=== PATIENT | female | born 1965 | race American Indian/Alaskan Native ===

== ENCOUNTER 2016-11-04 10:28 | Inpatient (IN) | payer MEDICARE ==
[2016-11-04] MEDS ORDERED: TRIDIL DRIP 50MG/250ML 250 ML ONE (10:40)
[2016-11-04] MEDS ORDERED: ATIVAN ONE (10:40)
[2016-11-04] MEDS ORDERED: ATIVAN IV ONE (10:53)
[2016-11-04] MEDS ORDERED: TRIDIL DRIP 50MG/250ML 250 ML IV SCH (11:00)
--- NOTE | 2016-11-04 11:06 | XRay Report ---
PORTABLE CHEST INDICATION: Respiratory distress. COMPARISON: 09/29/2016 FINDINGS: Portable, frontal chest radiograph again demonstrates congestive appearance with stable right sided central catheter. Mild cardiomegaly and light left retrocardiac opacity with partially obscured left hemidiaphragm. Mild fluid or thickening along the right minor fissure is new. EKG leads. Stable bones. CONCLUSION: Pulmonary vascular congestion again noted, as described. Thank you for the opportunity to participate in this patient's care.
--- NOTE | 2016-11-04 11:26 | Emergency Department Report ---
ED Shortness of Breath HPI - General Chief Complaint: Dyspnea/Respdistress Stated Complaint: MARVIN Time Seen by Provider: 11/04/16 10:32 Source: patient, EMS Mode of arrival: Stretcher Limitations: No Limitations - History of Present Illness Initial Comments: 51-year-old female presents to the emergency department via EMS in respiratory distress. Patient reports onset of symptoms earlier this morning. She denies chest pain or fever. She does report cough that is nonproductive. Patient usually gets dialysis on Thursday, , and Thursday. She has missed her last 2 treatments. There are no other complaints. MD Complaint: shortness of breath, cough -: Sudden, This morning Consistency: constant Improves With: nothing Known History Of: other (ESRD) Associated Symptoms: denies other symptoms Treatments Prior to Arrival: oxygen - Related Data Home Medications Medication Instructions Recorded Confirmed Last Taken Megestrol Acetate 40 ml PO DAILY 07/27/16 09/30/16 1 Day Ago Aspirin [Aspirin BABY CHEW TAB] 81 mg PO QDAY 09/30/16 09/30/16 1 Day Ago Calcium Carbonate [Calcium] 600 mg PO DAILY 09/30/16 09/30/16 1 Day Ago Carvedilol [Coreg] 12.5 mg PO BID 09/30/16 09/30/16 1 Day Ago Allergies Allergy/AdvReac Type Severity Reaction Status Date / Time No Known Allergies Allergy Unverified 07/23/15 13:08 ED Review of Systems ROS: Stated complaint: MARVIN Other details as noted in HPI Comment: All other systems reviewed and negative Respiratory: cough, shortness of breath ED Past Medical Hx - Past Medical History Previous Medical History?: Yes Hx Hypertension: Yes Hx Congestive Heart Failure: Yes Hx Renal Disease: Yes (ESRD,HD) Hx Arthritis: Yes Additional medical history: LUPUS - Surgical History Past Surgical History?: Yes Additional Surgical History: TONSILECTOMY. ovarian cyst removed. perma cath right chest - Family History Family history: no significant - Social History Smoking Status: Never Smoker Substance Use Type: None - Medications Home Medications: Home Medications Medication Instructions Recorded Confirmed Last Taken Type Megestrol Acetate 40 ml PO DAILY 07/27/16 09/30/16 1 Day Ago History Aspirin [Aspirin BABY CHEW TAB] 81 mg PO QDAY 09/30/16 09/30/16 1 Day Ago History Calcium Carbonate [Calcium] 600 mg PO DAILY 09/30/16 09/30/16 1 Day Ago History Carvedilol [Coreg] 12.5 mg PO BID 09/30/16 09/30/16 1 Day Ago History ED Physical Exam - General Limitations: No Limitations General appearance: alert, in distress (severe respiratory distress) - Head Head exam: Present: atraumatic, normocephalic - Eye Eye exam: Present: normal appearance, PERRL, EOMI - ENT ENT exam: Present: normal exam, normal orophraynx, mucous membranes moist - Neck Neck exam: Present: normal inspection, full ROM. Absent: tenderness - Respiratory Respiratory exam: Present: respiratory distress (moderate tachypnea), accessory muscle use, decreased breath sounds (diffuse bilateral posterior) - Cardiovascular Cardiovascular Exam: Present: normal rhythm, tachycardia, normal heart sounds - GI/Abdominal GI/Abdominal exam: Present: soft, normal bowel sounds. Absent: distended, tenderness - Extremities Exam Extremities exam: Present: normal inspection, full ROM. Absent: tenderness - Back Exam Back exam: Present: normal inspection, full ROM. Absent: tenderness - Neurological Exam Neurological exam: Present: alert, oriented X3. Absent: motor sensory deficit - Skin Skin exam: Present: warm, dry, intact ED Course Vital Signs 11/04/16 11/04/16 11/04/16 10:30 10:42 11:04 Pulse Rate 100 H 130 H 125 H Respiratory 38 H 48 H 44 H Rate Blood Pressure 198/94 138/82 O2 Sat by Pulse 98 100 99 Oximetry 11/04/16 11/04/16 11/04/16 11:05 11:08 11:15 Pulse Rate 122 H 125 H Respiratory 50 H 57 H 38 H Rate Blood Pressure 132/79 O2 Sat by Pulse 100 100 100 Oximetry 11/04/16 11/04/16 11/04/16 11:30 11:32 11:47 Pulse Rate 122 H 121 H Respiratory 63 H 59 H 48 H Rate Blood Pressure 134/80 132/79 O2 Sat by Pulse 100 100 100 Oximetry ED Medical Decision Making - Lab Data Result diagrams: 11/04/16 11:06 11/04/16 11:06 - EKG Data -: EKG Interpreted by Oh EKG shows normal: sinus rhythm, axis, intervals, QRS complexes Rate: tachycardia - EKG Data When compared to previous EKG there are: previous EKG unavailable Interpretation: nonspecific ST-T wave bebo - Radiology Data Radiology results: image reviewed interpreted by me: Portable chest x-ray shows changes consistent with pulmonary edema. - Medical Decision Making Upon arrival, the patient was placed on BiPAP and started on a nitroglycerin drip due to the elevated blood pressure and pulmonary edema on chest x-ray. I have spoken with Dr. Hill, nephrology. Patient is being set up for emergent dialysis. Patient is to be admitted by the hospitalist. - Differential Diagnosis pulmonary edema, CHF, electrolyte abnormality Critical Care Time: Yes Critical care time in (mins) excluding proc time.: 30 Critical care attestation.: If time is entered above; I have spent that time in minutes in the direct care of this critically ill patient, excluding procedure time. Critical Care Time: The high probability of a clinically significant, sudden or life threatening deterioration of the respiratory system(s) required my full and direct attention , intervention and personal management. The aggregate critical care time was 30 minutes. This time is in addition to time spent performing reported procedures but includes the following: [x] Data Review and interpretation [x] Patient assessment and monitoring of vital signs [x] Documentation [x] Medication orders and management ED Disposition Clinical Impression: ESRD on hemodialysis Volume overload Qualifiers: Hypervolemia type: other Qualified Code(s): E87.79 - Other fluid overload Pulmonary edema Qualifiers: Chronicity: acute Qualified Code(s): J81.0 - Acute pulmonary edema Disposition: OP ADMITTED IP TO THIS HOSP Is pt being admited?: Yes Condition: Fair Instructions: Pulmonary Edema (ED) Referrals: PRIMARY CAREMD [Primary Care Provider] - 3-5 Days Time of Disposition: 11:25
--- NOTE | 2016-11-04 11:32 | Admit Criteria Form ---
Admission Criteria Documentation: RENAL FAILURE, CHRONIC Clinical Indications for Admission to Inpatient Care (Place 'X' for any and all applicable criteria): Admission is indicated for ANY ONE of the following (1)(2)(3)(4)(5): [X ]I. Inpatient admission required rather than observation care (Use Renal Failure, Chronic: Observation Care Criteria as appropriate) because of ANY ONE of the following: [ X]a) Volume overload or uremic symptoms (eg, clinically significant pulmonary edema, hypertension, pericarditis, acidosis) too severe for, or not responsive (eg, for over 24 hours) to emergency department or observation care dialysis or treatment regimen (11) [ ]b) Hemodynamic instability that is severe or persistent [ ]c) Respiratory distress that is severe or persistent (11) [ ]d) Clinically significant electrolyte abnormality that requires inpatient care (eg,hyperkalemia with severe ECG findings)[B] [ ]e) Supplement O2 or respiratory therapy for over 24hrs that is performable only in acute inpatient setting [ ]f) Continuous IV infusion of anticoagulation, platelet inhibitor, vasoactive, or Antiarrhythmic medication (15), [ ]g) Pulmonary artery catheter monitoring [ ]h) Temporary pacemaker placement [ ]i) Emergent pericardiocentesis [ ]j) Other condition, treatment or monitoring requiring inpatient admission [ ]II. Unexplained syncope [A] [ ]III. Recurrent seizures [ ]IV. Severe infections not treatable in outpatient setting (eg, peritonitis)(9 ) [ ]V. Cardiac arrhythmias of immediate concern [ ]. Encephalopathy [ ]VII.Bleeding abnormalities (eg, platelet dysfunction) with active (eg, gastrointestinal) bleeding Extended stay beyond goal length of stay may be needed for (3)(4)(35)(36): [ ]a) Continuing uremic complications [ ]b) Comorbidities or complications The original [employer] content created by [employer] has been revised. The portions of the content which have been revised are identified through the use of italic text or in bold, and [facility] has neither reviewed nor approved the modified material. All other unmodified content is copyright [employer] Please see references footnoted in the original [facility] edition 2016 Admission Criteria Met: Yes
--- NOTE | 2016-11-04 11:33 | Consultation ---
History of Present Illness - Reason for Consult Consult date: 11/04/16 end stage renal disease - History of Present Illness This is a 51 year old female who has ESRD and is on hemodialysis every Thursday, and Thursday at [facility]. Patient missed hemodialysis on Thursday and presents to the E.R today which is also her dialysis day with a chief complaint of Shortness of breath. We are being consulted for provision of hemodialysis. Potassium level 7.5 on printed lab sheet. Patient to receive Kayexalate and STAT hemodialysis orders have been placed. Also reenforced compliance with hemodialysis with patient. Past History Past Medical History: anemia, diabetes, dialysis, ESRD, hypertension, renal failure Past Surgical History: Other (Perm-catheter placement) Social history: no significant social history Family history: no significant family history Medications and Allergies Allergies Allergy/AdvReac Type Severity Reaction Status Date / Time No Known Allergies Allergy Unverified 07/23/15 13:08 Home Medications Medication Instructions Recorded Confirmed Last Taken Type RX: Megestrol Acetate 40 ml PO DAILY 07/27/16 11/04/16 1 Day Ago History RX: Aspirin [Aspirin BABY CHEW TAB] 81 mg PO QDAY 09/30/16 11/04/16 1 Day Ago History RX: Calcium Carbonate [Calcium] 600 mg PO DAILY 09/30/16 11/04/16 1 Day Ago History RX: Carvedilol [Coreg] 12.5 mg PO BID 09/30/16 11/04/16 1 Day Ago History Active Meds: Active Medications Nitroglycerin/Dextrose (Tridil Drip 50mg/250ml) 250 mls @ 3 mls/hr IV TITR PASCUAL ; 10 MCG/MIN PRN Reason: Protocol Last Titration: 11/04/16 10:56 Dose: 10 mcg/min Review of Systems Constitutional: fatigue, no weight loss, no weight gain, no fever, no chills, no sweats Ears, nose, mouth and throat: no ear pain, no ear discharge, no tinnitis, no decreased hearing, no nose pain, no nasal congestion Breasts: deferred Cardiovascular: rapid/irregular heart beat, shortness of breath, no chest pain, no orthopnea, no palpitations Respiratory: shortness of breath, no cough, no cough with sputum, no excessive sputum, no hemoptysis Gastrointestinal: no abdominal pain, no nausea, no vomiting, no diarrhea, no constipation, no change in bowel habits Musculoskeletal: no neck stiffness, no neck pain, no shooting arm pain, no arm numbness/tingling, no low back pain, no shooting leg pain Integumentary: no rash, no pruritis, no redness, no sores, no wounds, no jaundice Neurological: no transient paralysis, no paralysis, no weakness, no parathesias , no numbness, no tingling, no seizures, no syncope Psychiatric: anxiety, irritability, no memory loss, no change in sleep habits, no sleep disturbances, no insomnia, no hypersomnia, no change in appetite, no change in libido Endocrine: no cold intolerance, no heat intolerance, no polyphagia, no excessive thirst, no polydipsia, no polyuria Exam - Vital Signs Vital signs: Vital Signs Pulse Resp Pulse Ox 100 H 38 H 98 11/04/16 10:30 11/04/16 10:30 11/04/16 10:30 - General Appearance General appearance: well-developed, appears stated age EENT: ATNC, PERRL, hearing intact, vision intact Neck: Present: neck supple Respiratory: Clear to Ascultation Heart: regular, S1S2 Gastrointestinal: Present: normoactive bowel sounds Integumentary: warm and dry Neurologic: alert and oriented x3 Musculoskeletal: Absent: deformities, joint swelling Psychiatric: agitated Results - Lab Results 11/04/16 11:06 11/04/16 11:06 Assessment and Plan - Patient Problems (1) ESRD on hemodialysis Current Visit: Yes Status: Chronic Plan to address problem: STAT hemodialysis now for UF and clearance Fluid restriction of 32 ounces per day Avoid Nephrotoxins Renally dose medications Obtain daily weights Assess dialysis needs daily (2) Volume overload Current Visit: Yes Status: Acute Qualifiers: Hypervolemia type: other Qualified Code(s): E87.79 - Other fluid overload Plan to address problem: STAT hemodialysis today Reenforced compliance with hemodialysis (3) Hyperkalemia Current Visit: No Status: Acute Plan to address problem: Kayexalate and hemodialysis today (4) Hypertensive CKD, ESRD on dialysis Current Visit: No Status: Chronic Plan to address problem: Blood pressures are stable
[2016-11-04 11:36] LABS: Basophils % (Auto) 0.7 % (0.0-1.8); Hematocrit 27.2 % (30.3-42.9); Hemoglobin 8.7 gm/dl (10.1-14.3); Mean Corpuscular HGB Conc 32 % (30-34); Mean Corpuscular Hemoglobin 29 pg (28-32); Mean Corpuscular Volume 91 fl (79-97); Platelet Count 233 K/mm3 (140-440); Red Blood Count 2.99 M/mm3 (3.65-5.03); Red Cell Distribution Width 16.4 % (13.2-15.2); White Blood Count 8.7 K/mm3 (4.5-11.0)
[2016-11-04 11:49] LABS: Albumin 3.6 g/dL (3.9-5); Albumin/Globulin Ratio 0.8 %; BUN/Creatinine Ratio 6.01; Bilirubin,Total 0.4 mg/dL (0.1-1.2); Calcium 9.3 mg/dL (8.4-10.2); Chloride 88.8 mmol/L (98-107); Magnesium 2.4 mg/dL (1.7-2.3); Total Protein 8.2 g/dL (6.3-8.2)
[2016-11-04 11:52] LABS: Potassium 7.5 mmol/L (3.6-5.0)
[2016-11-04] MEDS ORDERED: KAYEXALATE ONE (12:01)
[2016-11-04] MEDS ORDERED: KAYEXALATE PO ONE (12:09)
[2016-11-04] MEDS ORDERED: MILK OF MAGNESIA PO PRN (12:40)
[2016-11-04] MEDS ORDERED: ALUM-MAG HYDROX-SIMETH 200-200-20MG/5ML PO PRN (12:40)
[2016-11-04] MEDS ORDERED: DULCOLAX PR PRN (12:40)
[2016-11-04] MEDS ORDERED: HEPARIN ONE (14:44)
[2016-11-04] MEDS ORDERED: NACL 0.9% 1000 ML 2,000 ML ONE (14:44)
[2016-11-04] MEDS ORDERED: HEPARIN IV PRN (18:24)
[2016-11-04 18:54] LABS: Creatine Kinase MB 2.7 ng/mL (0.0-4.0); Potassium 3.4 mmol/L (3.6-5.0)
[2016-11-04 18:55] LABS: BUN/Creatinine Ratio 5.47; Calcium 7.6 mg/dL (8.4-10.2); Chloride 95.1 mmol/L (98-107); Potassium 3.5 mmol/L (3.6-5.0)
--- NOTE | 2016-11-04 19:46 | History and Physical Report ---
History of Present Illness Date of examination: 11/04/16 Date of admission: 11/04/16 11:26 Chief complaint: shortness of breath History of present illness: Patient is a 51-year-old female with history of end-stage renal disease, lupus, hypertension, anemia, cardiomyopathy although recent cardiac catheterization showed normal coronary arteries who presents to the ER following to missed sessions of dialysis and was acutely shortness of breath, with intermittent complaint of reproducible chest pain which she rates at 3/10 in intensity with no exacerbating factors. In the ER she was noted to be in florid pulmonary edema with severe hyperkalemia requiring emergent dialysis. She is very weak and lethargic also with the heart rate in the 120s on blood pressure in the 180s systolic unable to provide much information due to BiPAP significant shortness of breath. ROS Constitutional: No fever, fatigue or weight loss. Skin: No rash. Eyes: No recent vision problems or eye pain. ENT: No congestion, ear pain, or sore throat. Endocrine: No thyroid problems. Cardiovascular: Chest pain Respiratory: Less of breath and congestion with no wheezing Gastrointestinal: No abdominal pain, nausea, vomiting, or diarrhea. Genitourinary: No dysuria. Musculoskeletal: No joint swelling. Neurologic: No seizures. Hematologic: No unusual bruising or bleeding. Psychiatric: No psychiatric problems, hallucinations or depression. All other systems reviewed and otherwise negative. Past History Past Medical History: anemia, diabetes, dialysis, ESRD, hypertension, renal failure Past Surgical History: Other (Perm-catheter placement) Social history: no significant social history Family history: no significant family history Medications and Allergies Allergies Allergy/AdvReac Type Severity Reaction Status Date / Time No Known Allergies Allergy Unverified 07/23/15 13:08 Home Medications Medication Instructions Recorded Confirmed Last Taken Type Megestrol Acetate 40 ml PO DAILY 07/27/16 11/04/16 1 Day Ago History Aspirin [Aspirin BABY CHEW TAB] 81 mg PO QDAY 09/30/16 11/04/16 1 Day Ago History Calcium Carbonate [Calcium] 600 mg PO DAILY 09/30/16 11/04/16 1 Day Ago History Carvedilol [Coreg] 12.5 mg PO BID 09/30/16 11/04/16 1 Day Ago History Active Meds: Active Medications Al Hydrox/Mg Hydrox/Simethicone (Alum-Mag Hydrox-Simeth [phone]/5ml) 30 ml PO Q4H PRN PRN Reason: Indigestion Aspirin (Baby Aspirin) 81 mg PO QDAY PASCUAL Bisacodyl (Dulcolax) 10 mg [place] QDAY PRN PRN Reason: constipation unrelieved by MOM Calcium Carbonate/Glycine (Calcium Carbonate) 648 mg PO QDAY PASCUAL Carvedilol (Coreg) 12.5 mg PO BID PASCUAL Epoetin Wes (Epogen) 20,000 unit IV MARIANNA PRN PRN Reason: hemodialysis Last Admin: 11/04/16 18:24 Dose: 20,000 unit Heparin Sodium (Porcine) (Heparin) 5,000 unit IV MARIANNA PRN; Protocol PRN Reason: hemodialysis Nitroglycerin/Dextrose (Tridil Drip 50mg/250ml) 250 mls @ 3 mls/hr IV TITR PASCUAL ; 10 MCG/MIN PRN Reason: Protocol Last Titration: 11/04/16 10:56 Dose: 10 mcg/min Magnesium Hydroxide (Milk Of Magnesia) 30 ml PO Q4H PRN PRN Reason: Constipation Exam - Physical Exam Narrative exam: VITAL SIGNS: Reviewed. GENERAL: The patient appeared well nourished significantly dyspneic only able to answer yes or no on a BiPAP. Vital signs as documented. HEAD: No signs of head trauma. EYES: Pupils are equal. Extraocular motions intact. EARS: Hearing grossly intact. MOUTH: Oropharynx is normal. NECK: No adenopathy, no JVD. CHEST: Chest with Crohn's breath sounds bilaterally. Increased accessory muscle use No wheezes, rales, or rhonchi. CARDIAC: Tachycardia. S1 and S2, without murmurs, gallops, or rubs. VASCULAR: No Edema. Peripheral pulses normal and equal in all extremities. ABDOMEN: Soft, without detectable tenderness. No sign of distention. No rebound or guarding, and no masses palpated. Bowel Sounds normal. MUSCULOSKELETAL: Good range of motion of all major joints. Extremities without clubbing, cyanosis or edema. NEUROLOGIC EXAM: Alert and oriented x 3. No focal sensory or strength deficits. Speech limited and in burst. Follows commands. PSYCHIATRIC: Mood normal. SKIN: Appropriate wrinkles blemishes. - Constitutional Vitals: Temp Pulse Resp BP Pulse Ox 99.0 F 106 H 33 H 127/69 100 11/04/16 19:00 11/04/16 19:00 11/04/16 19:00 11/04/16 19:00 11/04/16 19:00 Results - Labs CBC & Chem 7: 11/05/16 04:08 11/05/16 04:08 Labs: Laboratory Last Values WBC 8.7 K/mm3 (4.5-11.0) 11/04/16 11:06 RBC 2.99 M/mm3 (3.65-5.03) L 11/04/16 11:06 Hgb 8.7 gm/dl (10.1-14.3) L 11/04/16 11:06 Hct 27.2 % (30.3-42.9) L 11/04/16 11:06 MCV 91 fl (79-97) 11/04/16 11:06 MCH 29 pg (28-32) 11/04/16 11:06 MCHC 32 % (30-34) 11/04/16 11:06 RDW 16.4 % (13.2-15.2) H 11/04/16 11:06 Plt Count 233 K/mm3 (140-440) 11/04/16 11:06 Lymph % (Auto) 8.6 % (13.4-35.0) L 11/04/16 11:06 [place] % (Auto) 2.2 % (0.0-7.3) 11/04/16 11:06 Eos % (Auto) 0.0 % (0.0-4.3) 11/04/16 11:06 Baso % (Auto) 0.7 % (0.0-1.8) 11/04/16 11:06 Lymph # 0.7 K/mm3 (1.2-5.4) L 11/04/16 11:06 [place] # 0.2 K/mm3 (0.0-0.8) 11/04/16 11:06 Eos # 0.0 K/mm3 (0.0-0.4) 11/04/16 11:06 Baso # 0.1 K/mm3 (0.0-0.1) 11/04/16 11:06 Seg Neutrophils % 88.5 % (40.0-70.0) H 11/04/16 11:06 Seg Neutrophils # 7.7 K/mm3 (1.8-7.7) 11/04/16 11:06 Sodium 137 mmol/L (137-145) 11/04/16 18:00 Potassium 3.5 mmol/L (3.6-5.0) L 11/04/16 18:00 Chloride 95.1 mmol/L (98-107) L 11/04/16 18:00 Carbon Dioxide 29 mmol/L (22-30) 11/04/16 18:00 Anion Gap 16 mmol/L 11/04/16 18:00 BUN 23 mg/dL (7-17) H 11/04/16 18:00 Creatinine 4.2 mg/dL (0.7-1.2) H D 11/04/16 18:00 Estimated GFR 14 ml/min 11/04/16 18:00 BUN/Creatinine Ratio 5.47 % 11/04/16 18:00 Glucose 108 mg/dL (65-100) H 11/04/16 18:00 Calcium 7.6 mg/dL (8.4-10.2) L D 11/04/16 18:00 Magnesium 2.4 mg/dL (1.7-2.3) H 11/04/16 11:06 Total Bilirubin 0.4 mg/dL (0.1-1.2) 11/04/16 11:06 AST 42 units/L (5-40) H 11/04/16 11:06 ALT 28 units/L (7-56) 11/04/16 11:06 Alkaline Phosphatase 87 units/L (35-129) 11/04/16 11:06 Total Creatine Kinase 49 units/L (30-135) 11/04/16 18:00 CK-MB (CK-2) 2.7 ng/mL (0.0-4.0) 11/04/16 18:00 CK-MB (CK-2) Rel Index 5.5 (0-4) H 11/04/16 18:00 Troponin T 0.416 ng/mL (0.00-0.029) H* D 11/04/16 18:00 Total Protein 8.2 g/dL (6.3-8.2) 11/04/16 11:06 Albumin 3.6 g/dL (3.9-5) L 11/04/16 11:06 Albumin/Globulin Ratio 0.8 % 11/04/16 11:06 Triglycerides 88 mg/dL (2-149) 11/04/16 11:06 Cholesterol 173 mg/dL (50-199) 11/04/16 11:06 LDL Cholesterol Direct 101 mg/dL (50-130) 11/04/16 11:06 HDL Cholesterol 55 mg/dL (40-59) 11/04/16 11:06 Cholesterol/HDL Ratio 3.14 % 11/04/16 11:06 - Imaging and Cardiology EKG: image reviewed (sinus tachycardia, personal review) Chest x-ray: image reviewed (pulmonary congestion) Assessment and Plan Assessment and plan: Patient is a 51-year-old female with history of end-stage renal disease, lupus, hypertension, anemia, cardiomyopathy although recent cardiac catheterization showed normal coronary arteries who presents to the ER following to missed sessions of dialysis and was acutely shortness of breath, with intermittent complaint of reproducible chest pain which she rates at 3/10 in intensity with no exacerbating factors. In the ER she was noted to be in florid pulmonary edema with severe hyperkalemia requiring emergent dialysis. She is very weak and lethargic also with the heart rate in the 120s on blood pressure in the 180s systolic unable to provide much information due to BiPAP significant shortness of breath. * Acute hypoxic respiratory failure * esrd * fluid overload * pulmonary vascular congestion * hyperkalemia * Anemia * atypical chest pain * Tachycardia * hypertensive urgency Plan * [employer] Administrator has also already been consulted patient will have emergent dialysis * Will admit patient to the ICU for close monitoring * Patient also received a stat Kayexalate in the ER electrolytes * Doubt congestive heart failure but consider an elevated troponin although this is likely secondary to the renal failure and report of chest pain will obtain cardiology consultation * Echocardiogram * Resume medications * DVT/GI prophylaxis * The high probability of a clinically significant, sudden or life threatening deterioration of the [cardiac, renal, pulmonary] system(s) required my full and direct attention, intervention and personal management. The aggregate critical care time was [45] minutes. This time is in addition to time spent performing reported procedures but includes the following: [x] Data Review and interpretation [x] Patient assessment and monitoring of vital signs [x] Documentation [x] Medication orders and management Advance Directives: Yes Plan of care discussed with patient/family: Yes
[2016-11-04] MEDS: COREG PO SCH (22:06)
[2016-11-05 02:15] LABS: Creatine Kinase MB 1.7 ng/mL (0.0-4.0)
[2016-11-05 05:03] LABS: Basophils % (Auto) 0.6 % (0.0-1.8); Hemoglobin 7.2 gm/dl (10.1-14.3); Mean Corpuscular HGB Conc 33 % (30-34); Mean Corpuscular Hemoglobin 29 pg (28-32); Mean Corpuscular Volume 90 fl (79-97); Platelet Count 169 K/mm3 (140-440); Red Blood Count 2.46 M/mm3 (3.65-5.03); Red Cell Distribution Width 16.2 % (13.2-15.2); White Blood Count 3.3 K/mm3 (4.5-11.0)
[2016-11-05 05:34] LABS: Albumin 2.9 g/dL (3.9-5); Albumin/Globulin Ratio 0.7 %; BUN/Creatinine Ratio 4.63; Bilirubin,Total 0.3 mg/dL (0.1-1.2); Calcium 7.9 mg/dL (8.4-10.2); Chloride 93.9 mmol/L (98-107); Phosphorous 3.9 mg/dL (2.5-4.5); Potassium 4.7 mmol/L (3.6-5.0); Total Protein 6.8 g/dL (6.3-8.2)
[2016-11-05] MEDS: BABY ASPIRIN PO SCH (09:39)
[2016-11-05] MEDS: CALCIUM CARBONATE PO SCH ×2 (09:39→11:30)
[2016-11-05] MEDS: COREG PO SCH ×2 (09:39→21:17)
--- NOTE | 2016-11-05 11:55 | Consultation ---
History of Present Illness Consult date: 11/05/16 Consult reason: congestive heart failure History of present illness: Patient is presenting with shortness of breath, and chest tightness. Patient has missed 2 HD sessions. She was recently started on Remeron in order to improve her appetite but the medication caused her severe sedative effect to the degree that she was not able to go to the dialysis center. A cardiac consultation was ordered due to elevated cardiac enzymes. Past History Past Medical History: anemia, diabetes, dialysis, ESRD, hypertension, renal failure Past Surgical History: Other (Perm-catheter placement) Social history: no significant social history Family history: no significant family history Medications and Allergies Allergies Allergy/AdvReac Type Severity Reaction Status Date / Time No Known Allergies Allergy Unverified 07/23/15 13:08 Home Medications Medication Instructions Recorded Confirmed Last Taken Type Megestrol Acetate 40 ml PO DAILY 07/27/16 11/04/16 1 Day Ago History Aspirin [Aspirin BABY CHEW TAB] 81 mg PO QDAY 09/30/16 11/04/16 1 Day Ago History Calcium Carbonate [Calcium] 600 mg PO DAILY 09/30/16 11/04/16 1 Day Ago History Carvedilol [Coreg] 12.5 mg PO BID 09/30/16 11/04/16 1 Day Ago History Active Meds: Active Medications Al Hydrox/Mg Hydrox/Simethicone (Alum-Mag Hydrox-Simeth [id number]) 30 ml PO Q4H PRN PRN Reason: Indigestion Aspirin (Baby Aspirin) 81 mg PO QDAY [facility] Last Admin: 11/05/16 09:39 Dose: 81 mg Bisacodyl (Dulcolax) 10 mg [place] QDAY PRN PRN Reason: constipation unrelieved by MOM Calcium Carbonate/Glycine (Calcium Carbonate) 648 mg PO QDAY [facility] Last Admin: 11/05/16 11:30 Dose: Not Given Carvedilol (Coreg) 12.5 mg PO BID [facility] Last Admin: 11/05/16 09:39 Dose: 12.5 mg Epoetin Wes (Epogen) 20,000 unit IV MARIANNA PRN PRN Reason: hemodialysis Last Admin: 11/04/16 18:24 Dose: 20,000 unit Heparin Sodium (Porcine) (Heparin) 5,000 unit IV MARIANNA PRN; Protocol PRN Reason: hemodialysis Nitroglycerin/Dextrose (Tridil Drip 50mg/250ml) 250 mls @ 3 mls/hr IV TITR PASCUAL ; 10 MCG/MIN PRN Reason: Protocol Last Titration: 11/04/16 10:56 Dose: 10 mcg/min Magnesium Hydroxide (Milk Of Magnesia) 30 ml PO Q4H PRN PRN Reason: Constipation Review of Systems All systems: negative Physical Examination Vital Signs Pulse Resp Pulse Ox 100 H 38 H 98 11/04/16 10:30 11/04/16 10:30 11/04/16 10:30 General appearance: no acute distress HEENT: Positive: PERRL Neck: Positive: neck supple Cardiac: Positive: Reg Rate and Rhythm, Diastolic Murmur Lungs: Positive: Normal Exam Neuro: Positive: Grossly Intact Results 11/05/16 04:08 11/05/16 04:08 Cardiac Enzymes 11/04/16 11/05/16 11/05/16 Range/Units 18:00 01:11 04:08 AST 33 (5-40) units/L CK-MB (CK-2) 2.7 1.7 (0.0-4.0) ng/mL CBC 11/05/16 Range/Units 04:08 WBC 3.3 L (4.5-11.0) K/mm3 RBC 2.46 L (3.65-5.03) M/mm3 Hgb 7.2 L (10.1-14.3) gm/dl Hct 22.0 L (30.3-42.9) % Plt Count 169 (140-440) K/mm3 Lymph # 1.0 L (1.2-5.4) K/mm3 Greer # 0.2 (0.0-0.8) K/mm3 Eos # 0.0 (0.0-0.4) K/mm3 Baso # 0.0 (0.0-0.1) K/mm3 Comprehensive Metabolic Panel 11/04/16 11/04/16 11/05/16 Range/Units 18:00 18:00 04:08 Sodium 137 137 (137-145) mmol/L Potassium 3.4 L D 3.5 L 4.7 D (3.6-5.0) mmol/L Chloride 95.1 L 93.9 L (98-107) mmol/L Carbon Dioxide 29 28 (22-30) mmol/L BUN 23 H 32 H (7-17) mg/dL Creatinine 4.2 H D 6.9 H D (0.7-1.2) mg/dL Glucose 108 H 71 (65-100) mg/dL Calcium 7.6 L D 7.9 L (8.4-10.2) mg/dL AST 33 (5-40) units/L ALT 22 (7-56) units/L Alkaline Phosphatase 70 (35-129) units/L Total Protein 6.8 (6.3-8.2) g/dL Albumin 2.9 L (3.9-5) g/dL Assessment and Plan Non-specific troponin I abmormality Cath 09/12/2016 - normal coronaries Severe aortic regurgitation noted by echocardiogram this admission Patient was noted to have only trace to mild AR on an outpatient echo done No evidence of aortic root dissection on echocardiogram Cardiomyopathy, non-ischemic, LVEF 40-45% ESRD on HD SLE Anemia Recommendations: Fluid management through HD Patient needs a VY in order to better evaluate her aortic valve. She will eventually need an aortic valve replacement. Will plan for VY on thursday.
--- NOTE | 2016-11-05 11:55 | Echocardiography Report ---
Transthoracic Echocardiogram Indication: CHF BP: 108/59 HR: 91 Conclusions *Global left ventricular systolic function is mild to moderately decreased. *The estimated ejection fraction is 40-45%. *There is severe aortic regurgitation. *There is moderate mitral regurgitation. *There is mild tricuspid regurgitation. *The pulmonic valve has a dilated annulus. *There is mild to moderate pulmonic regurgitation. *A small pericardial effusion is visualized. Findings Procedure Info: The study quality is good. Left Ventricle: The left ventricular chamber size is normal. Posterior wall hypertrophy is observed. Global left ventricular systolic function is mild to moderately decreased. The estimated ejection fraction is 40-45%. Left Atrium: The left atrium is normal in size with no visual thrombus identified. The left atrial chamber size is normal. Right Ventricle: The right ventricle wall thickness is mildly increased. The right ventricular cavity size is normal. The right ventricular global systolic function is normal. No pacemaker wire is visualized in the right ventricle. Right Atrium: The right atrium is mildly dilated. No pacemaker wire is visualized in the right atrium. Aortic Valve: The aortic valve is trileaflet. There is severe aortic regurgitation. There is no evidence of aortic stenosis. The aortic valve area, by VTI's, is calculated at 1.44 cm2. Mitral Valve: The mitral valve leaflets appear normal. There is moderate mitral regurgitation. There is no evidence of mitral stenosis. Tricuspid Valve: There is mild tricuspid regurgitation. Pulmonic Valve: The pulmonic valve is not well visualized. The pulmonic valve has a dilated annulus. There is mild to moderate pulmonic regurgitation. There is no pulmonic stenosis. Pericardium: A pericardial effusion is visualized. A trivial pericardial effusion is visualized. The pericardial effusion is seen adjacent to the left ventricle. No pleural effusion is present. Aorta: The aorta appears normal. Pulmonary Artery: The main pulmonary artery is not well visualized. Venous: The inferior vena cava appears normal in size. There is less than 50% respiratory change in the inferior vena cava dimension. Measurements Chambers MM Name Value Normal Range IVSd (MM) 1.08 cm (0.6 - 1.1) LVPWd (MM) 1.17 cm (0.6 - 1.1) IVS:LVPW ratio 0.92 ratio - LVIDd (MM) 5.44 cm (3.7 - 5.6) LVIDs (MM) 4.28 cm (2 - 2.8) LV FS (Teichholz) (MM) 21.3 % - LV FS (cube) (MM) 21.3 % - EF Teichholz (MM) 42.9 % - Ao root diameter (MM) 2.9 cm (2 - 3.7) LA dimension (AP) MM 3.8 cm (1.9 - 4) LA:Ao ratio (MM) 1.31 ratio - AV cusp separation (MM) 2.2 cm (1.5 - 2.6) Chambers 2D Name Value Normal Range IVSd (2D) 1.1 cm (0.6 - 1.1) LVPWd 1.4 cm - LVPWd (2D) 1.42 cm (0.6 - 1.1) IVS:LVPW ratio (2D) 0.78 ratio - LVIDd 4.8 cm - LVIDs 3.8 cm - LVIDd (2D) 4.82 cm (3.7 - 5.6) LVIDs (2D) 3.81 cm (2 - 3.8) LV FS (Teichholz) (2D) 21 % - LV FS (cube) (2D) 21 % - LV EF (2D) 43 % - EF Teichholz (2D) 42.8 % - LA dimension 3.6 cm - Ao root diameter (2D) 2.6 cm (2 - 3.7) LA dimension (AP) 2D 3.6 cm (1.9 - 4) LA:Ao ratio (2D) 1.38 ratio - Volumes/Mass Name Value Normal Range LA ESV SP 4CH (MOD) 68 ml - LV EDV SP 4CH (MOD) 127 ml - LV ESV SP 4CH (MOD) 71 ml - EF SP 4CH (MOD) 44 % - Diastolic/Systolic Function Name Value Normal Range MV E-wave Vmax 1.67 m/sec - MV deceleration time 144 msec - Aortic Valve Name Value Normal Range AV VTI 46 cm - AV mean gradient 13 mmHg - LVOT diameter 1.8 cm - LVOT Vmax 1.38 m/sec - LVOT VTI 26 cm - LVOT peak gradient 8 mmHg - LVOT mean gradient 4 mmHg - SV LVOT 66 ml - JAMES (continuity VTI) 1.44 cm2 - AR PHT 184 msec - AR peak gradient 85 mmHg - Mitral Valve Name Value Normal Range MR Vmax 4.88 m/sec - MR VTI 148 cm - Tricuspid Valve Name Value Normal Range TR Vmax 3.05 m/sec - TR peak gradient 37 mmHg - RAP 8 mmHg - RVSP 45 mmHg - Pulmonic Valve/Qp:Qs Name Value Normal Range PV Vmax 0.57 m/sec - PV peak gradient 1 mmHg - LA end-diastolic Vmax 1.79 m/sec - PV acceleration time 130 msec -
--- NOTE | 2016-11-05 13:32 | Progress Note ---
Assessment and Plan Assessment and plan: Patient is a 51-year-old female with history of end-stage renal disease, lupus, hypertension, anemia, cardiomyopathy although recent cardiac catheterization showed normal coronary arteries who presents to the ER following to missed sessions of dialysis and was acutely shortness of breath, with intermittent complaint of reproducible chest pain which she rates at 3/10 in intensity with no exacerbating factors. In the ER she was noted to be in florid pulmonary edema with severe hyperkalemia requiring emergent dialysis. She is very weak and lethargic also with the heart rate in the 120s on blood pressure in the 180s systolic unable to provide much information due to BiPAP significant shortness of breath. * Acute hypoxic respiratory failure * esrd * fluid overload * Severe aortic valve on echocardiogram * pulmonary vascular congestion * hyperkalemia * Anemia * atypical chest pain * Tachycardia * hypertensive urgency Plan * Virtual Customer Assistant input noted patient was dialyzed yesterday. * We'll wean off nitro drip and transfer to the ICU * Discussed with coconut cooker Dr. Moyer, machine designer Dr. Olivera * VY recommended by cardiology to evaluate aortic valve * Resume medications * DVT/GI prophylaxis The high probability of a clinically significant, sudden or life threatening deterioration of the [cardiac, renal, pulmonary] system(s) required my full and direct attention, intervention and personal management. The aggregate critical care time was [45] minutes. This time is in addition to time spent performing reported procedures but includes the following: [x] Data Review and interpretation [x] Patient assessment and monitoring of vital signs [x] Documentation [x] Medication orders and management History Interval history: Patient seen and examined this morning in no acute distress, reports improvement of chest pain Denies any, nausea, vomiting, diarrhea No fever noted blood pressure controlled No adverse events reported to me by nursing staff Hospitalist Physical - Physical exam Narrative exam: VITAL SIGNS: Reviewed. GENERAL: The patient appeared well nourished significantly dyspneic only able to answer yes or no on a BiPAP. Vital signs as documented. HEAD: No signs of head trauma. EYES: Pupils are equal. Extraocular motions intact. EARS: Hearing grossly intact. MOUTH: Oropharynx is normal. NECK: No adenopathy, no JVD. CHEST: Chest with Crohn's breath sounds bilaterally. Increased accessory muscle use No wheezes, rales, or rhonchi. CARDIAC: Tachycardia. S1 and S2, diastolic murmurs, gallops, or rubs. VASCULAR: No Edema. Peripheral pulses normal and equal in all extremities. ABDOMEN: Soft, without detectable tenderness. No sign of distention. No rebound or guarding, and no masses palpated. Bowel Sounds normal. MUSCULOSKELETAL: Good range of motion of all major joints. Extremities without clubbing, cyanosis or edema. NEUROLOGIC EXAM: Alert and oriented x 3. No focal sensory or strength deficits. Speech limited and in burst. Follows commands. PSYCHIATRIC: Mood normal. SKIN: Appropriate wrinkles blemishes. - Constitutional Vitals: Temp Pulse Resp BP Pulse Ox 97.9 F 79 27 H 105/53 100 11/05/16 12:00 11/05/16 12:45 11/05/16 12:45 11/05/16 12:45 11/05/16 12:45 General appearance: Present: no acute distress Results - Labs CBC & Chem 7: 11/05/16 17:14 11/05/16 04:08 Labs: Laboratory Last Values WBC 3.3 K/mm3 (4.5-11.0) L 11/05/16 04:08 RBC 2.46 M/mm3 (3.65-5.03) L 11/05/16 04:08 Hgb 7.2 gm/dl (10.1-14.3) L 11/05/16 04:08 Hct 22.0 % (30.3-42.9) L 11/05/16 04:08 MCV 90 fl (79-97) 11/05/16 04:08 MCH 29 pg (28-32) 11/05/16 04:08 MCHC 33 % (30-34) 11/05/16 04:08 RDW 16.2 % (13.2-15.2) H 11/05/16 04:08 Plt Count 169 K/mm3 (140-440) 11/05/16 04:08 Lymph % (Auto) 28.8 % (13.4-35.0) 11/05/16 04:08 Granite % (Auto) 6.0 % (0.0-7.3) 11/05/16 04:08 Eos % (Auto) 0.0 % (0.0-4.3) 11/05/16 04:08 Baso % (Auto) 0.6 % (0.0-1.8) 11/05/16 04:08 Lymph # 1.0 K/mm3 (1.2-5.4) L 11/05/16 04:08 Granite # 0.2 K/mm3 (0.0-0.8) 11/05/16 04:08 Eos # 0.0 K/mm3 (0.0-0.4) 11/05/16 04:08 Baso # 0.0 K/mm3 (0.0-0.1) 11/05/16 04:08 Seg Neutrophils % 64.6 % (40.0-70.0) 11/05/16 04:08 Seg Neutrophils # 2.2 K/mm3 (1.8-7.7) 11/05/16 04:08 Sodium 137 mmol/L (137-145) 11/05/16 04:08 Potassium 4.7 mmol/L (3.6-5.0) D 11/05/16 04:08 Chloride 93.9 mmol/L (98-107) L 11/05/16 04:08 Carbon Dioxide 28 mmol/L (22-30) 11/05/16 04:08 Anion Gap 20 mmol/L 11/05/16 04:08 BUN 32 mg/dL (7-17) H 11/05/16 04:08 Creatinine 6.9 mg/dL (0.7-1.2) H D 11/05/16 04:08 Estimated GFR 8 ml/min 11/05/16 04:08 BUN/Creatinine Ratio 4.63 % 11/05/16 04:08 Glucose 71 mg/dL (65-100) 11/05/16 04:08 Calcium 7.9 mg/dL (8.4-10.2) L 11/05/16 04:08 Phosphorus 3.9 mg/dL (2.5-4.5) 11/05/16 04:08 Magnesium 2.4 mg/dL (1.7-2.3) H 11/04/16 11:06 Total Bilirubin 0.3 mg/dL (0.1-1.2) 11/05/16 04:08 AST 33 units/L (5-40) 11/05/16 04:08 ALT 22 units/L (7-56) 11/05/16 04:08 Alkaline Phosphatase 70 units/L (35-129) 11/05/16 04:08 Total Creatine Kinase 55 units/L (30-135) 11/05/16 01:11 CK-MB (CK-2) 1.7 ng/mL (0.0-4.0) 11/05/16 01:11 CK-MB (CK-2) Rel Index 3.0 (0-4) 11/05/16 01:11 Troponin T 0.568 ng/mL (0.00-0.029) H* D 11/05/16 01:11 Total Protein 6.8 g/dL (6.3-8.2) 11/05/16 04:08 Albumin 2.9 g/dL (3.9-5) L 11/05/16 04:08 Albumin/Globulin Ratio 0.7 % 11/05/16 04:08 Triglycerides 88 mg/dL (2-149) 11/04/16 11:06 Cholesterol 173 mg/dL (50-199) 11/04/16 11:06 LDL Cholesterol Direct 101 mg/dL (50-130) 11/04/16 11:06 HDL Cholesterol 55 mg/dL (40-59) 11/04/16 11:06 Cholesterol/HDL Ratio 3.14 % 11/04/16 11:06
--- NOTE | 2016-11-05 14:24 | Progress Note ---
Assessment and Plan - Patient Problems (1) ESRD (end stage renal disease) on dialysis Current Visit: No Status: Acute Plan to address problem: Status post Hemodialysis yesterday for ultrafiltration and clearance No indication for HD today Hemodialysis tomorrow for UF and clearance via Right Perm Catheter Assess need for HD on daily basis Renally dose medications Renal diet Obtain daily weight Strict intake and output Renal plan discussed with Dr Hill Continue supportive therapy (2) Anemia in chronic kidney disease (CKD) Current Visit: No Status: Chronic Plan to address problem: Hemoglobin level decreased to 7.2 today, may need blood transfusion if Hgb level continues to trend down Repeat H/H at 1500 Epogen dosing during HD for anemia management Obtain iron studies Obtain occult stool (3) Hyperkalemia Current Visit: No Status: Acute Plan to address problem: Hyperkalemia- resolved Hemodialysis tomorrow for clearance and ultrafiltration HD prescription adjusted to 2K [place] Renal diet (4) Hypertensive CKD, ESRD on dialysis Current Visit: No Status: Chronic Plan to address problem: Currently on Coreg 12.5 mg orally twice a day Continue to monitor blood pressure closely Subjective Date of service: 11/05/16 Interval history: Patient reports feeling ok today, no acute distress. No family at bedside at time of my examination. Objective - Vital Signs Vital signs: Vital Signs - 12hr 11/05/16 11/05/16 11/05/16 02:25 02:30 02:31 Temperature Pulse Rate 109 H 104 H 103 H Respiratory 13 27 H 18 Rate Blood Pressure 114/64 117/67 117/67 O2 Sat by Pulse 100 100 100 Oximetry 11/05/16 11/05/16 11/05/16 02:45 03:00 03:15 Temperature Pulse Rate 105 H 103 H 101 H Respiratory 19 36 H 25 H Rate Blood Pressure 116/65 117/67 108/64 O2 Sat by Pulse 100 100 100 Oximetry 11/05/16 11/05/16 11/05/16 03:30 03:45 04:00 Temperature 99.7 F H Pulse Rate 101 H 100 H 101 H Respiratory 32 H 26 H 35 H Rate Blood Pressure 107/63 114/63 117/63 O2 Sat by Pulse 100 100 99 Oximetry 11/05/16 11/05/16 11/05/16 04:15 04:30 04:31 Temperature Pulse Rate 103 H 100 H 101 H Respiratory 35 H 21 33 H Rate Blood Pressure 114/64 115/64 115/64 O2 Sat by Pulse 100 100 100 Oximetry 11/05/16 11/05/16 11/05/16 04:35 04:37 04:45 Temperature Pulse Rate 100 H 98 H 100 H Respiratory 39 H 37 H 30 H Rate Blood Pressure 115/64 115/64 117/70 O2 Sat by Pulse 100 100 100 Oximetry 11/05/16 11/05/16 11/05/16 04:46 04:47 05:00 Temperature Pulse Rate 97 H 100 H 99 H Respiratory 23 20 29 H Rate Blood Pressure 107/63 117/70 119/66 O2 Sat by Pulse 100 100 100 Oximetry 11/05/16 11/05/16 11/05/16 05:11 05:13 05:15 Temperature Pulse Rate 102 H 99 H 97 H Respiratory 31 H 34 H 34 H Rate Blood Pressure 119/66 119/66 117/64 O2 Sat by Pulse 100 100 100 Oximetry 11/05/16 11/05/16 11/05/16 05:21 05:30 05:45 Temperature Pulse Rate 105 H 102 H 97 H Respiratory 37 H 36 H 26 H Rate Blood Pressure 117/64 115/67 117/62 O2 Sat by Pulse 100 100 Oximetry 11/05/16 11/05/16 11/05/16 06:00 06:15 06:30 Temperature Pulse Rate 97 H 96 H 94 H Respiratory 15 22 29 H Rate Blood Pressure 114/63 114/63 127/63 O2 Sat by Pulse 100 100 Oximetry 11/05/16 11/05/16 11/05/16 06:39 06:45 07:00 Temperature Pulse Rate 95 H 98 H 94 H Respiratory 37 H 28 H 30 H Rate Blood Pressure 127/63 121/64 107/62 O2 Sat by Pulse 100 100 100 Oximetry 11/05/16 11/05/16 11/05/16 07:15 07:30 07:41 Temperature Pulse Rate 92 H 93 H 92 H Respiratory 29 H 35 H 30 H Rate Blood Pressure 108/59 117/61 117/61 O2 Sat by Pulse 100 100 100 Oximetry 11/05/16 11/05/16 11/05/16 07:45 08:00 08:15 Temperature 99.4 F Pulse Rate 93 H 95 H 96 H Respiratory 31 H 31 H 30 H Rate Blood Pressure 115/59 116/60 120/65 O2 Sat by Pulse 100 100 100 Oximetry 11/05/16 11/05/16 11/05/16 08:17 08:30 08:31 Temperature Pulse Rate 92 H 90 Respiratory 15 30 H Rate Blood Pressure 105/54 105/54 O2 Sat by Pulse 100 100 100 Oximetry 11/05/16 11/05/16 11/05/16 08:45 09:01 09:15 Temperature Pulse Rate 88 91 H 92 H Respiratory 18 27 H 23 Rate Blood Pressure 103/50 108/53 112/55 O2 Sat by Pulse 100 100 100 Oximetry 11/05/16 11/05/16 11/05/16 09:30 09:39 09:45 Temperature Pulse Rate 94 H 96 H 89 Respiratory 31 H 29 H Rate Blood Pressure 109/58 109/58 119/56 O2 Sat by Pulse 100 Oximetry 11/05/16 11/05/16 11/05/16 10:00 10:15 10:30 Temperature Pulse Rate 93 H 90 89 Respiratory 25 H 25 H 20 Rate Blood Pressure 118/62 111/56 105/57 O2 Sat by Pulse 100 100 100 Oximetry 11/05/16 11/05/16 11/05/16 10:45 11:01 11:05 Temperature Pulse Rate 89 86 82 Respiratory 20 20 28 H Rate Blood Pressure 96/57 100/56 100/56 O2 Sat by Pulse 100 100 100 Oximetry 11/05/16 11/05/16 11/05/16 11:15 11:19 11:30 Temperature Pulse Rate 79 84 80 Respiratory 34 H 15 27 H Rate Blood Pressure 106/52 106/52 103/50 O2 Sat by Pulse 100 100 100 Oximetry 11/05/16 11/05/16 11/05/16 11:45 12:00 12:15 Temperature 97.9 F Pulse Rate 82 81 83 Respiratory 26 H 26 H 27 H Rate Blood Pressure 100/52 99/50 91/54 O2 Sat by Pulse 100 100 100 Oximetry 11/05/16 11/05/16 11/05/16 12:30 12:45 12:49 Temperature Pulse Rate 77 79 84 Respiratory 28 H 27 H 26 H Rate Blood Pressure 99/49 105/53 105/53 O2 Sat by Pulse 100 100 100 Oximetry 11/05/16 11/05/16 11/05/16 13:00 13:15 13:30 Temperature Pulse Rate 81 82 79 Respiratory 25 H 28 H 28 H Rate Blood Pressure 99/52 105/55 106/54 O2 Sat by Pulse 100 100 100 Oximetry 11/05/16 13:45 Temperature Pulse Rate 79 Respiratory 27 H Rate Blood Pressure 109/55 O2 Sat by Pulse 100 Oximetry - General Appearance General appearance: well-developed (no acute distress) EENT: ATNC Neck: no JVD Respiratory: Present: Other (Lung sounds decreased bilaterally, unlabored) Cardiology: regular, S1S2, other (ACCESS: Right Perm Catheter intact) Gastrointestinal: normoactive bowel sounds, no tenderness, no distended Integumentary: warm and dry (no rashes noted in inspected areas) Neurologic: alert and oriented x3 Musculoskeletal: other (no edema to both lower extremities) Psychiatric: mood/affect appropriate, cooperative - Lab 11/05/16 04:08 11/05/16 04:08 Most recent lab results Calcium 7.9 mg/dL (8.4-10.2) L 11/05/16 04:08 Phosphorus 3.9 mg/dL (2.5-4.5) 11/05/16 04:08 Magnesium 2.4 mg/dL (1.7-2.3) H 11/04/16 11:06
[2016-11-05] MEDS ORDERED: NACL 0.9% 1000 ML 100 ML IV PRN (14:29)
[2016-11-05 17:40] LABS: Hematocrit 23.7 % (30.3-42.9); Hemoglobin 7.8 gm/dl (10.1-14.3)
[2016-11-05 18:05] LABS: Total Iron Binding Capacity 207.2 mcg/dL (250-450)
[2016-11-05] MEDS: HYDROMET PO PRN (22:25)
[2016-11-06] MEDS: HYDROMET PO PRN (05:25)
[2016-11-06 06:22] LABS: Hematocrit 20.6 % (30.3-42.9); Hemoglobin 6.8 gm/dl (10.1-14.3); Mean Corpuscular HGB Conc 33 % (30-34); Mean Corpuscular Hemoglobin 29 pg (28-32); Mean Corpuscular Volume 89 fl (79-97); Platelet Count 162 K/mm3 (140-440); Red Blood Count 2.32 M/mm3 (3.65-5.03); Red Cell Distribution Width 16.4 % (13.2-15.2); White Blood Count 3.7 K/mm3 (4.5-11.0)
[2016-11-06 06:38] LABS: BUN/Creatinine Ratio 6.06; Calcium 8.2 mg/dL (8.4-10.2); Chloride 95.5 mmol/L (98-107); Potassium 5.7 mmol/L (3.6-5.0)
--- NOTE | 2016-11-06 09:09 | Progress Note ---
Assessment and Plan (1) ESRD (end stage renal disease) on dialysis Current Visit: No Status: Acute Plan to address problem: HD today for clearance and volume removal Assess need for HD on daily basis Renally dose medications Renal diet Obtain daily weight Strict intake and output (2) Anemia in chronic kidney disease (CKD) Current Visit: No Status: Chronic Plan to address problem: 1 unit PRBC transfusion with HD Epogen with HD (3) Hyperkalemia Current Visit: No Status: Acute Plan to address problem: HD today (4) Hypertensive CKD, ESRD on dialysis Current Visit: No Status: Chronic Plan to address problem: Currently on Coreg 12.5 mg orally twice a day Continue to monitor blood pressure closely Subjective Date of service: 11/06/16 Principal diagnosis: ESRD Interval history: remains to feel weak Objective - Vital Signs Vital signs: Vital Signs - 12hr 11/05/16 11/05/16 11/06/16 21:22 23:22 02:08 Temperature 98.0 F 97.6 F Pulse Rate 88 Pulse Rate [ 95 H 92 H Right Radial] Respiratory 20 20 Rate Blood Pressure 147/67 117/58 O2 Sat by Pulse 95 94 Oximetry 11/06/16 11/06/16 06:48 07:53 Temperature 98.7 F 97.8 F Pulse Rate Pulse Rate [ 92 H 88 Right Radial] Respiratory 20 20 Rate Blood Pressure 132/62 134/63 O2 Sat by Pulse 95 95 Oximetry - General Appearance General appearance: well-developed, well-nourished, appears stated age EENT: ATNC, PERRL, mucous membranes moist Neck: no JVD, no carotid bruit Respiratory: Present: Clear to Ascultation. Absent: Rales, Ronchi, Wheezes Cardiology: regular, S1S2 Gastrointestinal: normoactive bowel sounds, no tenderness, no distended, no hepatomegaly, no splenomegaly Integumentary: no rash, warm and dry Neurologic: no focal deficit, no asterixis, alert and oriented x3 Musculoskeletal: other (no edema in BLE) Psychiatric: mood/affect appropriate, cooperative - Lab 11/06/16 05:08 11/06/16 05:08 Most recent lab results Calcium 8.2 mg/dL (8.4-10.2) L 11/06/16 05:08 Phosphorus 3.9 mg/dL (2.5-4.5) 11/05/16 04:08 Magnesium 2.4 mg/dL (1.7-2.3) H 11/04/16 11:06
[2016-11-06] MEDS ORDERED: HEPARIN/NS 5000 UNIT/500ML(CATH LAB) 500 ML IR ONE (09:43)
[2016-11-06] MEDS ORDERED: ANCEF/STERILE WATER 2 GM/20 ML 20 ML IV ONE (09:44)
[2016-11-06] MEDS ORDERED: NACL 0.9% 250ML 250 ML ONE (09:58)
[2016-11-06] MEDS: SUBLIMAZE ONE ×2 (10:20→10:26)
[2016-11-06] MEDS: VERSED ONE ×2 (10:20→10:26)
[2016-11-06] MEDS: XYLOCAINE 1%/ EPI 1:100,000 INFILTRATI ONE ×2 (10:22→10:26)
[2016-11-06] MEDS: HEPARIN 10,000 UNITS/10 ML ONE ×2 (10:38→10:39)
--- NOTE | 2016-11-06 10:44 | Operative Report ---
Operative Report Operative Report: EXAM: 1. Fluoroscopic guided cannulation of the prior tract in the right chest into the central venous circulation 2. Selection of the IVC with venography 3. Selection of the SVC with venography 4. Fluoroscopic-guided placement of a right internal jugular tunneled cuffed hemodialysis catheter. DATE: 11/06/16 INDICATION: End-stage renal disease in a patient without dialysis access whose PermCath fell out yesterday. This has happened multiple times in the past. I had a long discussion with the patient about the risk of infection if she continues to pull out her catheter. The preexisting stitch was cut. MEDICATIONS: Please see nursing report for full details. DEVICES: 23 cm tip to cuff 15 Fr dual lumen hemodialysis catheter DIRECTOR STRATEGIC ACCOUNT MANAGEMENT: MONICA HAGEN MD CONTRAST: None PROCEDURE: The risks, benefits, and alternatives were discussed and informed consent was obtained. The patient was transported to the angiography suite in satisfactory/ stable condition and was transported onto the angiography table. The right chest was prepped and draped in a sterile fashion. I cleaned the prior tract site on the right chest with ChloraPrep. I passed a 0.035 inch stiff angled Glidewire through the existing tract, and it passed into the central venous circulation, and into the right brachiocephalic vein, SVC, and into the inferior vena cava. The area was anesthetized with lidocaine. I passed an angled catheter over the wire and into the inferior vena cava. Wire was removed. Catheter was used to select the suprarenal IVC. Digital subtraction angiography was performed demonstrating patency of the IVC. Catheter was retracted into the SVC. Digital subtraction angiography was performed of the SVC demonstrating patency of the SVC. Wire was passed back into the inferior vena cava and the catheter was removed. Over the 0.035 inch wire, serial dilatation was performed. A 7 Guatemalan 23 cm sheath was advanced over the wire and digital subtraction angiography was performed confirming SVC patency. A second stiff angled Glidewire was passed into the inferior vena cava through the sheath. Sheath was removed. ChloraPrep was again used at the chest insertion site. The permcath was advanced over the wires and positioned centrally under fluoroscopic guidance. The stiffener and wires were removed. The catheter tip is in the right atrium. Excellent flow was obtained through the dialysis catheter with 20 mL syringes. 2-0 Ethilon suture was used to secure the catheter at the dermatotomy. The catheter was charged with heparin 1000 units/mL of space. The patient was transferred from the angiography suite back to the floor in stable condition. FINDINGS: Please see procedure note above. IMPRESSION: 1. Successful fluoroscopically guided placement of a right internal jugular tunneled cuffed hemodialysis catheter.
--- NOTE | 2016-11-06 11:28 | Progress Note ---
Assessment and Plan - Patient Problems (1) Volume overload Current Visit: Yes Status: Acute Qualifiers: Hypervolemia type: other Qualified Code(s): E87.79 - Other fluid overload Plan to address problem: Volume overload was likely due to noncompliance with hemodialysis. Continue hemodialysis and optimal control of hypertension. (2) Aortic regurgitation Current Visit: Yes Status: Acute Plan to address problem: This is a new finding on the echocardiogram on this presentation, it will be further investigated with a transesophageal echocardiogram in the morning. Subjective Date of service: 11/06/16 Principal diagnosis: ESRD Interval history: 51-year-old woman on hemodialysis who presented with shortness of breath and fluid overload after several missed dialysis sessions. She had a cardiac catheterization just last month, which reported angiographically normal coronary arteries and well preserved left ventricular systolic function, ejection fraction 55%. On this presentation, echo reported left ventricular ejection fraction is well- preserved at 45%, BUT a new finding of significant aortic regurgitation. VY is planned for further assessment of the valve incompetence. She looks and feels better, asymptomatic after resumption of routine dialysis. Objective Vital Signs Temp Pulse Pulse Resp BP Pulse Ox 11/06/16 11:18 98.2 F 20 125/59 98 11/06/16 07:53 97.8 F 88 20 134/63 95 11/06/16 06:48 98.7 F 92 H 20 132/62 95 11/06/16 02:08 97.6 F 92 H 20 117/58 94 11/05/16 23:22 88 11/05/16 21:22 98.0 F 95 H 20 147/67 95 11/05/16 16:33 98.1 F 11/05/16 15:00 79 17 112/54 100 11/05/16 14:45 88 17 109/52 100 11/05/16 14:30 81 28 H 112/55 100 11/05/16 14:15 78 15 94/56 94 11/05/16 14:00 81 32 H 97/55 100 11/05/16 13:49 82 34 H 109/55 100 11/05/16 13:45 79 27 H 109/55 100 11/05/16 13:30 79 28 H 106/54 100 11/05/16 13:15 82 28 H 105/55 100 11/05/16 13:00 81 25 H 99/52 100 17 12:49 84 26 H 105/53 11/05/16 12:45 79 27 H 105/53 11/05/16 12:30 77 28 H 99/49 11/05/16 12:15 83 27 H 91/54 11/05/16 12:00 97.9 F 81 26 H 99/50 11/05/16 11:45 82 26 H 100/52 11/05/16 11:30 80 27 H 103/50 100 - Physical Examination General: No Apparent Distress HEENT: Positive: PERRL Neck: Positive: neck supple Cardiac: Positive: Reg Rate and Rhythm Lungs: Positive: Decreased Breath Sounds Neuro: Positive: Grossly Intact Abdomen: Positive: Soft Skin: Positive: Clear Extremities: Absent: edema - Labs and Meds CBC 11/05/16 11/06/16 Range/Units 17:14 05:08 WBC 3.7 L (4.5-11.0) K/mm3 RBC 2.32 L (3.65-5.03) M/mm3 Hgb 7.8 L 6.8 L (10.1-14.3) gm/dl Hct 23.7 L 20.6 L (30.3-42.9) % Plt Count 162 (140-440) K/mm3 Comprehensive Metabolic Panel 11/06/16 Range/Units 05:08 Sodium 138 (137-145) mmol/L Potassium 5.7 H D (3.6-5.0) mmol/L Chloride 95.5 L (98-107) mmol/L Carbon Dioxide 26 (22-30) mmol/L BUN 57 H (7-17) mg/dL Creatinine 9.4 H (0.7-1.2) mg/dL Glucose 78 (65-100) mg/dL Calcium 8.2 L (8.4-10.2) mg/dL - Imaging and Cardiology EKG: image reviewed (sinus tachycardia, personal review)
[2016-11-06] MEDS: COREG PO SCH ×2 (11:45→22:05)
[2016-11-06] MEDS: CALCIUM CARBONATE PO SCH (11:47)
[2016-11-06] MEDS: BABY ASPIRIN PO SCH (12:48)
--- NOTE | 2016-11-06 15:00 | Event Note ---
Date: 11/06/16 51 year old female with ESRD and noncompliance with HD. Replaced permcath today after she mistakenly removed the catheter yesterday, which has occurred previously. She has not followed up for die maker access creation. She has permcath dislodgment intermittently. She is not compliant with going to HD. 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
--- NOTE | 2016-11-06 20:01 | Progress Note ---
Assessment and Plan Assessment and plan: Patient is a 51-year-old female with history of end-stage renal disease, lupus, hypertension, anemia, cardiomyopathy although recent cardiac catheterization showed normal coronary arteries who presents to the ER following to missed sessions of dialysis and was acutely shortness of breath, with intermittent complaint of reproducible chest pain which she rates at 3/10 in intensity with no exacerbating factors. In the ER she was noted to be in florid pulmonary edema with severe hyperkalemia requiring emergent dialysis. She is very weak and lethargic also with the heart rate in the 120s on blood pressure in the 180s systolic unable to provide much information due to BiPAP significant shortness of breath. Patient was transferred to the ICU on admission was treated with nitro drip for better control of blood pressure also had emergent dialysis. Transfer out of the ICU today continues to be stable hemoglobin did drop to 6.9 this reji to 1 units packed red blood cells with dialysis today. * Acute hypoxic respiratory failure * esrd * fluid overload * Severe aortic valve on echocardiogram * pulmonary vascular congestion * hyperkalemia * Acute blood loss anemia- hgb 6.9 today * atypical chest pain * Tachycardia * hypertensive urgency Plan * Continue dialysis per head of cytogenetics * VY in a.m. to evaluate aortic valve * Discussed with senior design engineer Dr. Moyer, * Transfuse 1 Unit PRBC * Resume medications * DVT/GI prophylaxis History Interval history: Patient seen and examined this morning in no acute distress, no further chest pain and transferred out of the ICU. Denies any, nausea, vomiting, diarrhea No fever noted blood pressure controlled No adverse events reported to me by nursing staff Hospitalist Physical - Physical exam Narrative exam: VITAL SIGNS: Reviewed. GENERAL: The patient appeared well nourished significantly dyspneic only able to answer yes or no on a BiPAP. Vital signs as documented. HEAD: No signs of head trauma. EYES: Pupils are equal. Extraocular motions intact. EARS: Hearing grossly intact. MOUTH: Oropharynx is normal. NECK: No adenopathy, no JVD. CHEST: Chest with Crohn's breath sounds bilaterally. Increased accessory muscle use No wheezes, rales, or rhonchi. CARDIAC: Tachycardia. S1 and S2, diastolic murmurs, gallops, or rubs. VASCULAR: No Edema. Peripheral pulses normal and equal in all extremities. ABDOMEN: Soft, without detectable tenderness. No sign of distention. No rebound or guarding, and no masses palpated. Bowel Sounds normal. MUSCULOSKELETAL: Good range of motion of all major joints. Extremities without clubbing, cyanosis or edema. NEUROLOGIC EXAM: Alert and oriented x 3. No focal sensory or strength deficits. Speech limited and in burst. Follows commands. PSYCHIATRIC: Mood normal. SKIN: Appropriate wrinkles blemishes. - Constitutional Vitals: Temp Pulse Resp BP Pulse Ox 98.7 F 94 H 20 133/62 98 11/06/16 15:10 11/06/16 19:06 11/06/16 15:10 11/06/16 19:06 11/06/16 11:18 General appearance: Present: no acute distress Results - Labs CBC & Chem 7: 11/06/16 05:08 11/06/16 05:08 Labs: Laboratory Last Values WBC 3.7 K/mm3 (4.5-11.0) L 11/06/16 05:08 RBC 2.32 M/mm3 (3.65-5.03) L 11/06/16 05:08 Hgb 6.8 gm/dl (10.1-14.3) L 11/06/16 05:08 Hct 20.6 % (30.3-42.9) L 11/06/16 05:08 MCV 89 fl (79-97) 11/06/16 05:08 MCH 29 pg (28-32) 11/06/16 05:08 MCHC 33 % (30-34) 11/06/16 05:08 RDW 16.4 % (13.2-15.2) H 11/06/16 05:08 Plt Count 162 K/mm3 (140-440) 11/06/16 05:08 Lymph % (Auto) 28.8 % (13.4-35.0) 11/05/16 04:08 Mil[place] % (Auto) 6.0 % (0.0-7.3) 11/05/16 04:08 Eos % (Auto) 0.0 % (0.0-4.3) 11/05/16 04:08 Baso % (Auto) 0.6 % (0.0-1.8) 11/05/16 04:08 Lymph # 1.0 K/mm3 (1.2-5.4) L 11/05/16 04:08 [place] # 0.2 K/mm3 (0.0-0.8) 11/05/16 04:08 Eos # 0.0 K/mm3 (0.0-0.4) 11/05/16 04:08 Baso # 0.0 K/mm3 (0.0-0.1) 11/05/16 04:08 Seg Neutrophils % 64.6 % (40.0-70.0) 11/05/16 04:08 Seg Neutrophils # 2.2 K/mm3 (1.8-7.7) 11/05/16 04:08 Sodium 138 mmol/L (137-145) 11/06/16 05:08 Potassium 5.7 mmol/L (3.6-5.0) H D 11/06/16 05:08 Chloride 95.5 mmol/L (98-107) L 11/06/16 05:08 Carbon Dioxide 26 mmol/L (22-30) 11/06/16 05:08 Anion Gap 22 mmol/L 11/06/16 05:08 BUN 57 mg/dL (7-17) H 11/06/16 05:08 Creatinine 9.4 mg/dL (0.7-1.2) H 11/06/16 05:08 Estimated GFR 5 ml/min 11/06/16 05:08 BUN/Creatinine Ratio 6.06 % 11/06/16 05:08 Glucose 78 mg/dL (65-100) 11/06/16 05:08 Calcium 8.2 mg/dL (8.4-10.2) L 11/06/16 05:08 Phosphorus 3.9 mg/dL (2.5-4.5) 11/05/16 04:08 Magnesium 2.4 mg/dL (1.7-2.3) H 11/04/16 11:06 Iron 33 ug/dL (37-170) L 11/05/16 17:21 TIBC 207.20 mcg/dL (250-450) L 11/05/16 17:21 Transferrin 148 mg/dl (192-382) L 11/05/16 17:21 Ferritin 7085.0 ng/mL (13.0-400.0) H 11/05/16 17:19 Total Bilirubin 0.3 mg/dL (0.1-1.2) 11/05/16 04:08 AST 33 units/L (5-40) 11/05/16 04:08 ALT 22 units/L (7-56) 11/05/16 04:08 Alkaline Phosphatase 70 units/L (35-129) 11/05/16 04:08 Total Creatine Kinase 55 units/L (30-135) 11/05/16 01:11 CK-MB (CK-2) 1.7 ng/mL (0.0-4.0) 11/05/16 01:11 CK-MB (CK-2) Rel Index 3.0 (0-4) 11/05/16 01:11 Troponin T 0.568 ng/mL (0.00-0.029) H* D 11/05/16 01:11 Total Protein 6.8 g/dL (6.3-8.2) 11/05/16 04:08 Albumin 2.9 g/dL (3.9-5) L 11/05/16 04:08 Albumin/Globulin Ratio 0.7 % 11/05/16 04:08 Triglycerides 88 mg/dL (2-149) 11/04/16 11:06 Cholesterol 173 mg/dL (50-199) 11/04/16 11:06 LDL Cholesterol Direct 101 mg/dL (50-130) 11/04/16 11:06 HDL Cholesterol 55 mg/dL (40-59) 11/04/16 11:06 Cholesterol/HDL Ratio 3.14 % 11/04/16 11:06 Blood Type O POSITIVE 11/06/16 09:25 Antibody Screen Negative 11/06/16 09:25 Crossmatch See Detail 11/06/16 09:25
[2016-11-06] MEDS ORDERED: TYLENOL PO PRN (21:28)
[2016-11-07 05:48] LABS: Hematocrit 20.5 % (30.3-42.9); Hemoglobin 6.7 gm/dl (10.1-14.3); Mean Corpuscular HGB Conc 33 % (30-34); Mean Corpuscular Hemoglobin 29 pg (28-32); Mean Corpuscular Volume 89 fl (79-97); Platelet Count 176 K/mm3 (140-440); Red Cell Distribution Width 15.6 % (13.2-15.2); White Blood Count 2.9 K/mm3 (4.5-11.0)
[2016-11-07 06:04] LABS: BUN/Creatinine Ratio 4.44; Chloride 97.3 mmol/L (98-107); Potassium 4.7 mmol/L (3.6-5.0)
[2016-11-07] MEDS: HYDROMET PO PRN (06:15)
[2016-11-07] MEDS ORDERED: NACL 0.9% 500 ML 500 ML IV ONE (09:13)
[2016-11-07] MEDS: BABY ASPIRIN PO SCH ×2 (09:49→09:52)
[2016-11-07] MEDS: CALCIUM CARBONATE PO SCH (09:49)
[2016-11-07] MEDS: COREG PO SCH (09:50)
--- NOTE | 2016-11-07 10:50 | Progress Note ---
Assessment and Plan Non-specific troponin I abmormality Cath 09/12/2016 - normal coronaries Severe aortic regurgitation noted by echocardiogram this admission Patient was noted to have only trace to mild AR on an outpatient echo done No evidence of aortic root dissection on echocardiogram Cardiomyopathy, non-ischemic, LVEF 40-45% ESRD on HD SLE Anemia s/p PRBCs Negative stool occult blood Recommendations: Fluid management through HD Patient will be scheduled for VY as outpatient. Discussed extensively with patient Subjective Date of service: 11/07/16 Principal diagnosis: ESRD Interval history: Patient ate breakfast this morning therefore VY was cancelled Objective Vital Signs Temp Pulse Pulse Pulse Pulse Pulse Resp 11/07/16 10:37 99.1 F 84 18 11/07/16 09:50 11/07/16 09:01 11/07/16 08:51 77 20 11/07/16 06:31 99.0 F 77 20 11/07/16 05:27 90 11/07/16 01:45 98.3 F 84 20 11/07/16 00:27 84 18 11/06/16 22:05 90 11/06/16 21:30 11/06/16 21:22 102.4 F H 99 H 22 11/06/16 20:31 94 H 20 11/06/16 19:06 94 H 11/06/16 18:45 87 11/06/16 18:30 87 11/06/16 18:15 90 11/06/16 18:00 91 H 11/06/16 17:45 93 H 11/06/16 17:30 99 H 11/06/16 17:15 93 H 11/06/16 17:00 92 H 11/06/16 16:45 92 H 11/06/16 16:30 92 H 11/06/16 16:15 98 H 11/06/16 16:00 103 H 11/06/16 15:45 107 H 11/06/16 15:30 110 H 11/06/16 15:15 115 H 11/06/16 15:10 98.7 F 113 H 20 11/06/16 15:05 110 H 11/06/16 11:18 98.2 F 20 BP BP Pulse Ox 11/07/16 10:37 109/54 97 11/07/16 09:50 95/51 11/07/16 09:01 96 11/07/16 08:51 11/07/16 06:31 95/51 95 11/07/16 05:27 11/07/16 01:45 83/44 11/07/16 00:27 93 11/06/16 22:05 150/88 11/06/16 21:30 100 11/06/16 21:22 150/68 90 11/06/16 20:31 11/06/16 19:06 133/62 11/06/16 18:45 124/57 11/06/16 18:30 127/57 11/06/16 18:15 125/58 11/06/16 18:00 129/60 11/06/16 17:45 131/63 11/06/16 17:30 131/65 11/06/16 17:15 100/57 11/06/16 17:00 127/59 11/06/16 16:45 126/58 11/06/16 16:30 88/50 11/06/16 16:15 127/63 11/06/16 16:00 153/67 11/06/16 15:45 169/78 11/06/16 15:30 182/76 11/06/16 15:15 183/79 11/06/16 15:10 179/75 11/06/16 15:05 193/79 11/06/16 11:18 125/59 98 - Physical Examination General: No Apparent Distress HEENT: Positive: PERRL Neck: Positive: neck supple Cardiac: Positive: Reg Rate and Rhythm Lungs: Positive: Normal Exam Neuro: Positive: Grossly Intact Abdomen: Positive: Soft Skin: Positive: Clear Extremities: Absent: edema - Labs and Meds CBC 11/07/16 Range/Units 05:07 WBC 2.9 L (4.5-11.0) K/mm3 RBC 2.30 L (3.65-5.03) M/mm3 Hgb 6.7 L (10.1-14.3) gm/dl Hct 20.5 L (30.3-42.9) % Plt Count 176 (140-440) K/mm3 Comprehensive Metabolic Panel 11/07/16 Range/Units 05:07 Sodium 140 (137-145) mmol/L Potassium 4.7 (3.6-5.0) mmol/L Chloride 97.3 L (98-107) mmol/L Carbon Dioxide 27 (22-30) mmol/L BUN 28 H (7-17) mg/dL Creatinine 6.3 H (0.7-1.2) mg/dL Glucose 70 (65-100) mg/dL Calcium 8.0 L (8.4-10.2) mg/dL - Imaging and Cardiology EKG: image reviewed (sinus tachycardia, personal review)
--- NOTE | 2016-11-07 11:52 | Discharge Summary ---
Providers - Providers Date of Admission: 11/04/16 11:26 Date of discharge: 11/07/16 Attending physician: DANIEL HIGHTOWER 11/05/16 06:54 Consult to Physician [CONS] Routine Consulting Provider: WILDA CANTU Reason For Exam: chf Place consult to:: dr. cantu Notified:: yes Time called:: 07:55 11/05/16 17:29 Consult to Physician [CONS] Routine Consulting Provider: MONICA HAGEN Reason For Exam: dialysis access- VASCATH dislogded Place consult to:: Dr. Linares Notified:: Bernadette REED Phone number called:: Was contact made?: Yes If yes, spoke with:: Corby service Time called:: 18:06 Primary care physician: ETHYLBENZENE CRACKING SUPERVISOR Hospitalization Condition: Stable Hospital course: Patient is a 51-year-old female with history of end-stage renal disease, lupus, hypertension, anemia, cardiomyopathy although recent cardiac catheterization showed normal coronary arteries who presents to the ER following to missed sessions of dialysis and was acutely shortness of breath, with intermittent complaint of reproducible chest pain which she rates at 3/10 in intensity with no exacerbating factors. In the ER she was noted to be in florid pulmonary edema with severe hyperkalemia requiring emergent dialysis. She is very weak and lethargic also with the heart rate in the 120s on blood pressure in the 180s systolic unable to provide much information due to BiPAP significant shortness of breath. Patient was transferred to the ICU on admission was treated with nitro drip for better control of blood pressure also had emergent dialysis. Transfer out of the ICU today continues to be stable hemoglobin did drop to 6.9 this reji to 1 units packed red blood cells with dialysis today. * Acute hypoxic respiratory failure * esrd * fluid overload * Severe aortic valve on echocardiogram * pulmonary vascular congestion * hyperkalemia * Acute blood loss anemia- hgb 6.9 today * atypical chest pain * Tachycardia * hypertensive urgency Plan * Continue dialysis per flight superintendent * VY in a.m. to evaluate aortic valve--->pt refuses to have inpatient, she wants to go home now. * Discussed with hangar attendant Dr. Cantu---.outpatient VY * Transfuse 1 Unit PRBC---> pt refuses more blood, "i can get at dialysis". I told her not to drive until blood counts improve. I told her no strenous activities and warned about potential dangers which she minimizes. she is upset that her iron supplement were not started here. FOBT is negative for gi bleed * Resume medications * DVT/GI prophylaxis time of discharge 35 minutes Disposition: DISCHARGED TO HOME OR SELFCARE Core Measure Documentation - Palliative Care Palliative Care/ Comfort Measures: Not Applicable - Core Measures Any of the following diagnoses?: none - VTE Discharge Requirements Deep Vein Thrombosis/Pulmonary Embolism Present on Admission: No Has pt received <5 days of overlap therapy or INR<2.0: No Anticoagulant overlap therapy prescribed at discharge: No Contraindication No Overlap Therapy order at DC: Not Indicated Exam - Physical Exam Narrative exam: nad wdwn a/o x 3 rrr normal s1s2 lungs good air entry and breath sounds bilaterally neuro intact abd soft ntnd gbs - Constitutional Vitals: Temp Pulse Resp BP Pulse Ox 99.1 F 84 18 109/54 97 11/07/16 10:37 11/07/16 10:37 11/07/16 10:37 11/07/16 10:37 11/07/16 10:37 Plan Activity: no driving until cleared by PCP, other (no strenous activities until cleared by pcp and Cardiology) Diet: renal Follow up with: PRIMARY MD DELFINO [Primary Care Provider] - 3-5 Days WILDA CANTU MD [Staff Physician] - 7 Days
--- NOTE | 2016-11-07 15:38 | Progress Note ---
Assessment and Plan - Patient Problems (1) ESRD (end stage renal disease) on dialysis Current Visit: No Status: Acute Plan to address problem: Patient to be discharged home today Status post Hemodialysis yesterday for ultrafiltration and clearance No indication for HD today Hemodialysis tomorrow for UF and clearance Anemia- Hgb level was 6.7 today, patient refused blood transfusion Assess need for HD on daily basis Renally dose medications Renal diet Obtain daily weight Strict intake and output Renal plan discussed with Dr Hill Continue supportive therapy (2) Anemia in chronic kidney disease (CKD) Current Visit: No Status: Chronic Plan to address problem: Hemoglobin level was 6.7 today, patient refused blood transfusion Epogen dosing during HD for anemia management (3) Hypertensive CKD, ESRD on dialysis Current Visit: No Status: Chronic Plan to address problem: Currently on Coreg 12.5 mg orally twice a day Continue to monitor blood pressure closely Subjective Date of service: 11/07/16 Principal diagnosis: ESRD Interval history: Patient reports she is ready to go home, no family at bedside at time of my examination Objective - Vital Signs Vital signs: Vital Signs - 12hr 11/07/16 11/07/16 11/07/16 05:27 06:31 08:51 Temperature 99.0 F Pulse Rate 90 Pulse Rate [ 77 Left Radial] Pulse Rate [ 77 Right Dorsalis Pedis] Pulse Rate [ Right Radial] Respiratory 20 20 Rate Blood Pressure Blood Pressure 95/51 [Left Arm] Blood Pressure [Right Arm] O2 Sat by Pulse 95 Oximetry 11/07/16 11/07/16 11/07/16 09:01 09:50 10:37 Temperature 99.1 F Pulse Rate Pulse Rate [ 84 Left Radial] Pulse Rate [ Right Dorsalis Pedis] Pulse Rate [ Right Radial] Respiratory 18 Rate Blood Pressure 95/51 Blood Pressure 109/54 [Left Arm] Blood Pressure [Right Arm] O2 Sat by Pulse 96 97 Oximetry 11/07/16 14:16 Temperature 98.9 F Pulse Rate Pulse Rate [ Left Radial] Pulse Rate [ Right Dorsalis Pedis] Pulse Rate [ 79 Right Radial] Respiratory 18 Rate Blood Pressure Blood Pressure [Left Arm] Blood Pressure 131/60 [Right Arm] O2 Sat by Pulse 97 Oximetry - General Appearance General appearance: well-developed (no acute distress) EENT: ATNC Neck: no JVD Respiratory: Present: Clear to Ascultation. Absent: Ronchi Cardiology: regular, S1S2, other (ACCESS: Right Perm Catheter intact) Gastrointestinal: normoactive bowel sounds, no tenderness Integumentary: warm and dry Neurologic: alert and oriented x3 Musculoskeletal: other (no edema to both lower extremities) Psychiatric: mood/affect appropriate, cooperative - Lab 11/07/16 05:07 11/07/16 05:07 Most recent lab results Calcium 8.0 mg/dL (8.4-10.2) L 11/07/16 05:07 Phosphorus 3.9 mg/dL (2.5-4.5) 11/05/16 04:08 Magnesium 2.4 mg/dL (1.7-2.3) H 11/04/16 11:06
[2016-11-07 16:53] VITALS: BP 107/55
== END 2016-11-07 18:24 | disposition home or self-care (01) | DRG 286 ==
LOC: ED 10:28 → CC1 11:26 → 4A 11-05 17:05
PROVIDERS: ADMIT Internal Medicine; ATTEND Internal Medicine
PROC: 5A1D60Z (ICD-10-PCS; principal; 2016-11-04)
PROC: 02H633Z Insertion of Infusion Device into Right Atrium, Percutaneous Approach (ICD-10-PCS; 2016-11-06)
PROC: B2141ZZ Fluoroscopy of Right Heart using Low Osmolar Contrast (ICD-10-PCS; 2016-11-06)
PROC: B5191ZA Fluoroscopy of Inferior Vena Cava using Low Osmolar Contrast, Guidance (ICD-10-PCS; 2016-11-06)
PROC: B5181ZA Fluoroscopy of Superior Vena Cava using Low Osmolar Contrast, Guidance (ICD-10-PCS; 2016-11-06)
DX: I13.2 Hypertensive heart and chronic kidney disease with heart failure and with stage 5 chronic kidney disease, or end stage renal disease (principal); J96.01 Acute respiratory failure with hypoxia; N18.6 End stage renal disease; J81.1 Chronic pulmonary edema; D62 Acute posthemorrhagic anemia; T82.42XA Displacement of vascular dialysis catheter, initial encounter; I16.0 Hypertensive urgency; I42.8 Other cardiomyopathies; I50.9 Heart failure, unspecified; M19.90 Unspecified osteoarthritis, unspecified site; E11.22 Type 2 diabetes mellitus with diabetic chronic kidney disease; E87.5 Hyperkalemia; I35.1 Nonrheumatic aortic (valve) insufficiency; M32.9 Systemic lupus erythematosus, unspecified; D63.1 Anemia in chronic kidney disease; Z79.82 Long term (current) use of aspirin; Z79.899 Other long term (current) drug therapy; Z99.2 Dependence on renal dialysis; Z98.890 Other specified postprocedural states; Z91.15 Patient's noncompliance with renal dialysis
CPT/HCPCS: 36415; 36558; 71010; 77001; 80048; 80053; 80061; 82270; 82550; 82553; 82728; 83550; 83735; 84100; 84132; 84466; 84484; 85014; 85018; 85025; 85027; 86850; 86900; 86901; 86920; 93005; 93010; 93306; 94760; 96374; 96375; C1750; C1751; C1769; C1894; J0690; J0885; J1644; J2060; J2250; J3010; J7030; J7050; Q9967

== ENCOUNTER 2016-12-08 17:04 | Inpatient (IN) | payer MEDICARE ==
[2016-12-08 19:14] LABS: Basophils % (Auto) 1.1 % (0.0-1.8); Eosinophils % (Auto) 0.5 % (0.0-4.3); Hemoglobin 10.1 gm/dl (10.1-14.3); Mean Corpuscular HGB Conc 33 % (30-34); Mean Corpuscular Hemoglobin 29 pg (28-32); Mean Corpuscular Volume 90 fl (79-97); Platelet Count 251 K/mm3 (140-440); Red Blood Count 3.46 M/mm3 (3.65-5.03); White Blood Count 3.6 K/mm3 (4.5-11.0)
[2016-12-08 19:19] LABS: BUN/Creatinine Ratio 6.02; Calcium 9.5 mg/dL (8.4-10.2); Chloride 92.9 mmol/L (98-107); Potassium 4.9 mmol/L (3.6-5.0)
[2016-12-08 19:36] LABS: Red Cell Distribution Width 20.9 % (13.2-15.2)
--- NOTE | 2016-12-08 20:24 | Emergency Department Report ---
ED General Adult HPI - General Chief complaint: Dyspnea/Respdistress Stated complaint: DIFF BREATHING Time Seen by Provider: 12/08/16 20:21 Source: patient, RN notes reviewed, old records reviewed Mode of arrival: Ambulatory Limitations: Physical Limitation - History of Present Illness Initial comments: This is a 51-year-old female, previously unknown to me. Has a past medical history of end-stage renal disease, on dialysis Thursday, , Thursday. Last dialysis session was this past Thursday. She reports the preceding dialysis session () was not abnormal length and duration. Also has a past medical history of lupus, hypertension, anemia, cardiomyopathy. As per recent medical record documentation, had a normal cardiac catheterization for coronary artery anatomy. Has an ejection fraction of 45-50% . Has mild to moderately decreased global left ventricular systolic function. Patient presents to the ER complaining of shortness of breath. Shortness of breath was gradual. Started over the weekend. It is constant. It decreases with rest, and increases with physical exertion. Had a recent hospital admission with an echocardiogram demonstrated aortic valve abnormality; aortic regurgitation. Patient declined a transesophageal echocardiogram, and patient was supposed to have outpatient transesophageal echocardiogram. Patient reported to me that she went to follow up with her outpatient hydro pneumatic tester, Dr. Mccabe, but did not have a transesophageal echocardiogram performed secondary to not having anyone to drive her home after the procedure. -: Gradual Severity scale (0 -10): 0 Consistency: constant Improves with: rest Worsens with: movement Associated Symptoms: shortness of breath, weakness - Related Data Home Medications Medication Instructions Recorded Confirmed Last Taken Megestrol Acetate 40 ml PO DAILY 07/27/16 11/04/16 1 Day Ago Aspirin [Aspirin BABY CHEW TAB] 81 mg PO QDAY 09/30/16 11/04/16 1 Day Ago Calcium Carbonate [Calcium] 600 mg PO DAILY 09/30/16 11/04/16 1 Day Ago Carvedilol [Coreg] 12.5 mg PO BID 09/30/16 11/04/16 1 Day Ago Allergies Allergy/AdvReac Type Severity Reaction Status Date / Time No Known Allergies Allergy Verified 12/08/16 17:45 ED Review of Systems ROS: Stated complaint: DIFF BREATHING Other details as noted in HPI Constitutional: malaise. denies: fever Eyes: denies: vision change ENT: denies: epistaxis Respiratory: shortness of breath Cardiovascular: dyspnea on exertion Gastrointestinal: denies: abdominal pain Genitourinary: as per HPI Musculoskeletal: myalgia Skin: denies: lesions Neurological: weakness ED Past Medical Hx - Past Medical History Hx Hypertension: Yes Hx Congestive Heart Failure: Yes Hx Diabetes: No Hx Renal Disease: Yes (ESRD,HD TUES / THURS /SAT) Hx Arthritis: Yes Hx Asthma: No Hx COPD: No Additional medical history: LUPUS. PULMONARY EDEMA. ANEMIA - Surgical History Additional Surgical History: TONSILLECTOMY. ovarian cyst removed. perma cath right chest - Social History Smoking Status: Never Smoker Substance Use Type: None - Medications Home Medications: Home Medications Medication Instructions Recorded Confirmed Last Taken Type Megestrol Acetate 40 ml PO DAILY 07/27/16 11/04/16 1 Day Ago History Aspirin [Aspirin BABY CHEW TAB] 81 mg PO QDAY 09/30/16 11/04/16 1 Day Ago History Calcium Carbonate [Calcium] 600 mg PO DAILY 09/30/16 11/04/16 1 Day Ago History Carvedilol [Coreg] 12.5 mg PO BID 09/30/16 11/04/16 1 Day Ago History ED Physical Exam - General Limitations: Physical Limitation General appearance: alert, in no apparent distress - Head Head exam: Present: atraumatic, normocephalic - Eye Eye exam: Present: normal appearance, EOMI. Absent: nystagmus - ENT ENT exam: Present: normal exam, normal orophraynx, mucous membranes moist, normal external ear exam - Neck Neck exam: Present: normal inspection, full ROM. Absent: tenderness, meningismus - Respiratory Respiratory exam: Present: respiratory distress, rales, rhonchi, other (right- sided hemodialysis access catheter is noted. No redness, pus, streaking.) - Cardiovascular Cardiovascular Exam: Present: normal rhythm, tachycardia, normal heart sounds. Absent: bradycardia, systolic murmur, diastolic murmur, rubs, gallop - GI/Abdominal GI/Abdominal exam: Present: soft, normal bowel sounds. Absent: distended, tenderness, guarding, rebound, rigid, pulsatile mass - Extremities Exam Extremities exam: Present: normal inspection, full ROM, normal capillary refill. Absent: tenderness, pedal edema, joint swelling, calf tenderness - Back Exam Back exam: Present: normal inspection, full ROM. Absent: tenderness, CVA tenderness (R), CVA tenderness (L), muscle spasm, paraspinal tenderness, vertebral tenderness - Neurological Exam Neurological exam: Present: alert, oriented X3, other (Extraocular movements intact. Tongue midline. No facial droop. Facial sensation intact to light touch in the V1, V2, V3 distribution bilaterally. 5 and 5 strength in 4 extremities.. Sensation is intact to light touch in 4 extremities.). Absent: motor sensory deficit - Psychiatric Psychiatric exam: Present: normal affect, normal mood - Skin Skin exam: Present: warm, dry, intact, normal color. Absent: rash ED Course Vital Signs 12/08/16 12/08/16 17:38 19:41 Temperature 98.9 F 98.0 F Pulse Rate 106 H 100 H Respiratory 32 H 20 Rate Blood Pressure 175/88 Blood Pressure 182/81 [Left] O2 Sat by Pulse 95 98 Oximetry - Reevaluation(s) Reevaluation #1: 12/08/16 20:49 Differential diagnosis: End-stage renal disease, volume overload, aortic regurgitation, electrolyte imbalance Assessment and plan: 51-year-old female with recurrent episodes of 5 AM overload , known moderate to severe aortic regurgitation, appears to be volume overloaded at this time. On room air, she saturation 88%. With 2 L of nasal cannula oxygen, she corrects to 96%. Chest x-ray consistent with volume overload. Somewhat hypertensive. Case is discussed with her private neuroscience specialist, Dr. Chowdary, who is going to arrange urgent dialysis. He recommends 100 mg of Lasix IV. I will defer to the inpatient team to contact cardiology to coordinate possible transesophageal echocardiogram, as this aortic regurgitation issue has been present for over a month. The patient is speaking in full sentences, watching TV, is not tripoding, and does not require noninvasive ventilation at this time. Case is discussed with the hospital physician, Dr. Humphrey, who accepts the patient to her service. Reevaluation #2: 12/08/16 20:52 elevated troponin appreciated, is chronic, most likely secondary to underlying renal insufficiency. ED Medical Decision Making - Lab Data Result diagrams: 12/08/16 18:44 12/08/16 18:44 Vital Signs 12/08/16 12/08/16 17:38 19:41 Temperature 98.9 F 98.0 F Pulse Rate 106 H 100 H Respiratory 32 H 20 Rate Blood Pressure 175/88 Blood Pressure 182/81 [Left] O2 Sat by Pulse 95 98 Oximetry Lab Results 12/08/16 12/08/16 12/08/16 Range/Units 18:44 18:44 18:44 WBC 3.6 L (4.5-11.0) K/mm3 RBC 3.46 L (3.65-5.03) M/mm3 Hgb 10.1 (10.1-14.3) gm/dl Hct 31.0 (30.3-42.9) % MCV 90 (79-97) fl MCH 29 (28-32) pg MCHC 33 (30-34) % RDW 20.9 H (13.2-15.2) % Plt Count 251 (140-440) K/mm3 Lymph % (Auto) 17.6 (13.4-35.0) % [place] % (Auto) 9.3 H (0.0-7.3) % Eos % (Auto) 0.5 (0.0-4.3) % Baso % (Auto) 1.1 (0.0-1.8) % Lymph # 0.6 L (1.2-5.4) K/mm3 [place] # 0.3 (0.0-0.8) K/mm3 Eos # 0.0 (0.0-0.4) K/mm3 Baso # 0.0 (0.0-0.1) K/mm3 Seg Neutrophils % 71.5 H (40.0-70.0) % Seg Neutrophils # 2.6 (1.8-7.7) K/mm3 Sodium 139 (137-145) mmol/L Potassium 4.9 (3.6-5.0) mmol/L Chloride 92.9 L (98-107) mmol/L Carbon Dioxide 29 (22-30) mmol/L Anion Gap 22 mmol/L BUN 50 H (7-17) mg/dL Creatinine 8.3 H (0.7-1.2) mg/dL Estimated GFR 6 ml/min BUN/Creatinine Ratio 6.02 % Glucose 161 H (65-100) mg/dL Calcium 9.5 (8.4-10.2) mg/dL Troponin T 0.111 H* (0.00-0.029) ng/mL NT-Pro-B Natriuret Pep > 07284 H (0-900) pg/mL Triglycerides 101 (2-149) mg/dL Cholesterol 155 (50-199) mg/dL LDL Cholesterol Direct 70 (50-130) mg/dL HDL Cholesterol 65 H (40-59) mg/dL Cholesterol/HDL Ratio 2.38 % - EKG Data 12/08/16 20:51 Sinus tachycardia, 104 bpm, prolonged QTC at 460 ms, nonspecific interventricular conduction delay, poor R-wave progression, left ventricular hypertrophy, nocturia consistent with STEMI, appears unchanged when compared to prior EKG from 2017 - Radiology Data Radiology results: report reviewed, image reviewed interpreted by me: X-ray chest demonstrates congestive heart failure, pulmonary vascular congestion , right-sided hemodialysis access catheter noted, not consistent with pneumonia. Critical care attestation.: If time is entered above; I have spent that time in minutes in the direct care of this critically ill patient, excluding procedure time. ED Disposition Clinical Impression: Pulmonary edema, Volume overload, End stage renal disease Disposition: OP ADMITTED IP TO THIS HOSP Is pt being admited?: Yes Condition: Good Instructions: Pulmonary Edema (ED) Referrals: PRIMARY CARE, [Primary Care Provider] - 3-5 Days
[2016-12-08] MEDS ORDERED: APRESOLINE IV ONE (20:38)
[2016-12-08] MEDS ORDERED: LASIX 100 MG in NACL 0.9% 50 ML IV ONE (20:38)
--- NOTE | 2016-12-08 20:41 | Admit Criteria Form ---
Admission Criteria Documentation: RENAL FAILURE, CHRONIC Clinical Indications for Admission to Inpatient Care (Place 'X' for any and all applicable criteria): Admission is indicated for ANY ONE of the following (1)(2)(3)(4)(5): [ xX]I. Inpatient admission required rather than observation care (Use Renal Failure, Chronic: Observation Care Criteria as appropriate) because of ANY ONE of the following: [ X]a) Volume overload or uremic symptoms (eg, clinically significant pulmonary edema, hypertension, pericarditis, acidosis) too severe for, or not responsive (eg, for over 24 hours) to emergency department or observation care dialysis or treatment regimen (11) [ ]b) Hemodynamic instability that is severe or persistent [ X]c) Respiratory distress that is severe or persistent (11) [ ]d) Clinically significant electrolyte abnormality that requires inpatient care (eg,hyperkalemia with severe ECG findings)[B] [X ]e) Supplement O2 or respiratory therapy for over 24hrs that is performable only in acute inpatient setting [ ]f) Continuous IV infusion of anticoagulation, platelet inhibitor, vasoactive, or Antiarrhythmic medication (15), [ ]g) Pulmonary artery catheter monitoring [ ]h) Temporary pacemaker placement [ ]i) Emergent pericardiocentesis [ ]j) Other condition, treatment or monitoring requiring inpatient admission [ ]II. Unexplained syncope [A] [ ]III. Recurrent seizures [ ]IV. Severe infections not treatable in outpatient setting (eg, peritonitis)(9 ) [ ]V. Cardiac arrhythmias of immediate concern [ ]. Encephalopathy [ ]VII.Bleeding abnormalities (eg, platelet dysfunction) with active (eg, gastrointestinal) bleeding Extended stay beyond goal length of stay may be needed for (3)(4)(35)(36): [ ]a) Continuing uremic complications [ ]b) Comorbidities or complications The original [employer] content created by [employer] has been revised. The portions of the content which have been revised are identified through the use of italic text or in bold, and [facility] [employer] has neither reviewed nor approved the modified material. All other unmodified content is copyright [employer] Please see references footnoted in the original [facility] [facility] edition 2016 Admission Criteria Met: Yes
--- NOTE | 2016-12-08 21:05 | XRay Report ---
FINAL REPORT PROCEDURE: XR CHEST ROUTINE 2V TECHNIQUE: PA and lateral chest radiographs were obtained. CPT 37447 HISTORY: Shortness of breath COMPARISON: No prior studies are available for comparison. FINDINGS: Heart: Prominent cardiac silhouette. Mediastinum/Vessels: Prominent central vessels. Lungs/Pleural space: Patchy left lower lobe opacity and probable left pleural effusion. No pneumothorax. Bony thorax: No acute osseous abnormality. Other: Large-bore right central venous catheter tip is in the right atrium IMPRESSION: Findings compatible with pulmonary edema and possible congestive heart failure.
[2016-12-08 21:38] LABS: INR 0.96 (0.87-1.13)
[2016-12-08] MEDS ORDERED: APRESOLINE IV PRN (23:06)
[2016-12-08] MEDS ORDERED: DULCOLAX PR PRN (23:07)
[2016-12-08] MEDS ORDERED: TYLENOL PO PRN (23:07)
[2016-12-08] MEDS ORDERED: ZOFRAN IV PRN (23:07)
--- NOTE | 2016-12-08 23:11 | History and Physical Report ---
History of Present Illness Date of examination: 12/08/16 History of present illness: 51-year-old woman with a history of hypertension, end-stage renal disease on dialysis, CHF, severe aortic regurgitation, Lupus,comes to the emergency room with complaints of shortness of breath started this morning. The patient did not miss dialysis, states that she is compliant with fluid restriction. She denies any chest pain Patient denies chest pain, palpitation, cough, abdominal pain, hematochezia, dysuria, frequency, focal weakness, dysarthria, fever chills, polydipsia polyuria, hot or cold intolerance, easy bruisability, or rash or bleeding from mucosal membrane, rhinorrhea, epistaxis, earache, tinnitus, blurry vision, eye discharge, anxiety, depression. Other review of systems negative PAST SURGICAL HISTORY: Tonsillectomy SOCIAL HISTORY: Denies alcohol, tobacco, drugs FAMILY HISTORY: Hypertension Medications and Allergies Allergies Allergy/AdvReac Type Severity Reaction Status Date / Time No Known Allergies Allergy Verified 12/08/16 17:45 Home Medications Medication Instructions Recorded Confirmed Last Taken Type Megestrol Acetate 40 ml PO DAILY 07/27/16 11/04/16 1 Day Ago History Aspirin [Aspirin BABY CHEW TAB] 81 mg PO QDAY 09/30/16 11/04/16 1 Day Ago History Calcium Carbonate [Calcium] 600 mg PO DAILY 09/30/16 11/04/16 1 Day Ago History Carvedilol [Coreg] 12.5 mg PO BID 09/30/16 11/04/16 1 Day Ago History Active Meds: Active Medications Aspirin (Baby Aspirin) 81 mg PO QDAY PASCUAL Carvedilol (Coreg) 12.5 mg PO BID PASCUAL Hydralazine HCl (Apresoline) 5 mg IV Q6HR PRN PRN Reason: Hypertension Megestrol Acetate (Megace) mg PO DAILY PASCUAL Miscellaneous Medication (Calcium Carbonate [Calcium]) 600 mg PO DAILY PASCUAL Exam - Physical Exam Narrative exam: Gen. appearance: Patient lying in bed, no apparent distress HEENT: Normocephalic, atraumatic, pupils equally round and reactive to light, extraocular movement intact, and no sclericterus,. No JVD or thyromegaly or nodule,neck supple, no carotid bruit ,mucous membranes moist, no exudate or erythema Heart: S1, S2, regular rate and rhythm Lungs: Crackles bilaterally, breathing comfortable Abdomen: Positive bowel sounds, nontender, nondistended, no organomegaly Extremity: No edema, cyanosis, clubbing Skin: No rash, nodules, warm, dry Neuro: Oriented 3, cranial nerves II-12 intact, speech is fluent, motor and sensory intact - Constitutional Vitals: Temp Pulse Resp BP Pulse Ox 98.0 F 102 H 20 176/73 98 12/08/16 19:41 12/08/16 22:16 12/08/16 19:41 12/08/16 22:16 12/08/16 19:41 Results - Labs CBC & Chem 7: 12/08/16 18:44 12/08/16 18:44 Labs: Abnormal lab results 12/08/16 12/08/16 12/08/16 Range/Units 18:44 18:44 18:44 WBC 3.6 L (4.5-11.0) K/mm3 RBC 3.46 L (3.65-5.03) M/mm3 RDW 20.9 H (13.2-15.2) % [place] % (Auto) 9.3 H (0.0-7.3) % Lymph # 0.6 L (1.2-5.4) K/mm3 Seg Neutrophils % 71.5 H (40.0-70.0) % Chloride 92.9 L (98-107) mmol/L BUN 50 H (7-17) mg/dL Creatinine 8.3 H (0.7-1.2) mg/dL Glucose 161 H (65-100) mg/dL Troponin T 0.111 H* (0.00-0.029) ng/mL NT-Pro-B Natriuret Pep > 41882 H (0-900) pg/mL HDL Cholesterol 65 H (40-59) mg/dL - Imaging and Cardiology EKG: image reviewed Chest x-ray: report reviewed Assessment and Plan Shortness of breath secondary secondary to fluid overload Severe aortic regurg Chronic elevated troponin Hypertension end-stage renal disease on dialysis Lupus Admits medicine Consult renal for dialysis Check cardiac enzymes, had echo on the last admission in November Continue appropriate outpatient medications, start DVT prophylaxis
[2016-12-09 02:15] LABS: Creatine Kinase MB 1.3 ng/mL (0.0-4.0)
[2016-12-09 06:25] LABS: Basophils % (Auto) 1.2 % (0.0-1.8); Eosinophils % (Auto) 0.7 % (0.0-4.3); Hematocrit 28.8 % (30.3-42.9); Hemoglobin 9.3 gm/dl (10.1-14.3); Mean Corpuscular HGB Conc 32 % (30-34); Mean Corpuscular Hemoglobin 29 pg (28-32); Mean Corpuscular Volume 90 fl (79-97); Platelet Count 231 K/mm3 (140-440); Red Blood Count 3.21 M/mm3 (3.65-5.03); White Blood Count 3.2 K/mm3 (4.5-11.0)
[2016-12-09 06:30] LABS: Red Cell Distribution Width 20.3 % (13.2-15.2)
[2016-12-09 06:49] LABS: BUN/Creatinine Ratio 5.89; Calcium 9.2 mg/dL (8.4-10.2); Chloride 94.9 mmol/L (98-107); Potassium 5.2 mmol/L (3.6-5.0)
[2016-12-09 06:54] LABS: Creatine Kinase MB 1.5 ng/mL (0.0-4.0)
[2016-12-09] MEDS: PROVENTIL IH PRN ×2 (07:19→22:14)
[2016-12-09] MEDS ORDERED: MEGACE PO SCH (10:00)
[2016-12-09] MEDS ORDERED: NON-FORMULARY (Calcium Carbonate [Calcium] 600 MG) PO SCH (10:00)
--- NOTE | 2016-12-09 10:12 | Consultation ---
History of Present Illness - Reason for Consult Consult date: 12/09/16 end stage renal disease - History of Present Illness patient with h/o ESRD on HD every TTS secondary to HTN nephrosclerosis and SLE, came to the ER due to worsening of SOB, patient was admitted in the past multiple times for the same reason, she is well know to be noncompliant with dialysis therapy but according to her she did not miss her tx on Thursday, when seen she started to feel better but remains SOB. Past History Past Medical History: ESRD, hypertension Medications and Allergies Allergies Allergy/AdvReac Type Severity Reaction Status Date / Time No Known Allergies Allergy Verified 12/08/16 17:45 Home Medications Medication Instructions Recorded Confirmed Last Taken Type Megestrol Acetate 40 ml PO DAILY 07/27/16 12/08/16 1 Day Ago History Calcium Carbonate [Calcium] 600 mg PO DAILY 09/30/16 12/08/16 1 Day Ago History Carvedilol [Coreg] 12.5 mg PO BID 09/30/16 12/08/16 1 Day Ago History amLODIPine [Norvasc] 10 mg PO DAILY 12/08/16 12/08/16 Unknown History Active Meds: Active Medications Acetaminophen (Tylenol) 650 mg PO Q4H PRN PRN Reason: Pain MILD(1-3)/Fever >100.5/ORDAZ Albuterol (Proventil) 2.5 mg IH Q4HRT PRN PRN Reason: Shortness Of Breath Last Admin: 12/09/16 07:19 Dose: 2.5 mg Aspirin (Baby Aspirin) 81 mg PO QDAY PASCUAL Bisacodyl (Dulcolax) 10 mg MS QDAY PRN PRN Reason: Constipation unrelieved by MOM Calcium Carbonate/Glycine (Calcium Carbonate) 648 mg PO DAILY PASCUAL Carvedilol (Coreg) 12.5 mg PO BID PASCUAL Enoxaparin Sodium (Lovenox) 30 mg SUB-Q QDAY PASCUAL Hydralazine HCl (Apresoline) 5 mg IV Q6HR PRN PRN Reason: Hypertension Megestrol Acetate (Megace) 400 mg PO DAILY PASCUAL Ondansetron HCl (Zofran) 4 mg IV Q8H PRN PRN Reason: N/V unrelieved by Reglan Oxycodone/Acetaminophen (Percocet 5/325) 1 tab PO Q6H PRN PRN Reason: Pain, Moderate (4-6) Review of Systems All systems: negative (SOB, weakness) Exam - Vital Signs Vital signs: Vital Signs Temp Pulse Resp BP Pulse Ox 98.9 F 106 H 32 H 175/88 95 12/08/16 17:38 12/08/16 17:38 12/08/16 17:38 12/08/16 17:38 12/08/16 17:38 - General Appearance General appearance: well-developed, well-nourished EENT: ATNC, PERRL, mucous membranes moist Neck: Present: neck supple Respiratory: Other (diffuse crackles in all lung chung) Heart: regular, S1S2 Gastrointestinal: Present: normoactive bowel sounds. Absent: tenderness, distended, masses Integumentary: no rash, warm and dry Neurologic: no focal deficit, no asterixis, alert and oriented x3 Musculoskeletal: Present: other (no edema in BLE) Psychiatric: mood/affect appropriate, cooperative Results - Lab Results 12/09/16 05:29 12/09/16 05:29 Most recent lab results Calcium 9.2 mg/dL (8.4-10.2) 12/09/16 05:29 Assessment and Plan ESRD on HD HD today for clearance and volume removal via permcath UF goal 3-4 L as tolerated, will order HD again tomorrow will assess dialysis needs daily strict I&O daily weights renal diet HTN UF with HD as above will adjust meds as needed Anemia in CKD Epogen with HD Hypoxic resp failure due to pulm congestion UF with HD HD again tomorrow
--- NOTE | 2016-12-09 10:36 | Consultation ---
History of Present Illness Consult date: 12/09/16 History of present illness: This is a 51 year old woman on hemodialysis who presented with shortness of breath and fluid overload. Patient admits compliance with outpatient dialysis. She had a cardiac catheterization 3 months ago, which reported normal coronary arteries and well preserved left ventricular systolic function, ejection fraction 55%. An echo done a month ago reports a left ventricular ejection fraction is well-preserved at 45%, but a new finding of significant aortic regurgitation. An outpatient VY was planned for further assessment of the valve but due to lack of transportation patient was unable to keep that appointment. Cardiology consultation requested for VY. Past History Past Medical History: ESRD, hypertension Medications and Allergies Allergies Allergy/AdvReac Type Severity Reaction Status Date / Time No Known Allergies Allergy Verified 12/08/16 17:45 Home Medications Medication Instructions Recorded Confirmed Last Taken Type Megestrol Acetate 40 ml PO DAILY 07/27/16 12/08/16 1 Day Ago History Calcium Carbonate [Calcium] 600 mg PO DAILY 09/30/16 12/08/16 1 Day Ago History Carvedilol [Coreg] 12.5 mg PO BID 09/30/16 12/08/16 1 Day Ago History amLODIPine [Norvasc] 10 mg PO DAILY 12/08/16 12/08/16 Unknown History Active Meds: Active Medications Acetaminophen (Tylenol) 650 mg PO Q4H PRN PRN Reason: Pain MILD(1-3)/Fever >100.5/ORDAZ Albuterol (Proventil) 2.5 mg IH Q4HRT PRN PRN Reason: Shortness Of Breath Last Admin: 12/09/16 07:19 Dose: 2.5 mg Aspirin (Baby Aspirin) 81 mg PO QDAY PASCUAL Bisacodyl (Dulcolax) 10 mg MD QDAY PRN PRN Reason: Constipation unrelieved by MOM Calcium Carbonate/Glycine (Calcium Carbonate) 648 mg PO DAILY PASCUAL Carvedilol (Coreg) 12.5 mg PO BID PASCUAL Enoxaparin Sodium (Lovenox) 30 mg SUB-Q QDAY PASCUAL Epoetin Wes (Procrit) 10,000 unit IV MARIANNA PRN PRN Reason: hemodialysis Hydralazine HCl (Apresoline) 5 mg IV Q6HR PRN PRN Reason: Hypertension Megestrol Acetate (Megace) 400 mg PO DAILY PASCUAL Ondansetron HCl (Zofran) 4 mg IV Q8H PRN PRN Reason: N/V unrelieved by Reglan Oxycodone/Acetaminophen (Percocet 5/325) 1 tab PO Q6H PRN PRN Reason: Pain, Moderate (4-6) Physical Examination Vital Signs Temp Pulse Resp BP Pulse Ox 98.9 F 106 H 32 H 175/88 95 12/08/16 17:38 12/08/16 17:38 12/08/16 17:38 12/08/16 17:38 12/08/16 17:38 Results 12/09/16 05:29 12/09/16 05:29 Cardiac Enzymes 12/09/16 12/09/16 Range/Units 01:23 05:29 CK-MB (CK-2) 1.3 1.5 (0.0-4.0) ng/mL CBC 12/09/16 Range/Units 05:29 WBC 3.2 L (4.5-11.0) K/mm3 RBC 3.21 L (3.65-5.03) M/mm3 Hgb 9.3 L (10.1-14.3) gm/dl Hct 28.8 L (30.3-42.9) % Plt Count 231 (140-440) K/mm3 Lymph # 0.7 L (1.2-5.4) K/mm3 [place] # 0.5 (0.0-0.8) K/mm3 Eos # 0.0 (0.0-0.4) K/mm3 Baso # 0.0 (0.0-0.1) K/mm3 Comprehensive Metabolic Panel 12/09/16 Range/Units 05:29 Sodium 138 (137-145) mmol/L Potassium 5.2 H (3.6-5.0) mmol/L Chloride 94.9 L (98-107) mmol/L Carbon Dioxide 30 (22-30) mmol/L BUN 56 H (7-17) mg/dL Creatinine 9.5 H (0.7-1.2) mg/dL Glucose 85 (65-100) mg/dL Calcium 9.2 (8.4-10.2) mg/dL Assessment and Plan Volume overload Severe aortic regurgitation noted by echocardiogram 11/2016 No evidence of aortic root dissection on echocardiogram Cardiomyopathy, non-ischemic LVEF 40-45% Cath 09/12/2016 - normal coronaries ESRD on HD SLE Anemia Recommendations: Fluid management through HD. For planned VY tomorrow morning for further assessment of the valve.
[2016-12-09] MEDS: BABY ASPIRIN PO SCH ×2 (10:38→17:37)
[2016-12-09] MEDS: LOVENOX SUB-Q SCH (10:39)
[2016-12-09] MEDS: COREG PO SCH ×3 (10:40→22:41)
[2016-12-09] MEDS ORDERED: NACL 0.9% 1000 ML 100 ML IV PRN (11:42)
[2016-12-09] MEDS: PROCRIT IV PRN (14:11)
[2016-12-09] MEDS: HEPARIN IV PRN (14:11)
--- NOTE | 2016-12-09 16:30 | Progress Note ---
Assessment and Plan Assessment and plan: Acute respiratory failure 2/2 pulmonary congestion - Nephrology consulted - And dialyzed the morning - Be dialyzed tomorrow Aortic regurgitation - Previous echo showed significant aortic regurgitation - Cardiology consulted - Recommended predischarge or outpatient VY Prophylaxis - Lovenox Disposition - Continue inpatient care History Interval history: Patient was seen and evaluated in the morning. He was complaining shortness of breath. Hospitalist Physical - Physical exam Narrative exam: Patient is in mild cardiopulmonary distress. The patient appeared well nourished and normally developed. Vital signs as documented. Head exam is unremarkable. No scleral icterus . Neck is without jugular venous distension, thyromegaly, or carotid bruits. Lungs significant for bibasilar rales. Cardiac exam reveals normal S1 and S2. Abdominal exam reveals normal bowel sounds, no masses, no organomegaly and no aortic enlargement. Extremities are nonedematous and both femoral and pedal pulses are normal. PATIENT SAFETY TECH: Alert and oriented 3. No focal weakness. - Constitutional Vitals: Temp Pulse Resp BP Pulse Ox 98.4 F 98 H 20 119/66 97 12/09/16 11:00 12/09/16 15:00 12/09/16 11:00 12/09/16 15:00 12/09/16 08:00 Results - Labs CBC & Chem 7: 12/09/16 05:29 12/09/16 05:29 Labs: Laboratory Last Values WBC 3.2 K/mm3 (4.5-11.0) L 12/09/16 05:29 RBC 3.21 M/mm3 (3.65-5.03) L 12/09/16 05:29 Hgb 9.3 gm/dl (10.1-14.3) L 12/09/16 05:29 Hct 28.8 % (30.3-42.9) L 12/09/16 05:29 MCV 90 fl (79-97) 12/09/16 05:29 MCH 29 pg (28-32) 12/09/16 05:29 MCHC 32 % (30-34) 12/09/16 05:29 RDW 20.3 % (13.2-15.2) H 12/09/16 05:29 Plt Count 231 K/mm3 (140-440) 12/09/16 05:29 Lymph % (Auto) 21.7 % (13.4-35.0) 12/09/16 05:29 [place] % (Auto) 15.8 % (0.0-7.3) H 12/09/16 05:29 Eos % (Auto) 0.7 % (0.0-4.3) 12/09/16 05:29 Baso % (Auto) 1.2 % (0.0-1.8) 12/09/16 05:29 Lymph # 0.7 K/mm3 (1.2-5.4) L 12/09/16 05:29 Fisher # 0.5 K/mm3 (0.0-0.8) 12/09/16 05:29 Eos # 0.0 K/mm3 (0.0-0.4) 12/09/16 05:29 Baso # 0.0 K/mm3 (0.0-0.1) 12/09/16 05:29 Seg Neutrophils % 60.6 % (40.0-70.0) 12/09/16 05:29 Seg Neutrophils # 1.9 K/mm3 (1.8-7.7) 12/09/16 05:29 PT 12.7 Sec. (12.2-14.9) 12/08/16 21:05 INR 0.96 (0.87-1.13) 12/08/16 21:05 Sodium 138 mmol/L (137-145) 12/09/16 05:29 Potassium 5.2 mmol/L (3.6-5.0) H 12/09/16 05:29 Chloride 94.9 mmol/L (98-107) L 12/09/16 05:29 Carbon Dioxide 30 mmol/L (22-30) 12/09/16 05:29 Anion Gap 18 mmol/L 12/09/16 05:29 BUN 56 mg/dL (7-17) H 12/09/16 05:29 Creatinine 9.5 mg/dL (0.7-1.2) H 12/09/16 05:29 Estimated GFR 5 ml/min 12/09/16 05:29 BUN/Creatinine Ratio 5.89 % 12/09/16 05:29 Glucose 85 mg/dL (65-100) 12/09/16 05:29 Calcium 9.2 mg/dL (8.4-10.2) 12/09/16 05:29 Total Creatine Kinase 26 units/L (30-135) L 12/09/16 05:29 CK-MB (CK-2) 1.5 ng/mL (0.0-4.0) 12/09/16 05:29 CK-MB (CK-2) Rel Index 5.7 (0-4) H 12/09/16 05:29 Troponin T 0.098 ng/mL (0.00-0.029) H 12/09/16 05:29 NT-Pro-B Natriuret Pep > 13210 pg/mL (0-900) H 12/08/16 18:44 Triglycerides 101 mg/dL (2-149) 12/08/16 18:44 Cholesterol 155 mg/dL (50-199) 12/08/16 18:44 LDL Cholesterol Direct 70 mg/dL (50-130) 12/08/16 18:44 HDL Cholesterol 65 mg/dL (40-59) H 12/08/16 18:44 Cholesterol/HDL Ratio 2.38 % 12/08/16 18:44
[2016-12-09] MEDS: CALCIUM CARBONATE PO SCH (17:38)
[2016-12-09] MEDS: PROTONIX PO SCH (22:41)
[2016-12-10 08:04] LABS: Hematocrit 26.5 % (30.3-42.9); Hemoglobin 8.6 gm/dl (10.1-14.3); Mean Corpuscular HGB Conc 33 % (30-34); Mean Corpuscular Hemoglobin 29 pg (28-32); Mean Corpuscular Volume 90 fl (79-97); Platelet Count 217 K/mm3 (140-440); Red Blood Count 2.93 M/mm3 (3.65-5.03); Red Cell Distribution Width 20.2 % (13.2-15.2); White Blood Count 2.6 K/mm3 (4.5-11.0)
[2016-12-10 08:23] LABS: BUN/Creatinine Ratio 4.44; Calcium 8.9 mg/dL (8.4-10.2); Chloride 94.7 mmol/L (98-107); Potassium 4.7 mmol/L (3.6-5.0)
[2016-12-10] MEDS ORDERED: SUBLIMAZE IV ONE (09:00)
[2016-12-10] MEDS ORDERED: HURRICAINE ONE 20% TOPICAL SPRAY MM NR (09:00)
[2016-12-10] MEDS ORDERED: VERSED IV ONE ×2 (09:00→11:40)
[2016-12-10] MEDS: PERCOCET 5/325 PO PRN ×2 (09:12→17:22)
[2016-12-10] MEDS: COREG PO SCH ×2 (09:13→21:18)
[2016-12-10 09:31] LABS: Blastocytes % (Manual) 0 %
[2016-12-10 09:32] LABS: Acanthocytes Few; Anisocytosis 1+; Poikilocytosis 1+; Tear Drop Cells Few
[2016-12-10 09:33] LABS: Diff Status Complete; Platelet Estimate Cons
[2016-12-10] MEDS: PROTONIX PO SCH ×2 (10:00→17:23)
[2016-12-10] MEDS: BABY ASPIRIN PO SCH (10:00)
[2016-12-10] MEDS: LOVENOX SUB-Q SCH (10:00)
[2016-12-10] MEDS: CALCIUM CARBONATE PO SCH (10:00)
[2016-12-10] MEDS ORDERED: SUBLIMAZE ONE (11:40)
--- NOTE | 2016-12-10 12:33 | Progress Note ---
Assessment and Plan Assessment: Volume overload Severe aortic regurgitation noted by echocardiogram 11/2016 VY today consistent with severe AI (regurgitant volume 60 ml with an ERO 0.35 cm2, and a LVESD 4.17 cm) Cardiomyopathy, non-ischemic LVEF 40-45% Cath 09/12/2016 - normal coronaries ESRD on HD SLE Anemia Recommendations: Patient needs surgical replacement of her aortic valve given multiple heart failure admissions recently However, prior to valve surgery patient requires establishing dialysis access with AV graft or fistula in order to discontinue permacath A vascular surgery consultation is warranted - patient needs instant AV graft for early access prior to referral for valve surgery. Subjective Date of service: 12/10/16 Principal diagnosis: CHF Interval history: Patient underwent a VY today without complications. Objective Vital Signs Temp Pulse Pulse Pulse Pulse Pulse Resp 12/10/16 12:13 85 12/10/16 12:10 85 12/10/16 12:07 89 12/10/16 12:04 89 12/10/16 12:01 92 H 12/10/16 11:54 89 12/10/16 10:00 88 12/10/16 09:50 12/10/16 09:13 92 H 12/10/16 07:57 98.5 F 92 H 18 12/10/16 04:51 98.2 F 88 18 12/10/16 00:10 97.6 F 98 H 18 12/09/16 22:10 97 H 12/09/16 22:05 12/09/16 20:32 98 H 12/09/16 19:48 98.7 F 101 H 20 12/09/16 16:00 97.9 F 92 H 20 12/09/16 15:00 98 H 12/09/16 14:45 100 H 12/09/16 14:30 101 H 12/09/16 14:15 101 H 12/09/16 14:05 99 H 12/09/16 13:45 98 H 12/09/16 13:30 97 H 12/09/16 13:15 99 H 12/09/16 13:00 99 H 12/09/16 12:45 93 H 12/09/16 12:30 95 H Resp Resp BP BP BP Pulse Ox Pulse Ox 12/10/16 12:13 14 170/80 93 12/10/16 12:10 14 165/74 99 12/10/16 12:07 20 166/76 100 12/10/16 12:04 14 160/75 97 12/10/16 12:01 20 153/73 97 12/10/16 11:54 16 149/75 99 12/10/16 10:00 12/10/16 09:50 98 12/10/16 09:13 157/71 12/10/16 07:57 157/71 100 12/10/16 04:51 149/65 99 12/10/16 00:10 148/68 94 12/09/16 22:10 22 12/09/16 22:05 100 12/09/16 20:32 12/09/16 19:48 145/69 98 12/09/16 16:00 153/67 100 12/09/16 15:00 119/66 12/09/16 14:45 121/65 12/09/16 14:30 128/66 12/09/16 14:15 123/65 12/09/16 14:05 127/64 12/09/16 13:45 137/66 12/09/16 13:30 136/69 12/09/16 13:15 134/69 12/09/16 13:00 152/72 12/09/16 12:45 150/70 12/09/16 12:30 155/74 - Physical Examination Neck: Positive: neck supple Cardiac: Positive: Reg Rate and Rhythm, Diastolic Murmur Lungs: Positive: Normal Breath Sounds Neuro: Positive: Grossly Intact Abdomen: Positive: Soft Extremities: Absent: edema - Labs and Meds CBC 12/10/16 Range/Units 06:25 WBC 2.6 L (4.5-11.0) K/mm3 RBC 2.93 L (3.65-5.03) M/mm3 Hgb 8.6 L (10.1-14.3) gm/dl Hct 26.5 L (30.3-42.9) % Plt Count 217 (140-440) K/mm3 Comprehensive Metabolic Panel 12/10/16 Range/Units 06:25 Sodium 137 (137-145) mmol/L Carbon Dioxide 27 (22-30) mmol/L BUN 28 H (7-17) mg/dL Creatinine 6.3 H (0.7-1.2) mg/dL Glucose 70 (65-100) mg/dL Calcium 8.9 (8.4-10.2) mg/dL - Imaging and Cardiology EKG: image reviewed
--- NOTE | 2016-12-10 14:48 | Event Note ---
Date: 12/10/[address] Mahajan regarding access creation prior to valve replacement. Unfortunately, Dr. Mahajan informed us that the patient is at high risk of cardiopulmonary complication from a vascular surgical procedure. He believes that the patient will be best served by having her valve replacement evaluated by a cardiothoracic surgeon prior to any vascular access procedure. If this changes and there is a request for AV access creation, please contact us again. Thanks.
[2016-12-10] MEDS: PROCRIT IV PRN (15:21)
--- NOTE | 2016-12-10 16:57 | Progress Note ---
Assessment and Plan - Patient Problems (1) ESRD on hemodialysis Current Visit: No Status: Chronic Plan to address problem: Status post Hemodialysis yesterday for ultrafiltration and clearance Additional Hemodialysis treatment today for ultrafiltration and clearance via Right Perm Catheter Assess need for HD on daily basis Renally dose medications Obtain daily weight Strict intake and output Renal plan discussed with Dr Hill Continue supportive therapy (2) Volume overload Current Visit: Yes Status: Acute Qualifiers: Hypervolemia type: H Plan to address problem: Hemodialysis today for UF and clearance Assess need for HD on daily basis (3) Anemia in chronic kidney disease (CKD) Current Visit: No Status: Chronic Plan to address problem: Epogen dosing during HD for anemia management (4) Hypertensive CKD, ESRD on dialysis Current Visit: No Status: Chronic Plan to address problem: Continue on current anti-hypertensive regimen (5) Aortic regurgitation Current Visit: No Status: Acute Qualifiers: Cardiac valve disease etiology: C Plan to address problem: Status post VY on 12/10/16 showed severe aortic regurgitation, will require valve replacement- as per Cardiology management Subjective Date of service: 12/10/16 Principal diagnosis: CHF Interval history: Patient seen in Hemodialysis Unit, states she is breathing better. No acute distress Objective - Vital Signs Vital signs: Vital Signs - 12hr 12/10/16 12/10/16 12/10/16 07:57 09:13 09:50 Temperature 98.5 F Pulse Rate 92 H Pulse Rate [ Intra-Procedure ] Pulse Rate [ 92 H Left Radial] Pulse Rate [ Post-Procedure] Respiratory 18 Rate Respiratory Rate [Intra- Procedure] Respiratory Rate [Post- Procedure] Blood Pressure 157/71 Blood Pressure [Intra- Procedure] Blood Pressure 157/71 [Left Arm] Blood Pressure [Post-Procedure ] O2 Sat by Pulse 100 98 Oximetry O2 Sat by Pulse Oximetry [ Intra-Procedure ] O2 Sat by Pulse Oximetry [Post -Procedure] 12/10/16 12/10/16 12/10/16 10:00 11:54 12:01 Temperature Pulse Rate 88 Pulse Rate [ 89 92 H Intra-Procedure ] Pulse Rate [ Left Radial] Pulse Rate [ Post-Procedure] Respiratory Rate Respiratory 16 20 Rate [Intra- Procedure] Respiratory Rate [Post- Procedure] Blood Pressure Blood Pressure 149/75 153/73 [Intra- Procedure] Blood Pressure [Left Arm] Blood Pressure [Post-Procedure ] O2 Sat by Pulse Oximetry O2 Sat by Pulse 99 97 Oximetry [ Intra-Procedure ] O2 Sat by Pulse Oximetry [Post -Procedure] 12/10/16 12/10/16 12/10/16 12:04 12:07 12:10 Temperature Pulse Rate Pulse Rate [ 89 89 85 Intra-Procedure ] Pulse Rate [ Left Radial] Pulse Rate [ Post-Procedure] Respiratory Rate Respiratory 14 20 14 Rate [Intra- Procedure] Respiratory Rate [Post- Procedure] Blood Pressure Blood Pressure 160/75 166/76 165/74 [Intra- Procedure] Blood Pressure [Left Arm] Blood Pressure [Post-Procedure ] O2 Sat by Pulse Oximetry O2 Sat by Pulse 97 100 99 Oximetry [ Intra-Procedure ] O2 Sat by Pulse Oximetry [Post -Procedure] 12/10/16 12/10/16 12/10/16 12:13 12:28 13:20 Temperature 98.3 F Pulse Rate 81 Pulse Rate [ 85 Intra-Procedure ] Pulse Rate [ Left Radial] Pulse Rate [ 82 Post-Procedure] Respiratory 20 Rate Respiratory 14 Rate [Intra- Procedure] Respiratory 20 Rate [Post- Procedure] Blood Pressure 140/70 Blood Pressure 170/80 [Intra- Procedure] Blood Pressure [Left Arm] Blood Pressure 148/67 [Post-Procedure ] O2 Sat by Pulse Oximetry O2 Sat by Pulse 93 Oximetry [ Intra-Procedure ] O2 Sat by Pulse 100 Oximetry [Post -Procedure] 12/10/16 12/10/16 12/10/16 13:30 13:45 14:00 Temperature Pulse Rate 79 79 77 Pulse Rate [ Intra-Procedure ] Pulse Rate [ Left Radial] Pulse Rate [ Post-Procedure] Respiratory Rate Respiratory Rate [Intra- Procedure] Respiratory Rate [Post- Procedure] Blood Pressure 149/71 161/70 127/65 Blood Pressure [Intra- Procedure] Blood Pressure [Left Arm] Blood Pressure [Post-Procedure ] O2 Sat by Pulse Oximetry O2 Sat by Pulse Oximetry [ Intra-Procedure ] O2 Sat by Pulse Oximetry [Post -Procedure] 12/10/16 12/10/16 12/10/16 14:15 14:30 14:45 Temperature Pulse Rate 78 124 H 67 Pulse Rate [ Intra-Procedure ] Pulse Rate [ Left Radial] Pulse Rate [ Post-Procedure] Respiratory Rate Respiratory Rate [Intra- Procedure] Respiratory Rate [Post- Procedure] Blood Pressure 118/64 119/62 135/72 Blood Pressure [Intra- Procedure] Blood Pressure [Left Arm] Blood Pressure [Post-Procedure ] O2 Sat by Pulse Oximetry O2 Sat by Pulse Oximetry [ Intra-Procedure ] O2 Sat by Pulse Oximetry [Post -Procedure] 12/10/16 12/10/16 12/10/16 15:00 15:15 15:30 Temperature Pulse Rate 77 70 76 Pulse Rate [ Intra-Procedure ] Pulse Rate [ Left Radial] Pulse Rate [ Post-Procedure] Respiratory Rate Respiratory Rate [Intra- Procedure] Respiratory Rate [Post- Procedure] Blood Pressure 152/70 162/68 160/68 Blood Pressure [Intra- Procedure] Blood Pressure [Left Arm] Blood Pressure [Post-Procedure ] O2 Sat by Pulse Oximetry O2 Sat by Pulse Oximetry [ Intra-Procedure ] O2 Sat by Pulse Oximetry [Post -Procedure] 12/10/16 12/10/16 12/10/16 15:45 16:00 16:15 Temperature Pulse Rate 77 78 52 L Pulse Rate [ Intra-Procedure ] Pulse Rate [ Left Radial] Pulse Rate [ Post-Procedure] Respiratory Rate Respiratory Rate [Intra- Procedure] Respiratory Rate [Post- Procedure] Blood Pressure 146/65 127/62 179/77 Blood Pressure [Intra- Procedure] Blood Pressure [Left Arm] Blood Pressure [Post-Procedure ] O2 Sat by Pulse Oximetry O2 Sat by Pulse Oximetry [ Intra-Procedure ] O2 Sat by Pulse Oximetry [Post -Procedure] 12/10/16 16:30 Temperature Pulse Rate 75 Pulse Rate [ Intra-Procedure ] Pulse Rate [ Left Radial] Pulse Rate [ Post-Procedure] Respiratory Rate Respiratory Rate [Intra- Procedure] Respiratory Rate [Post- Procedure] Blood Pressure 123/53 Blood Pressure [Intra- Procedure] Blood Pressure [Left Arm] Blood Pressure [Post-Procedure ] O2 Sat by Pulse Oximetry O2 Sat by Pulse Oximetry [ Intra-Procedure ] O2 Sat by Pulse Oximetry [Post -Procedure] - General Appearance General appearance: well-developed (no acute distress) EENT: ATNC Neck: no JVD Respiratory: Present: Other (Lung sounds decreased bilaterally, unlabored) Cardiology: regular, S1S2, other (ACCESS: Right Perm Catheter intact) Gastrointestinal: normoactive bowel sounds, no tenderness Integumentary: warm and dry (no rashes noted in inspected areas) Neurologic: alert and oriented x3 Musculoskeletal: other (no edema to both lower extremities) Psychiatric: mood/affect appropriate - Lab 12/10/16 06:25 12/10/16 06:25 Most recent lab results Calcium 8.9 mg/dL (8.4-10.2) 12/10/16 06:25
[2016-12-10] MEDS: HEPARIN IV PRN (17:09)
--- NOTE | 2016-12-10 17:09 | Progress Note ---
Assessment and Plan Assessment and plan: Acute respiratory failure 2/2 pulmonary congestion - Nephrology consulted - And dialyzed the morning - Be dialyzed tomorrow Aortic regurgitation - VY was done and is significant for severe AR, which needs valve replacement - Cardiothoracic evaluation needed as an out patient Prophylaxis - Lovenox Disposition - Continue inpatient care History Interval history: Patient was seen and evaluated in the morning. patients SOB is resolved. Hospitalist Physical - Physical exam Narrative exam: Patient is in mild cardiopulmonary distress. The patient appeared well nourished and normally developed. Vital signs as documented. Head exam is unremarkable. No scleral icterus . Neck is without jugular venous distension, thyromegaly, or carotid bruits. Lungs CTAB. Cardiac exam reveals normal S1 and S2. Abdominal exam reveals normal bowel sounds, no masses, no organomegaly and no aortic enlargement. Extremities are nonedematous and both femoral and pedal pulses are normal. BODY CLEANER: Alert and oriented 3. No focal weakness. - Constitutional Vitals: Temp Pulse Resp BP Pulse Ox 98.3 F 83 20 110/57 100 12/10/16 13:20 12/10/16 16:50 12/10/16 13:20 12/10/16 16:50 12/10/16 12:28 Results - Labs CBC & Chem 7: 12/10/16 06:25 12/10/16 06:25 Labs: Laboratory Last Values WBC 2.6 K/mm3 (4.5-11.0) L 12/10/16 06:25 RBC 2.93 M/mm3 (3.65-5.03) L 12/10/16 06:25 Hgb 8.6 gm/dl (10.1-14.3) L 12/10/16 06:25 Hct 26.5 % (30.3-42.9) L 12/10/16 06:25 MCV 90 fl (79-97) 12/10/16 06:25 MCH 29 pg (28-32) 12/10/16 06:25 MCHC 33 % (30-34) 12/10/16 06:25 RDW 20.2 % (13.2-15.2) H 12/10/16 06:25 Plt Count 217 K/mm3 (140-440) 12/10/16 06:25 Lymph % (Auto) 21.7 % (13.4-35.0) 12/09/16 05:29 [place] % (Auto) Core Inserter 12/10/16 06:25 Eos % (Auto) 0.7 % (0.0-4.3) 12/09/16 05: Baso % (Auto) 1.2 % (0.0-1.8) 12/09/16 05:29 Lymph # 0.7 K/mm3 (1.2-5.4) L 12/09/16 05: [place] # 0.5 K/mm3 (0.0-0.8) 12/09/16 05: Eos # 0.0 K/mm3 (0.0-0.4) 12/09/16 05: Baso # 0.0 K/mm3 (0.0-0.1) 12/09/16 05:29 Add Manual Diff Complete 12/10/16 06:25 Total Counted 100 12/10/16 06:25 Seg Neutrophils % 60.6 % (40.0-70.0) 12/09/16 05:29 Seg Neuts % (Manual) 64.0 % (40.0-70.0) 12/10/16 06:25 Band Neutrophils % 0 % 12/10/16 06:25 Lymphocytes % (Manual) 21.0 % (13.4-35.0) 12/10/16 06:25 Reactive Lymphs % (Man) 1.0 % 12/10/16 06:25 Monocytes % (Manual) 14.0 % (0.0-7.3) H 12/10/16 06:25 Metamyelocytes % 0 % 12/10/16 06:25 Myelocytes % 0 % 12/10/16 06:25 Promyelocytes % 0 % 12/10/16 06:25 Blast Cells % 0 % 12/10/16 06:25 Nucleated RBC % Not Reportable 12/10/16 06:25 Seg Neutrophils # 1.9 K/mm3 (1.8-7.7) 12/09/16 05:29 Seg Neutrophils # Man 1.7 K/mm3 (1.8-7.7) L 12/10/16 06:25 Band Neutrophils # 0.0 K/mm3 12/10/16 06:25 Lymphocytes # (Manual) 0.5 K/mm3 (1.2-5.4) L 12/10/16 06:25 Abs React Lymphs (Man) 0.0 K/mm3 12/10/16 06:25 Monocytes # (Manual) 0.4 K/mm3 (0.0-0.8) 12/10/16 06:25 Eosinophils # (Manual) 0.0 K/mm3 (0.0-0.4) 12/10/16 06:25 Basophils # (Manual) 0.0 K/mm3 (0.0-0.1) 12/10/16 06:25 Metamyelocytes # 0.0 K/mm3 12/10/16 06:25 Myelocytes # 0.0 K/mm3 12/10/16 06:25 Promyelocytes # 0.0 K/mm3 12/10/16 06:25 Blast Cells # 0.0 K/mm3 12/10/16 06:25 WBC Morphology Not Reportable 12/10/16 06:25 Hypersegmented Neuts Not Reportable 12/10/16 06:25 Hyposegmented Neuts Not Reportable 12/10/16 06:25 Hypogranular Neuts Not Reportable 12/10/16 06:25 Smudge Cells Not Reportable 12/10/16 06:25 Toxic Granulation Not Reportable 12/10/16 06:25 Toxic Vacuolation Not Reportable 12/10/16 06:25 Dohle Bodies Not Reportable 12/10/16 06:25 Pelger-Huet Anomaly Not Reportable 12/10/16 06:25 Deidre Rods Not Reportable 12/10/16 06:25 Platelet Estimate Cons 12/10/16 06:25 Clumped Platelets Not Reportable 12/10/16 06:25 Plt Clumps, EDTA Not Reportable 12/10/16 06:25 Large Platelets Not Reportable 12/10/16 06:25 Giant Platelets Not Reportable 12/10/16 06:25 Platelet Satelliting Not Reportable 12/10/16 06:25 Plt Morphology Comment Not Reportable 12/10/16 06:25 RBC Morphology Not Reportable 12/10/16 06:25 Dimorphic RBCs Not Reportable 12/10/16 06:25 Polychromasia Not Reportable 12/10/16 06:25 Hypochromasia Not Reportable 12/10/16 06:25 Poikilocytosis 1+ 12/10/16 06:25 Anisocytosis 1+ 12/10/16 06:25 Microcytosis Not Reportable 12/10/16 06:25 Macrocytosis Not Reportable 12/10/16 06:25 Spherocytes Not Reportable 12/10/16 06:25 Pappenheimer Bodies Not Reportable 12/10/16 06:25 Sickle Cells Not Reportable 12/10/16 06:25 Target Cells Not Reportable 12/10/16 06:25 Tear Drop Cells Few 12/10/16 06:25 Ovalocytes Not Reportable 12/10/16 06:25 Helmet Cells Not Reportable 12/10/16 06:25 Sauceda-Assaria Bodies Not Reportable 12/10/16 06:25 Coleman Rings Not Reportable 12/10/16 06:25 Chuck Cells Not Reportable 12/10/16 06:25 Bite Cells Not Reportable 12/10/16 06:25 Crenated Cell Not Reportable 12/10/16 06:25 Elliptocytes Not Reportable 12/10/16 06:25 Acanthocytes (Spur) Few 12/10/16 06:25 Rouleaux Not Reportable 12/10/16 06:25 Hemoglobin C Crystals Not Reportable 12/10/16 06:25 Schistocytes Not Reportable 12/10/16 06:25 Malaria parasites Not Reportable 12/10/16 06:25 Dusty Bodies Not Reportable 12/10/16 06:25 Hem Pathologist Commnt No 12/10/16 06:25 PT 12.7 Sec. (12.2-14.9) 12/08/16 21:05 INR 0.96 (0.87-1.13) 12/08/16 21:05 Sodium 137 mmol/L (137-145) 12/10/16 06:25 Potassium 5.2 mmol/L (3.6-5.0) H 12/09/16 05:29 Chloride 94.9 mmol/L (98-107) L 12/09/16 05:29 Carbon Dioxide 27 mmol/L (22-30) 12/10/16 06:25 Anion Gap 18 mmol/L 12/09/16 05:29 BUN 28 mg/dL (7-17) H 12/10/16 06:25 Creatinine 6.3 mg/dL (0.7-1.2) H 12/10/16 06:25 Estimated GFR 8 ml/min 12/10/16 06:25 BUN/Creatinine Ratio 4.44 % 12/10/16 06:25 Glucose 70 mg/dL (65-100) 12/10/16 06:25 Calcium 8.9 mg/dL (8.4-10.2) 12/10/16 06:25 Total Creatine Kinase 26 units/L (30-135) L 12/09/16 05:29 CK-MB (CK-2) 1.5 ng/mL (0.0-4.0) 12/09/16 05:29 CK-MB (CK-2) Rel Index 5.7 (0-4) H 12/09/16 05:29 Troponin T 0.098 ng/mL (0.00-0.029) H 12/09/16 05:29 NT-Pro-B Natriuret Pep > 27226 pg/mL (0-900) H 12/08/16 18:44 Triglycerides 101 mg/dL (2-149) 12/08/16 18:44 Cholesterol 155 mg/dL (50-199) 12/08/16 18:44 LDL Cholesterol Direct 70 mg/dL (50-130) 12/08/16 18:44 HDL Cholesterol 65 mg/dL (40-59) H 12/08/16 18:44 Cholesterol/HDL Ratio 2.38 % 12/08/16 18:44
[2016-12-11 07:46] LABS: Hematocrit 27.2 % (30.3-42.9); Hemoglobin 8.7 gm/dl (10.1-14.3); Mean Corpuscular HGB Conc 32 % (30-34); Mean Corpuscular Hemoglobin 29 pg (28-32); Mean Corpuscular Volume 91 fl (79-97); Platelet Count 218 K/mm3 (140-440); Red Cell Distribution Width 19.6 % (13.2-15.2)
[2016-12-11 07:50] LABS: White Blood Count 2.3 K/mm3 (4.5-11.0)
[2016-12-11 08:15] LABS: BUN/Creatinine Ratio 3.65; Calcium 8.7 mg/dL (8.4-10.2); Chloride 95.4 mmol/L (98-107); Potassium 4.1 mmol/L (3.6-5.0)
[2016-12-11 09:09] LABS: Basophils % (Manual) 0 % (0.0-1.8); Blastocytes % (Manual) 0 %
[2016-12-11 09:11] LABS: Anisocytosis 1+; Hypochromasia 1+; Platelet Estimate Consistent w Auto; Poikilocytosis 1+
[2016-12-11 09:12] LABS: Diff Status Complete
[2016-12-11] MEDS: CALCIUM CARBONATE PO SCH (09:23)
[2016-12-11] MEDS: PROTONIX PO SCH (09:23)
[2016-12-11] MEDS: LOVENOX SUB-Q SCH (09:24)
[2016-12-11] MEDS: COREG PO SCH (09:25)
[2016-12-11] MEDS: BABY ASPIRIN PO SCH (09:26)
--- NOTE | 2016-12-11 10:00 | Discharge Summary ---
Providers - Providers Date of Admission: 12/08/16 23:07 Date of discharge: 12/11/16 Attending physician: J CARLOS NOLAN MD Primary care physician: NEYMAR SALEH MD Hospitalization Reason for admission: Volume overload, ESRD Condition: Stable Disposition: DISCHARGED TO HOME OR SELFCARE Time spent for discharge: 31 minutes - Discharge Diagnoses (1) Pulmonary edema Status: Acute Qualifiers: Chronicity: C (2) Volume overload Status: Acute Qualifiers: Hypervolemia type: H (3) End stage renal disease Status: Chronic (4) Aortic regurgitation Status: Acute Qualifiers: Cardiac valve disease etiology: C Core Measure Documentation - Palliative Care Palliative Care/ Comfort Measures: Not Applicable - Core Measures Any of the following diagnoses?: none Exam - Physical Exam Narrative exam: Patient is in mild cardiopulmonary distress. The patient appeared well nourished and normally developed. Vital signs as documented. Head exam is unremarkable. No scleral icterus . Neck is without jugular venous distension, thyromegaly, or carotid bruits. Lungs CTAB. Cardiac exam reveals normal S1 and S2. Diastolic murmur. Abdominal exam reveals normal bowel sounds, no masses, no organomegaly and no aortic enlargement. Extremities are nonedematous and both femoral and pedal pulses are normal. INSTRUMENT MAKER AND REPAIRER: Alert and oriented 3. No focal weakness. - Constitutional Vitals: Temp Pulse Resp BP Pulse Ox 98.1 F 82 20 124/57 98 12/11/16 08:05 12/11/16 08:05 12/11/16 08:05 12/11/16 08:05 12/11/16 09:42 Plan Activity: no restrictions Weight Bearing Status: Full Weight Bearing Diet: renal Follow up with: NEYMAR SALEH MD [Primary Care Provider] - 7 Days
--- NOTE | 2016-12-11 10:57 | Progress Note ---
Assessment and Plan Volume overload Severe aortic regurgitation noted by echocardiogram 11/2016 No evidence of aortic root dissection on echocardiogram VY this admission consistent with severe AI Cardiomyopathy, non-ischemic LVEF 40-45% Cath 09/12/2016 - normal coronaries ESRD on HD SLE Anemia Recommendations: Fluid management through HD. Patient refuses surgical evaluation for severe AI. Will pursue a conservative cardiac management. F/U with Dr Mahajan within 1 week once discharged. Subjective Date of service: 12/11/16 Principal diagnosis: CHF Interval history: Patient denies shortness of breath. For planned discharge home today. Objective Vital Signs Temp Pulse Pulse Pulse Pulse Pulse Pulse 12/11/16 09:42 12/11/16 08:05 98.1 F 82 12/11/16 04:00 98.3 F 80 12/11/16 00:00 98.0 F 89 12/10/16 21:18 80 12/10/16 20:52 12/10/16 20:00 98.0 F 80 12/10/16 18:00 88 12/10/16 17:15 80 12/10/16 17:00 97.7 F 76 12/10/16 16:50 83 12/10/16 16:30 75 12/10/16 16:15 52 L 12/10/16 16:00 78 12/10/16 15:45 77 12/10/16 15:30 76 12/10/16 15:15 70 12/10/16 15:00 77 12/10/16 14:45 67 12/10/16 14:30 124 H 12/10/16 14:15 78 12/10/16 14:00 77 12/10/16 13:45 79 12/10/16 13:30 79 12/10/16 13:20 98.3 F 81 12/10/16 12:28 82 12/10/16 12:13 85 12/10/16 12:10 85 12/10/16 12:07 89 12/10/16 12:04 89 12/10/16 12:01 92 H 12/10/16 11:54 89 Resp Resp Resp BP BP BP BP 12/11/16 09:42 12/11/16 08:05 20 124/57 12/11/16 04:00 18 127/60 12/11/16 00:00 18 138/63 12/10/16 21:18 117/70 12/10/16 20:52 12/10/16 20:00 18 117/58 12/10/16 18:00 12/10/16 17:15 14 125/59 12/10/16 17:00 20 138/62 12/10/16 16:50 110/57 12/10/16 16:30 123/53 12/10/16 16:15 179/77 12/10/16 16:00 127/62 12/10/16 15:45 146/65 12/10/16 15:30 160/68 12/10/16 15:15 162/68 12/10/16 15:00 152/70 12/10/16 14:45 135/72 12/10/16 14:30 119/62 12/10/16 14:15 118/64 12/10/16 14:00 127/65 12/10/16 13:45 161/70 12/10/16 13:30 149/71 12/10/16 13:20 20 140/70 12/10/16 12:28 20 148/67 12/10/16 12:13 14 170/80 12/10/16 12:10 14 165/74 12/10/16 12:07 20 166/76 12/10/16 12:04 14 160/75 12/10/16 12:01 20 153/73 12/10/16 11:54 16 149/75 Pulse Ox Pulse Ox Pulse Ox 12/11/16 09:42 98 12/11/16 08:05 100 12/11/16 04:00 99 12/11/16 00:00 98 12/10/16 21:18 12/10/16 20:52 100 12/10/16 20:00 99 12/10/16 18:00 12/10/16 17:15 98 12/10/16 17:00 12/10/16 16:50 12/10/16 16:30 12/10/16 16:15 12/10/16 16:00 12/10/16 15:45 12/10/16 15:30 12/10/16 15:15 12/10/16 15:00 12/10/16 14:45 12/10/16 14:30 12/10/16 14:15 12/10/16 14:00 12/10/16 13:45 12/10/16 13:30 12/10/16 13:20 12/10/16 12:28 100 12/10/16 12:13 93 12/10/16 12:10 99 12/10/16 12:07 100 12/10/16 12:04 97 12/10/16 12:01 97 12/10/16 11:54 99 - Physical Examination General: No Apparent Distress HEENT: Positive: PERRL Neck: Positive: neck supple Cardiac: Positive: Reg Rate and Rhythm Lungs: Positive: Decreased Breath Sounds Neuro: Positive: Grossly Intact Abdomen: Positive: Soft Extremities: Absent: edema - Labs and Meds CBC 12/11/16 Range/Units 07:08 WBC 2.3 L (4.5-11.0) K/mm3 RBC 3.00 L (3.65-5.03) M/mm3 Hgb 8.7 L (10.1-14.3) gm/dl Hct 27.2 L (30.3-42.9) % Plt Count 218 (140-440) K/mm3 Comprehensive Metabolic Panel 12/11/16 Range/Units 07:08 Sodium 138 (137-145) mmol/L Potassium 4.1 (3.6-5.0) mmol/L Chloride 95.4 L (98-107) mmol/L Carbon Dioxide 26 (22-30) mmol/L BUN 19 H (7-17) mg/dL Creatinine 5.2 H (0.7-1.2) mg/dL Glucose 77 (65-100) mg/dL Calcium 8.7 (8.4-10.2) mg/dL - Imaging and Cardiology EKG: image reviewed
--- NOTE | 2016-12-11 11:18 | Progress Note ---
Assessment and Plan (1) ESRD on hemodialysis Current Visit: No Status: Chronic Plan to address problem: will not be able to her treatment as an outpatient today short HD today for clearance and volume removal, can be discharged after HD< next scheduled tx as an outpatient this Thursday Assess need for HD on daily basis Renally dose medications Obtain daily weight Strict intake and output (2) Volume overload Current Visit: Yes Status: Acute Qualifiers: Hypervolemia type: H Plan to address problem: improved with UF (3) Anemia in chronic kidney disease (CKD) Current Visit: No Status: Chronic Plan to address problem: Epogen dosing during HD for anemia management (4) Hypertensive CKD, ESRD on dialysis Current Visit: No Status: Chronic Plan to address problem: Continue on current anti-hypertensive regimen (5) Aortic regurgitation Current Visit: No Status: Acute Qualifiers: Cardiac valve disease etiology: C Plan to address problem: Status post VY on 12/10/16 showed severe aortic regurgitation, will require valve replacement- as per Cardiology management Subjective Date of service: 12/11/16 Principal diagnosis: ESRD Interval history: breathing ok this AM Objective - Vital Signs Vital signs: Vital Signs - 12hr 12/11/16 12/11/16 12/11/16 00:00 04:00 08:05 Temperature 98.0 F 98.3 F 98.1 F Pulse Rate [ 82 Apical] Pulse Rate [ 89 Right Radial] Pulse Rate [ 80 Right] Respiratory 18 18 20 Rate Blood Pressure 138/63 127/60 124/57 [Right Arm] O2 Sat by Pulse 98 99 100 Oximetry 12/11/16 09:42 Temperature Pulse Rate [ Apical] Pulse Rate [ Right Radial] Pulse Rate [ Right] Respiratory Rate Blood Pressure [Right Arm] O2 Sat by Pulse 98 Oximetry - General Appearance General appearance: well-developed, well-nourished EENT: ATNC, PERRL, mucous membranes moist Neck: no JVD, no carotid bruit Respiratory: Present: Clear to Ascultation. Absent: Ronchi, Wheezes Cardiology: regular, S1S2 Gastrointestinal: normoactive bowel sounds, no tenderness, no distended Integumentary: no rash, warm and dry Neurologic: no focal deficit, no asterixis, alert and oriented x3 Musculoskeletal: other (no edema in BLE) Psychiatric: mood/affect appropriate, cooperative - Lab 12/11/16 07:08 12/11/16 07:08 Most recent lab results Calcium 8.7 mg/dL (8.4-10.2) 12/11/16 07:08
[2016-12-11] MEDS: HEPARIN IV PRN (13:05)
[2016-12-11] MEDS: PROCRIT IV PRN (13:08)
[2016-12-11 16:47] VITALS: BP 112/54
== END 2016-12-11 15:21 | disposition home health service (06) | DRG 291 ==
LOC: ED 17:04 → 4A 23:07
PROVIDERS: ADMIT Internal Medicine; ATTEND Internal Medicine
PROC: 5A1D60Z (ICD-10-PCS; principal; 2016-12-08)
DX: I13.2 Hypertensive heart and chronic kidney disease with heart failure and with stage 5 chronic kidney disease, or end stage renal disease (principal); N18.6 End stage renal disease; J96.01 Acute respiratory failure with hypoxia; E87.70 Fluid overload, unspecified; M32.9 Systemic lupus erythematosus, unspecified; I35.1 Nonrheumatic aortic (valve) insufficiency; I42.9 Cardiomyopathy, unspecified; I50.9 Heart failure, unspecified; M19.90 Unspecified osteoarthritis, unspecified site; D63.1 Anemia in chronic kidney disease; Z99.2 Dependence on renal dialysis; Z82.49 Family history of ischemic heart disease and other diseases of the circulatory system
CPT/HCPCS: 36415; 71020; 80048; 80061; 82550; 82553; 83880; 84484; 85007; 85025; 85610; 93005; 93010; 93312; 93320; 93325; 94640; 94760; 96374; 96375; J0360; J0885; J1644; J1650; J1940; J2250; J3010; J7030

== ENCOUNTER 2017-06-02 23:52 | Inpatient (IN) | payer MEDICARE ==
--- NOTE | 2017-06-03 00:36 | Emergency Department Report ---
HPI - General Time Seen by Provider: 06/03/17 00:07 - HPI HPI: Room 1 The patient is a 51-year-old female presenting with a chief complaint of shortness of breath. Patient states her shortness of breath began yesterday but worsened approximately 1 hour prior to arrival. Patient denies chest pain. The patient has history of end-stage renal disease and states she last received dialysis today. The patient states she instructed the nurses to stop the dialysis approximately 25-35 minutes early secondary to itching in her legs. Per EMS the patient had an SPO2 of 80% on room air upon their arrival this improved with O2 by nasal cannula Location: Lungs Duration: 2 days Quality: Shortness Of breath Severity: Severe Modifying factors: [see above] Context: [see above] Mode of transportation: [not driving] ED Past Medical Hx - Past Medical History Previous Medical History?: Yes Hx Hypertension: Yes Hx Congestive Heart Failure: Yes Hx Renal Disease: Yes (ESRD,HD / /SAT) Hx Arthritis: Yes Additional medical history: LUPUS. PULMONARY EDEMA. ANEMIA - Surgical History Past Surgical History?: Yes Additional Surgical History: TONSILLECTOMY. ovarian cyst removed. perma cath right chest - Family History Family history: no significant - Social History Smoking Status: Never Smoker Substance Use Type: None - Medications Home Medications: Home Medications Medication Instructions Recorded Confirmed Last Taken Type Megestrol Acetate 40 ml PO DAILY 07/27/16 06/03/17 1 Day Ago History AtorvaSTATin [Lipitor] 40 mg PO DAILY 04/23/17 06/03/17 Unknown History Dicyclomine [Bentyl] 10 mg PO DAILY 04/23/17 06/03/17 Unknown History Sertraline HCl [Zoloft] 50 mg PO DAILY 04/23/17 06/03/17 Unknown History Sodium Bicarbonate 650 mg PO BID 04/23/17 06/03/17 Unknown History Metoprolol [Lopressor TAB] 25 mg PO BID #60 tablet 04/27/17 06/03/17 Unknown Rx traMADol [Ultram 50 MG tab] 50 mg PO Q8H PRN #15 tablet 04/27/17 06/03/17 Unknown Rx ED Review of Systems ROS: Stated complaint: MARVIN Other details as noted in HPI Comment: All other systems reviewed and negative Constitutional: denies: chills, fever Eyes: denies: eye pain, eye discharge, vision change ENT: denies: ear pain, throat pain Respiratory: shortness of breath Cardiovascular: denies: chest pain, palpitations Endocrine: no symptoms reported Gastrointestinal: denies: abdominal pain, nausea, diarrhea Genitourinary: denies: urgency, dysuria, discharge Musculoskeletal: denies: back pain, joint swelling, arthralgia Skin: denies: rash, lesions Neurological: denies: headache, weakness, paresthesias Psychiatric: denies: anxiety, depression Hematological/Lymphatic: denies: easy bleeding, easy bruising Physical Exam - Physical Exam Vital Signs: Vital Signs 06/03/17 00:04 Temperature 99.7 F H Pulse Rate 118 H Respiratory 18 Rate Blood Pressure 176/90 O2 Sat by Pulse 82 L Oximetry Physical Exam: GENERAL: The patient is well-developed well-nourished female sitting on stretcher appearing to have mildly labored respiration. [] HEENT: Normocephalic. Atraumatic. Extraocular motions are intact. Patient has moist mucous membranes. NECK: Supple. Trachea midline CHEST/LUNGS: No crackles auscultated. Breath sounds bilaterally. There is respiratory distress noted. HEART/CARDIOVASCULAR: Regular. There is tachycardia. There is no gallop rub or murmur. ABDOMEN: Abdomen is soft, nontender. Patient has normal bowel sounds. There is no abdominal distention. SKIN: There is no rash. There is no edema. There is no diaphoresis. NEURO: The patient is awake, alert, and oriented. The patient is cooperative. The patient has normal speech MUSCULOSKELETAL: There is no evidence of acute injury. ED Course Vital Signs 06/03/17 00:04 Temperature 99.7 F H Pulse Rate 118 H Respiratory 18 Rate Blood Pressure 176/90 O2 Sat by Pulse 82 L Oximetry - Consultations Consultation #1: 06/03/17 00:55 Nephrology paged ED Medical Decision Making - Lab Data Result diagrams: 06/03/17 00:17 06/03/17 00:17 Laboratory Tests 06/03/17 06/03/17 06/03/17 00:17 00:17 00:17 WBC 3.8 L RBC 2.49 L Hgb 8.0 L Hct 24.4 L MCV 98 H MCH 32 MCHC 33 RDW 20.0 H Plt Count 141 Lymph % (Auto) 17.1 [place] % (Auto) 7.3 Eos % (Auto) 2.2 Baso % (Auto) 0.3 Lymph # 0.6 L [place] # 0.3 Eos # 0.1 Baso # 0.0 Seg Neutrophils % 73.1 H Seg Neutrophils # 2.8 PT 17.1 H INR 1.40 H APTT 35.3 Sodium 136 L Potassium 4.3 Chloride 91.7 L Carbon Dioxide 25 Anion Gap 24 BUN 34 H Creatinine 6.0 H Estimated GFR 9 BUN/Creatinine Ratio 5.66 Glucose 97 Calcium 8.7 Total Bilirubin 0.40 AST 23 ALT 9 Alkaline Phosphatase 91 Total Creatine Kinase 46 CK-MB (CK-2) < 1.0 CK-MB (CK-2) Rel Index 2.1 Troponin T 0.150 H* Total Protein 8.0 Albumin 3.5 L Albumin/Globulin Ratio 0.8 Triglycerides 50 Cholesterol 113 LDL Cholesterol Direct 35 L HDL Cholesterol 68 H Cholesterol/HDL Ratio 1.66 - EKG Data -: EKG Interpreted by Me EKG shows normal: sinus rhythm Rate: tachycardia (108 bpm) - EKG Data When compared to previous EKG there are: previous EKG unavailable Interpretation: nonspecific ST-T wave bebo (T-wave inversions in leads 1 and aVL) - Radiology Data Radiology results: report reviewed (CT chest), image reviewed (chest x-ray, CT chest) interpreted by me: Chest [id number]. Mild cephalization CT chest (read by radiologist)-moderate vascular congestion. There are underlying chronic obstructive pulmonary changes with slight fibrosis. There is some atelectasis in both lower lungs. Consolidation identified in the right lower lung laterally is most likely infectious infiltrate. No evidence of pulmonary arterial emboli. - Differential Diagnosis pulmonary edema, pneumonia, pneumothorax Critical care attestation.: If time is entered above; I have spent that time in minutes in the direct care of this critically ill patient, excluding procedure time. ED Disposition Clinical Impression: Shortness of breath, Hypoxia, Pneumonia, ESRD on hemodialysis, Volume overload Disposition: OP ADMIT IP TO THIS HOSP Is pt being admited?: Yes Does the pt Need Aspirin: Yes Condition: Serious Instructions: Bacterial Pneumonia (ED) Referrals: PRIMARY CARE, [Primary Care Provider] - 3-5 Days Time of Disposition: 02:51 (hospitalist paged)
[2017-06-03 00:51] LABS: Basophils % (Auto) 0.3 % (0.0-1.8); Eosinophils % (Auto) 2.2 % (0.0-4.3); Hematocrit 24.4 % (30.3-42.9); Mean Corpuscular HGB Conc 33 % (30-34); Mean Corpuscular Hemoglobin 32 pg (28-32); Mean Corpuscular Volume 98 fl (79-97); Platelet Count 141 K/mm3 (140-440); Red Blood Count 2.49 M/mm3 (3.65-5.03); White Blood Count 3.8 K/mm3 (4.5-11.0)
[2017-06-03 00:57] LABS: Alanine Aminotransferase 9 units/L (7-56); Albumin 3.5 g/dL (3.9-5); Albumin/Globulin Ratio 0.8 %; Alkaline Phosphatase 91 units/L (35-129); Anion Gap 24 mmol/L; BUN/Creatinine Ratio 5.66; Blood Urea Nitrogen 34 mg/dL (7-17); Calcium 8.7 mg/dL (8.4-10.2); Carbon Dioxide 25 mmol/L (22-30); Chloride 91.7 mmol/L (98-107); Creatine Kinase 46 units/L (30-135); Creatine Kinase MB < 1.0 ng/mL (0.0-4.0); Glucose 97 mg/dL (65-100); Potassium 4.3 mmol/L (3.6-5.0); Sodium 136 mmol/L (137-145)
[2017-06-03 01:00] LABS: INR 1.4 (0.87-1.13)
[2017-06-03 01:01] LABS: Partial Thromboplastin Time 35.3 Sec. (24.2-36.6)
[2017-06-03 01:50] LABS: Cholesterol 113 mg/dL (50-199); HDL Cholesterol 68 mg/dL (40-59); LDL Cholesterol,Direct 35 mg/dL (50-130); Triglycerides 50 mg/dL (2-149)
--- NOTE | 2017-06-03 02:41 | Cat Scan Report ---
FINAL REPORT PROCEDURE: CT ANGIO CHEST TECHNIQUE: Computerized tomographic angiography of the chest was performed after the IV injection of iodinated nonionic contrast including image processing. The image data was postprocessed using 2-dimensional multiplanar reformatted (MPR) and 3-dimensional (MIP and/or volume rendered) techniques. HISTORY: shortness of breath, hypoxia COMPARISON: No prior studies are available for comparison. FINDINGS: Heart and pericardium: The heart is enlarged. No pericardial infusion. Thoracic aorta: Normal. Pulmonary vasculature: No evidence of pulmonary arterial emboli.. Lymph nodes: There are few lymph nodes in the mediastinum, these measure up to 12 millimeters.. Lungs: Chronic obstructive pulmonary changes with mild underlying fibrosis. Mild atelectasis bilateral lower lungs. There is an area of consolidation identified in the right lower lung laterally, infectious etiology is suspected. Followup studies will be needed to determine resolution of this region. No prior studies are available for review. The central airway is patent. Moderate vascular congestion is noted. Pleural space: Minimal pleural thickening identified in the dependent portion of both lower lungs. No effusion or pneumothorax.. Musculoskeletal structures: No significant abnormality. Upper abdominal structures: No significant abnormality. IMPRESSION: Moderate vascular congestion. There are underlying chronic obstructive pulmonary changes with slight fibrosis. There is some atelectasis in both lower lungs. Consolidation identified in the right lower lung laterally is most likely infectious infiltrate. Followup studies to determine resolution will be appropriate. Moderate cardiomegaly. No evidence of pulmonary arterial emboli.
[2017-06-03] MEDS ORDERED: ZOSYN/NS 2.25 GM/50ML 2.25 GM/50 ML BAG IV ONE (02:48)
[2017-06-03] MEDS ORDERED: ATIVAN IV ONE (02:49)
[2017-06-03] MEDS ORDERED: ASPIRIN PO ONE (02:51)
[2017-06-03 02:55] LABS: ISTAT Base Excess 4; ISTAT HCO3 27.6; ISTAT PCO2 37.3 (35-45); ISTAT PH 7.477 (7.35-7.45); ISTAT PO2 60 (80-105); ISTAT SO2 92; ISTAT TCO2 29
--- NOTE | 2017-06-03 07:36 | XRay Report ---
AP CHEST: HISTORY: Shortness of breath Mild cardiomegaly, mild pulmonary venous congestion and small pleural effusions are identified. These findings are slightly increased since 04/27/17. The right IJ venous catheter has been replaced with a left IJ venous catheter which is in good position. No pneumothorax. Normal bony structures. IMPRESSION: Mild CHF.
[2017-06-03] MEDS ORDERED: PROVENTIL IH PRN (09:10)
[2017-06-03] MEDS ORDERED: MEGACE PO SCH (10:00)
[2017-06-03] MEDS ORDERED: DULCOLAX PR PRN (10:00)
[2017-06-03] MEDS ORDERED: ZOFRAN IV PRN (10:00)
[2017-06-03] MEDS ORDERED: NON-FORMULARY (Sertraline Hcl [Zoloft] 50 MG) PO SCH (10:00)
--- NOTE | 2017-06-03 10:56 | Consultation ---
History of Present Illness - Reason for Consult Consult date: 06/03/17 end stage renal disease - History of Present Illness This is a 51 year old female who presents to the E.R today for a chief complaint of Shortness of breath. Patient has intermittent shortness of breath that has been present for the past 3 months. Patient has underwent numerous hospitalizations between [facility] and [facility] for treatment of CHF, Pleural Effusions and Pulmonary Edema. Patient has history of COPD, CHF, Pneumonia, Pleural Effusions, Anemia, Impaired Cardiac Valve requiring surgery but refused, Hypertension, Anxiety, Lupus and ESRD on Hemodialysis at [facility]. Patient is non-compliant with HD some weeks. Patient was seen during clinic rounds at the dialysis clinic yesterday on 06/02/17 and during rounds, patient had shortness of breath. Patient's UF goal at time of rounds was noted to be set at 1000ml. Dialysis nurses states the patient demanded that no more than 1000 ml should be pulled. Attempted to increase UF goal during rounds yesterday to challenge volume removal since patient weight gain was actually 1900 ml between treatment , however patient refused to have UF goal increased stating that she has a dry cough which means she does not have fluid on her per patient. Explained to patient that she needs more fluid removed and the consequences of volume overload, patient refused. Patient also terminated her treatment early yesterday. Patient is non-compliant with hemodialysis prescription. Also continues to refuse to have AVF placed. We will hemodialyze patient today with UF goal of 3-4 liters ordered. Patient will also likely receive hemodialysis tomorrow as well. We are being consulted for management of this patient's ESRD. Past History Past Medical History: anemia, COPD, dialysis, ESRD, heart failure, hypertension , renal failure Past Surgical History: Other (Perm-cath palcement x 2) Social history: no significant social history Family history: no significant family history Medications and Allergies Allergies Allergy/AdvReac Type Severity Reaction Status Date / Time No Known Allergies Allergy Verified 06/03/17 00:04 Home Medications Medication Instructions Recorded Confirmed Last Taken Type Megestrol Acetate 40 ml PO DAILY 07/27/16 06/03/17 1 Day Ago History AtorvaSTATin [Lipitor] 40 mg PO DAILY 04/23/17 06/03/17 Unknown History Dicyclomine [Bentyl] 10 mg PO DAILY 04/23/17 06/03/17 Unknown History Sertraline HCl [Zoloft] 50 mg PO DAILY 04/23/17 06/03/17 Unknown History Sodium Bicarbonate 650 mg PO BID 04/23/17 06/03/17 Unknown History Metoprolol [Lopressor TAB] 25 mg PO BID #60 tablet 04/27/17 06/03/17 Unknown Rx traMADol [Ultram 50 MG tab] 50 mg PO Q8H PRN #15 tablet 04/27/17 06/03/17 Unknown Rx Active Meds: Active Medications Acetaminophen (Tylenol) 650 mg PO Q4H PRN PRN Reason: Pain MILD(1-3)/Fever >100.5/ORDAZ Albuterol (Proventil) 2.5 mg IH Q3HRT PRN PRN Reason: Shortness Of Breath Albuterol/Ipratropium (Duoneb *Not For Prn Use*) 1 ampul IH Q6HRT [facility] Atorvastatin Calcium (Lipitor) 40 mg PO DAILY [facility]CU[facility] Bisacodyl (Dulcolax) 10 mg ID QDAY PRN PRN Reason: Constipation unrelieved by MOM Dicyclomine HCl (Bentyl) 10 mg PO DAILY [facility] Heparin Sodium (Porcine) (Heparin) 5,000 unit SUB-Q Q12HR [facility] Levofloxacin/Dextrose (Levaquin 500mg/100ml) 500 mg in 100 mls @ 100 mls/hr IV ONCE ONE PRN Reason: Protocol Stop: 06/03/17 11:59 Levofloxacin/Dextrose (Levaquin 250mg/50ml) 250 mg in 50 mls @ 100 mls/hr IV Q48H [facility] Megestrol Acetate (Megace) mg PO DAILY [facility] Methylprednisolone Sodium Succinate (Solu-Medrol) 40 mg IV Q6H [facility] Metoprolol Tartrate (Lopressor) 25 mg PO BID [facility] Ondansetron HCl (Zofran) 4 mg IV Q8H PRN PRN Reason: Nausea And Vomiting Sertraline HCl (Zoloft) 50 mg PO QDAY [facility] Sodium Bicarbonate (Sodium Bicarbonate) 650 mg PO BID [facility] Review of Systems Constitutional: fatigue, weakness, no weight loss, no weight gain, no fever, no chills, no sweats, no malaise, no lethargy Ears, nose, mouth and throat: no ear pain, no ear discharge, no tinnitis, no decreased hearing, no nose pain, no nasal congestion, no nasal discharge Breasts: deferred Cardiovascular: shortness of breath, dyspnea on exertion, no chest pain, no orthopnea, no palpitations, no rapid/irregular heart beat, no edema, no syncope , no lightheadedness Respiratory: cough, shortness of breath, dyspnea on exertion, no cough with sputum, no excessive sputum, no hemoptysis Gastrointestinal: no nausea, no vomiting, no diarrhea, no constipation, no change in bowel habits Genitourinary Female: no dysmenorrhea, no pelvic pain, no flank pain, no menorrhagia, no dysuria, no urinary frequency Musculoskeletal: no neck stiffness, no neck pain, no shooting arm pain, no arm numbness/tingling, no low back pain, no shooting leg pain, no leg numbness/ tingling Integumentary: no pruritis, no redness, no sores, no wounds, no jaundice Neurological: weakness, no transient paralysis, no paralysis, no parathesias, no numbness, no tingling, no seizures, no syncope Psychiatric: no memory loss, no change in sleep habits, no sleep disturbances, no insomnia, no hypersomnia, no change in appetite Endocrine: no cold intolerance, no polyphagia, no excessive thirst, no polydipsia, no polyuria Hematologic/Lymphatic: no easy bruising, no easy bleeding, no lymphadenopathy, no lymphedema Exam - Vital Signs Vital signs: Vital Signs Temp Pulse Resp BP Pulse Ox 99.7 F H 118 H 18 176/90 82 L 06/03/17 00:04 06/03/17 00:04 06/03/17 00:04 06/03/17 00:04 06/03/17 00:04 - General Appearance General appearance: well-developed, appears stated age, fatigue EENT: ATNC, PERRL, hearing intact, vision intact Neck: Present: neck supple, trachea midline Respiratory: Decreased Breath Sounds Heart: tachycardia, S1S2 Gastrointestinal: Present: normoactive bowel sounds Integumentary: warm and dry Neurologic: alert and oriented x3 Musculoskeletal: Present: other (No edema) Psychiatric: cooperative Results - Lab Results 06/03/17 00:17 06/03/17 00:17 Most recent lab results Calcium 8.7 mg/dL (8.4-10.2) 06/03/17 00:17 Assessment and Plan - Patient Problems (1) Shortness of breath Current Visit: Yes Status: Acute Plan to address problem: Hemodialysis today for UF and clearance CXR done showed Mild CHF (2) ESRD on hemodialysis Current Visit: Yes Status: Chronic Plan to address problem: Hemodialysis today for clearance and UF. UF goal 3.0-4.0 liters today Likely hemodialysis again tomorrow Fluid restriction of 1 Liter per day Renally dose medications Monitor I/O's (3) Anemia in chronic kidney disease (CKD) Current Visit: No Status: Chronic Qualifiers: Chronic kidney disease stage: C Plan to address problem: Epogen 20,000 units with HD (4) Hypertensive CKD, ESRD on dialysis Current Visit: No Status: Chronic Plan to address problem: Resume home BP medications
[2017-06-03] MEDS ORDERED: LEVAQUIN 500MG/100ML 500 MG/100 ML BAG IV ONE (11:00)
--- NOTE | 2017-06-03 11:25 | Admit Criteria Form ---
Admission Criteria Documentation: PNEUMONIA, COMMUNITY ACQUIRED Clinical Indications for Admission to Inpatient Care (Place ' X' for any and all applicable criteria): Admission to inpatient status for two midnights or more is indicated for ANY ONE of the following (1)(2)(3): [X ]I. Hypoxia [ ]II. Hemodynamic instability [ ]III. Altered mental status that is severe or persistent [ ]IV. Dehydration that is severe or persistent. [ ]V. Bacteremia [ ]. Moderate-risk or high-risk category patients (Pneumonia Severity Index ( PSI) class IV or V, or CURB-65 score of 3 or greater). [ ]VII. Intermediate-risk category patients (e.g., PSI class III or CURB-65 score 2) who do not improve with outpatient and observation care treatment [ ]VIII. Outpatient treatment failure as indicated by 1 or more of the following(9): [ ]a) Failure to respond to antibiotic (eg, resistant organism) [ ]b) Clinically significant adverse effects from medication (eg, vomiting) [ ]c) Complications of pneumonia (eg, empyema, bacteremia) [ ]d) Significant worsening of comorbid cond necessitating inpatient care (eg, chronic heart failure) [ ]IX. Appropriate diagnostic testing and treatment unavailable in outpatient or recovery facility (eg, testing or infection control measures unavailable) [ ]X. Respiratory finding (eg. tachypnea) that do not respond to outpatient observation care treatment [ ]XI. Complicated pleural effusions (eg, emphysema, exudative, loculated) [ ]XII. Immunocompromised patients (e.g., AIDS, chronic steroid use) at moderate or high risk based on clinical evaluation. Extended stay beyond goal length of stay may be needed for (20) [ ]a) Unclear diagnosis [ ]b) Pleural disease [ ]c) Severe pneumonia or treatment failure [ ]d) Respiratory failure [ ]e) New onset hyponatremia (serum Na concentration less than 135 mEq/L(mmol/ L) [ ]f) Clinically significant comorbid illness (eg, heart failure, atrial fibrillation with rapid heart rate, alcohol withdrawal, renal insufficiency)(34)(35) [ ]g) Comorbid acute exacerbation of COPD(36) [ ]h) Concomitant diagnosis of malignancy [ ]i) Concomitant altered mental status [ ]j) Culture-identified Gram-negative or antibiotic-resistant organism (eg, Pseudomonas, methicillin-resistant Staphylococcus aureus MRSA)(30) [ ]k) Healthcare-associated pneumonia (36) The original [facility] content created [facility] has been revised. The portions of the content which have been revised are identified through the use of italic text or in bold, and [facility] has neither reviewed nor approved the modified material. All other unmodified content is copyright [facility]. Please see references footnoted in the original [facility] edition 2016 Admission Criteria Met: Yes
--- NOTE | 2017-06-03 11:28 | History and Physical Report ---
<IAN PALACIOS - Last Filed: 06/03/17 15:39> History of Present Illness Date of examination: 06/03/17 Date of admission: 06/03/17 08:50 Chief complaint: Shortness of breath History of present illness: Patient is a 51 years old -[place] female with past medical history Lupus, COPD, CHF and ESRD on hemodialysis. who presents to the emergency department complaining of shortness of breath. A 7 days of worsening dyspnea on light exertion and cough. Just over two days ago the patient was at her normal baseline state of health. Now s weight he has had progressive worsening of his dyspnea on exertion (HOWELL) to where he cannot walk across a room or talk while sitting up without becoming short of breath. Patient reported that her last dialysis was yesterday but was partially due to bad leg itching. Past History Past Medical History: anemia, COPD, dialysis, ESRD, heart failure, hypertension , renal failure Past Surgical History: Other (Perm-cath palcement x 2) Social history: no significant social history Family history: no significant family history Medications and Allergies Allergies Allergy/AdvReac Type Severity Reaction Status Date / Time No Known Allergies Allergy Verified 06/03/17 00:04 Home Medications Medication Instructions Recorded Confirmed Last Taken Type Megestrol Acetate 40 ml PO DAILY 07/27/16 06/03/17 1 Day Ago History AtorvaSTATin [Lipitor] 40 mg PO DAILY 04/23/17 06/03/17 Unknown History Dicyclomine [Bentyl] 10 mg PO DAILY 04/23/17 06/03/17 Unknown History Sertraline HCl [Zoloft] 50 mg PO DAILY 04/23/17 06/03/17 Unknown History Sodium Bicarbonate 650 mg PO BID 04/23/17 06/03/17 Unknown History Metoprolol [Lopressor TAB] 25 mg PO BID #60 tablet 04/27/17 06/03/17 Unknown Rx traMADol [Ultram 50 MG tab] 50 mg PO Q8H PRN #15 tablet 04/27/17 06/03/17 Unknown Rx Active Meds: Active Medications Acetaminophen (Tylenol) 650 mg PO Q4H PRN PRN Reason: Pain MILD(1-3)/Fever >100.5/ORDAZ Albuterol (Proventil) 2.5 mg IH Q3HRT PRN PRN Reason: Shortness Of Breath Albuterol/Ipratropium (Duoneb *Not For Prn Use*) 1 ampul IH Q6HRT REPLACED BY [facility] Atorvastatin Calcium (Lipitor) 40 mg PO DAILY PASCUAL Bisacodyl (Dulcolax) 10 mg NM QDAY PRN PRN Reason: Constipation unrelieved by MOM Dicyclomine HCl (Bentyl) 10 mg PO DAILY REPLACED BY [facility] Epoetin Wes (Epogen) 20,000 unit IV MARIANNA PRN PRN Reason: hemodialysis Heparin Sodium (Porcine) (Heparin) 5,000 unit SUB-Q Q12HR PASCUAL Levofloxacin/Dextrose (Levaquin 500mg/100ml) 500 mg in 100 mls @ 100 mls/hr IV ONCE ONE PRN Reason: Protocol Stop: 06/03/17 11:59 Levofloxacin/Dextrose (Levaquin 250mg/50ml) 250 mg in 50 mls @ 100 mls/hr IV Q48H REPLACED BY [facility] Sodium Chloride (Nacl 0.9%) 100 mls @ 999 mls/hr IV MARIANNA PRN PRN Reason: Hypotension Megestrol Acetate (Megace) 400 mg PO DAILY REPLACED BY [facility] Methylprednisolone Sodium Succinate (Solu-Medrol) 40 mg IV Q6H REPLACED BY [facility] Metoprolol Tartrate (Lopressor) 25 mg PO BID REPLACED BY [facility] Ondansetron HCl (Zofran) 4 mg IV Q8H PRN PRN Reason: Nausea And Vomiting Sertraline HCl (Zoloft) 50 mg PO QDAY REPLACED BY [facility] Sodium Bicarbonate (Sodium Bicarbonate) 650 mg PO BID REPLACED BY [facility] Review of Systems Constitutional: no weight loss, no weight gain, no fever, no chills Ears, nose, mouth and throat: no ear pain, no ear discharge, no tinnitis, no decreased hearing Breasts: no change in shape, no swelling Cardiovascular: shortness of breath, dyspnea on exertion, no chest pain, no orthopnea, no palpitations, no rapid/irregular heart beat Respiratory: cough, shortness of breath, dyspnea on exertion, sleep apnea, no excessive sputum Gastrointestinal: no nausea, no vomiting, no diarrhea, no constipation Genitourinary Female: no dyspareunia, no dysmenorrhea, no pelvic pain Menstruation: no currently menstrual, no premenarcheal, no ammenorrhea Musculoskeletal: no neck stiffness, no neck pain, no shooting arm pain, no arm numbness/tingling Integumentary: no rash, no pruritis, no redness, no sores Neurological: no head injury, no transient paralysis, no paralysis, no weakness , no numbness Psychiatric: no anxiety, no memory loss, no change in sleep habits, no sleep disturbances, no insomnia Endocrine: no cold intolerance, no polyphagia, no excessive thirst, no polydipsia Hematologic/Lymphatic: no easy bruising, no easy bleeding Allergic/Immunologic: no urticaria, no allergic rhinitis, no wheezing Exam - Constitutional Vitals: Temp Pulse Resp BP Pulse Ox 99.7 F H 87 25 H 139/72 100 06/03/17 00:04 06/03/17 09:34 06/03/17 09:34 06/03/17 09:34 06/03/17 09:34 General appearance: Present: no acute distress - EENT Eyes: Present: PERRL ENT: hearing intact, clear oral mucosa - Neck Neck: Present: supple - Respiratory Respiratory effort: normal Respiratory: bilateral: rales, wheezing - Cardiovascular Heart rate: 98 Rhythm: regular Heart Sounds: Present: S1 & S2 - Extremities Extremities: no ischemia Peripheral Pulses: within normal limits - Abdominal General gastrointestinal: Present: soft, non-tender Female genitourinary: Present: deferred - Rectal Rectal Exam: deferred - Integumentary Integumentary: Present: clear, warm, dry - Musculoskeletal Musculoskeletal: strength equal bilaterally - Psychiatric Psychiatric: appropriate mood/affect - Neurologic Neurologic: CNII-XII intact - Allied Health Allied health notes reviewed: nursing Results - Labs CBC & Chem 7: 06/03/17 00:17 06/03/17 00:17 Labs: Laboratory Last Values WBC 3.8 K/mm3 (4.5-11.0) L 06/03/17 00:17 RBC 2.49 M/mm3 (3.65-5.03) L 06/03/17 00:17 Hgb 8.0 gm/dl (10.1-14.3) L 06/03/17 00:17 Hct 24.4 % (30.3-42.9) L 06/03/17 00:17 MCV 98 fl (79-97) H 06/03/17 00:17 MCH 32 pg (28-32) 06/03/17 00:17 MCHC 33 % (30-34) 06/03/17 00:17 RDW 20.0 % (13.2-15.2) H 06/03/17 00:17 Plt Count 141 K/mm3 (140-440) 06/03/17 00:17 Lymph % (Auto) 17.1 % (13.4-35.0) 06/03/17 00:17 [place] % (Auto) 7.3 % (0.0-7.3) 06/03/17 00:17 Eos % (Auto) 2.2 % (0.0-4.3) 06/03/17 00:17 Baso % (Auto) 0.3 % (0.0-1.8) 06/03/17 00:17 Lymph # 0.6 K/mm3 (1.2-5.4) L 06/03/17 00:17 [place] # 0.3 K/mm3 (0.0-0.8) 06/03/17 00:17 Eos # 0.1 K/mm3 (0.0-0.4) 06/03/17 00:17 Baso # 0.0 K/mm3 (0.0-0.1) 06/03/17 00:17 Seg Neutrophils % 73.1 % (40.0-70.0) H 06/03/17 00:17 Seg Neutrophils # 2.8 K/mm3 (1.8-7.7) 06/03/17 00:17 PT 17.1 Sec. (12.2-14.9) H 06/03/17 00:17 INR 1.40 (0.87-1.13) H 06/03/17 00:17 APTT 35.3 Sec. (24.2-36.6) 06/03/17 00:17 POC ABG pH 7.477 (7.35-7.45) H 06/03/17 02:45 POC ABG pCO2 37.3 (35-45) 06/03/17 02:45 POC ABG pO2 60 (80-105) L 06/03/17 02:45 POC ABG HCO3 27.6 06/03/17 02:45 POC ABG Total CO2 29 06/03/17 02:45 POC ABG O2 Sat 92 06/03/17 02:45 POC ABG Base Excess 4 06/03/17 02:45 FiO2 28 % 06/03/17 02:45 Sodium 136 mmol/L (137-145) L 06/03/17 00:17 Potassium 4.3 mmol/L (3.6-5.0) 06/03/17 00:17 Chloride 91.7 mmol/L (98-107) L 06/03/17 00:17 Carbon Dioxide 25 mmol/L (22-30) 06/03/17 00:17 Anion Gap 24 mmol/L 06/03/17 00:17 BUN 34 mg/dL (7-17) H 06/03/17 00:17 Creatinine 6.0 mg/dL (0.7-1.2) H 06/03/17 00:17 Estimated GFR 9 ml/min 06/03/17 00:17 BUN/Creatinine Ratio 5.66 % 06/03/17 00:17 Glucose 97 mg/dL (65-100) 06/03/17 00:17 Calcium 8.7 mg/dL (8.4-10.2) 06/03/17 00:17 Total Bilirubin 0.40 mg/dL (0.1-1.2) 06/03/17 00:17 AST 23 units/L (5-40) 06/03/17 00:17 ALT 9 units/L (7-56) 06/03/17 00:17 Alkaline Phosphatase 91 units/L (35-129) 06/03/17 00:17 Total Creatine Kinase 46 units/L (30-135) 06/03/17 00:17 CK-MB (CK-2) < 1.0 ng/mL (0.0-4.0) 06/03/17 00:17 CK-MB (CK-2) Rel Index 2.1 (0-4) 06/03/17 00:17 Troponin T 0.150 ng/mL (0.00-0.029) H* 06/03/17 00:17 Total Protein 8.0 g/dL (6.3-8.2) 06/03/17 00:17 Albumin 3.5 g/dL (3.9-5) L 06/03/17 00:17 Albumin/Globulin Ratio 0.8 % 06/03/17 00:17 Triglycerides 50 mg/dL (2-149) 06/03/17 00:17 Cholesterol 113 mg/dL (50-199) 06/03/17 00:17 LDL Cholesterol Direct 35 mg/dL (50-130) L 06/03/17 00:17 HDL Cholesterol 68 mg/dL (40-59) H 06/03/17 00:17 Cholesterol/HDL Ratio 1.66 % 06/03/17 00:17 - Imaging and Cardiology Chest x-ray: image reviewed (mild CHF) CT scan - chest: image reviewed (right lower consolidation) Assessment and Plan Assessment and plan: Acute respiratory failure with hypoxia Patient had an SPO2 of 80% on room air upon their arrival this improved with BiPAP 35%. Patient currently on 3LNC with Spo2 >95%, no acute respiratory distress noted. ABG when necessary Oxygen supplement as needed Closely monitor patient. Pneumonia CTA revealed right lower lobe consolidation Blood culture collected prior to antibiotic We started on empiric antibiotic treatment with IV Levaquin Aggressive nebulizers therapy We will repeat CBC COPD exacerbation Duoneb every 6 hours IV steroids Solu-Medrol every 6 hours Oxygen supplement Acute on chronic congestive heart failure Chest x-ray revealed mild congestive heart failure Patient has recent echocardiogram with LVEF 40-45% and Cath 09/12/2016 - normal coronaries Continue on beta blockers, an NHI inhibitors Low sodium/cardiac diet/fluid restriction to 100 ml in 24 hours Closely monitor electrolytes Cardiac evaluation End-stage Renal Disease (ESRD) Patient will have dialysis today Nephrology consulted Hypertension resume home antihypertensive medications Lupus Stable Resume home meds. DVT prophylaxis Heparin Advance Directives: Yes VTE prophylaxis?: Chemical Contraindication Mechanical VTE Prophylaxis: Treatment Not Indicated Plan of care discussed with patient/family: Yes <J CARLOS NOLAN - Last Filed: 06/03/17 18:02> History of Present Illness Date of admission: 06/03/17 08:50 Medications and Allergies Active Meds: Active Medications Acetaminophen (Tylenol) 650 mg PO Q4H PRN PRN Reason: Pain MILD(1-3)/Fever >100.5/ORDAZ Last Admin: 06/03/17 12:32 Dose: 650 mg Albuterol (Proventil) 2.5 mg IH Q3HRT PRN PRN Reason: Shortness Of Breath Albuterol/Ipratropium (Duoneb *Not For Prn Use*) 1 ampul IH Q6HRT REPLACED BY [facility] Last Admin: 06/03/17 16:27 Dose: 1 ampul Atorvastatin Calcium (Lipitor) 40 mg PO DAILY REPLACED BY [facility] Last Admin: 06/03/17 15:15 Dose: 40 mg Bisacodyl (Dulcolax) 10 mg NM QDAY PRN PRN Reason: Constipation unrelieved by MOM Dicyclomine HCl (Bentyl) 10 mg PO DAILY REPLACED BY [facility] Last Admin: 06/03/17 15:12 Dose: Not Given Epoetin Wes (Epogen) 20,000 unit IV MARIANNA PRN PRN Reason: hemodialysis Last Admin: 06/03/17 14:30 Dose: 20,000 unit Heparin Sodium (Porcine) (Heparin) 5,000 unit SUB-Q Q12HR REPLACED BY [facility] Last Admin: 06/03/17 15:12 Dose: Not Given Heparin Sodium (Porcine) (Heparin) 5,000 unit IV MARIANNA PRN PRN Reason: hemodialysis Last Admin: 06/03/17 14:56 Dose: 5,000 unit Levofloxacin/Dextrose (Levaquin 250mg/50ml) 250 mg in 50 mls @ 100 mls/hr IV Q48H REPLACED BY [facility] Sodium Chloride (Nacl 0.9%) 100 mls @ 999 mls/hr IV MARIANNA PRN PRN Reason: Hypotension Megestrol Acetate (Megace) 40 mg PO DAILY REPLACED BY [facility] Methylprednisolone Sodium Succinate (Solu-Medrol) 40 mg IV Q6H REPLACED BY [facility] Last Admin: 06/03/17 17:29 Dose: Not Given Metoprolol Tartrate (Lopressor) 25 mg PO BID REPLACED BY [facility] Last Admin: 06/03/17 15:13 Dose: Not Given Ondansetron HCl (Zofran) 4 mg IV Q8H PRN PRN Reason: Nausea And Vomiting Sertraline HCl (Zoloft) 50 mg PO QDAY REPLACED BY [facility] Last Admin: 06/03/17 15:15 Dose: Not Given Sodium Bicarbonate (Sodium Bicarbonate) 650 mg PO BID REPLACED BY [facility] Last Admin: 06/03/17 15:15 Dose: Not Given Exam - Constitutional Vitals: Temp Pulse Resp BP Pulse Ox 97.8 F 104 H 18 126/67 100 06/03/17 14:15 06/03/17 14:15 06/03/17 14:15 06/03/17 14:15 06/03/17 11:00 Results - Labs CBC & Chem 7: 06/03/17 00:17 06/03/17 00:17 Labs: Laboratory Last Values WBC 3.8 K/mm3 (4.5-11.0) L 06/03/17 00:17 RBC 2.49 M/mm3 (3.65-5.03) L 06/03/17 00:17 Hgb 8.0 gm/dl (10.1-14.3) L 06/03/17 00:17 Hct 24.4 % (30.3-42.9) L 06/03/17 00:17 MCV 98 fl (79-97) H 06/03/17 00:17 MCH 32 pg (28-32) 06/03/17 00:17 MCHC 33 % (30-34) 06/03/17 00:17 RDW 20.0 % (13.2-15.2) H 06/03/17 00:17 Plt Count 141 K/mm3 (140-440) 06/03/17 00:17 Lymph % (Auto) 17.1 % (13.4-35.0) 06/03/17 00:17 [place] % (Auto) 7.3 % (0.0-7.3) 06/03/17 00:17 Eos % (Auto) 2.2 % (0.0-4.3) 06/03/17 00:17 Baso % (Auto) 0.3 % (0.0-1.8) 06/03/17 00:17 Lymph # 0.6 K/mm3 (1.2-5.4) L 06/03/17 00:17 [place] # 0.3 K/mm3 (0.0-0.8) 06/03/17 00:17 Eos # 0.1 K/mm3 (0.0-0.4) 06/03/17 00:17 Baso # 0.0 K/mm3 (0.0-0.1) 06/03/17 00:17 Seg Neutrophils % 73.1 % (40.0-70.0) H 06/03/17 00:17 Seg Neutrophils # 2.8 K/mm3 (1.8-7.7) 06/03/17 00:17 PT 17.1 Sec. (12.2-14.9) H 06/03/17 00:17 INR 1.40 (0.87-1.13) H 06/03/17 00:17 APTT 35.3 Sec. (24.2-36.6) 06/03/17 00:17 POC ABG pH 7.477 (7.35-7.45) H 06/03/17 02:45 POC ABG pCO2 37.3 (35-45) 06/03/17 02:45 POC ABG pO2 60 (80-105) L 06/03/17 02:45 POC ABG HCO3 27.6 06/03/17 02:45 POC ABG Total CO2 29 06/03/17 02:45 POC ABG O2 Sat 92 06/03/17 02:45 POC ABG Base Excess 4 06/03/17 02:45 FiO2 28 % 06/03/17 02:45 Sodium 136 mmol/L (137-145) L 06/03/17 00:17 Potassium 4.3 mmol/L (3.6-5.0) 06/03/17 00:17 Chloride 91.7 mmol/L (98-107) L 06/03/17 00:17 Carbon Dioxide 25 mmol/L (22-30) 06/03/17 00:17 Anion Gap 24 mmol/L 06/03/17 00:17 BUN 34 mg/dL (7-17) H 06/03/17 00:17 Creatinine 6.0 mg/dL (0.7-1.2) H 06/03/17 00:17 Estimated GFR 9 ml/min 06/03/17 00:17 BUN/Creatinine Ratio 5.66 % 06/03/17 00:17 Glucose 97 mg/dL (65-100) 06/03/17 00:17 Calcium 8.7 mg/dL (8.4-10.2) 06/03/17 00:17 Total Bilirubin 0.40 mg/dL (0.1-1.2) 06/03/17 00:17 AST 23 units/L (5-40) 06/03/17 00:17 ALT 9 units/L (7-56) 06/03/17 00:17 Alkaline Phosphatase 91 units/L (35-129) 06/03/17 00:17 Total Creatine Kinase 46 units/L (30-135) 06/03/17 00:17 CK-MB (CK-2) < 1.0 ng/mL (0.0-4.0) 06/03/17 00:17 CK-MB (CK-2) Rel Index 2.1 (0-4) 06/03/17 00:17 Troponin T 0.150 ng/mL (0.00-0.029) H* 06/03/17 00:17 Total Protein 8.0 g/dL (6.3-8.2) 06/03/17 00:17 Albumin 3.5 g/dL (3.9-5) L 06/03/17 00:17 Albumin/Globulin Ratio 0.8 % 06/03/17 00:17 Triglycerides 50 mg/dL (2-149) 06/03/17 00:17 Cholesterol 113 mg/dL (50-199) 06/03/17 00:17 LDL Cholesterol Direct 35 mg/dL (50-130) L 06/03/17 00:17 HDL Cholesterol 68 mg/dL (40-59) H 06/03/17 00:17 Cholesterol/HDL Ratio 1.66 % 06/03/17 00:17 Assessment and Plan Assessment and plan: I saw and evaluated the patient. I agree with the findings and the plan of care as documented in the Nurse Practitioner's H/P note. Advance Directives: Yes VTE prophylaxis?: Chemical Plan of care discussed with patient/family: Yes
[2017-06-03] MEDS ORDERED: NACL 0.9% 100 ML IV PRN (12:00)
[2017-06-03] MEDS ORDERED: NACL 0.9 (PRIMING MACHINE ONLY DIALYSIS) MC ONE (12:06)
[2017-06-03] MEDS: TYLENOL PO PRN ×2 (12:32→21:28)
[2017-06-03] MEDS: HEPARIN IV PRN (14:56)
[2017-06-03] MEDS: HEPARIN SUB-Q SCH ×2 (15:12→21:29)
[2017-06-03] MEDS: BENTYL PO SCH (15:12)
[2017-06-03] MEDS: LOPRESSOR PO SCH ×2 (15:13→21:28)
[2017-06-03] MEDS: SODIUM BICARBONATE PO SCH ×2 (15:15→21:29)
[2017-06-03] MEDS: ZOLOFT PO SCH (15:15)
[2017-06-03] MEDS: DUONEB *Not for PRN Use IH SCH ×2 (16:27→20:51)
[2017-06-03] MEDS: ATARAX PO PRN (22:15)
[2017-06-04] MEDS: DUONEB *Not for PRN Use IH SCH ×4 (02:38→20:44)
[2017-06-04] MEDS: TYLENOL PO PRN (06:48)
[2017-06-04] MEDS: ATARAX PO PRN ×2 (06:48→10:38)
[2017-06-04 07:18] LABS: Basophils % (Auto) 0.4 % (0.0-1.8); Eosinophils % (Auto) 0.1 % (0.0-4.3); Hematocrit 25.1 % (30.3-42.9); Hemoglobin 8.1 gm/dl (10.1-14.3); Mean Corpuscular HGB Conc 32 % (30-34); Mean Corpuscular Hemoglobin 31 pg (28-32); Mean Corpuscular Volume 96 fl (79-97); Platelet Count 129 K/mm3 (140-440); Red Blood Count 2.61 M/mm3 (3.65-5.03); Red Cell Distribution Width 19.5 % (13.2-15.2); White Blood Count 2.4 K/mm3 (4.5-11.0)
[2017-06-04 07:32] LABS: Albumin 3.6 g/dL (3.9-5); Albumin/Globulin Ratio 0.9 %; BUN/Creatinine Ratio 7.59; Bilirubin,Total 0.3 mg/dL (0.1-1.2); Calcium 8.8 mg/dL (8.4-10.2); Potassium 3.9 mmol/L (3.6-5.0); Total Protein 7.8 g/dL (6.3-8.2)
--- NOTE | 2017-06-04 09:01 | Progress Note ---
Assessment and Plan (1) Shortness of breath Current Visit: Yes Status: Acute Plan to address problem: due to pulm congestion HD again today (2) ESRD on hemodialysis Current Visit: Yes Status: Chronic Plan to address problem: Hemodialysis again today for clearance and UF. Fluid restriction of 1 Liter per day Renally dose medications Monitor I/O's (3) Anemia in chronic kidney disease (CKD) Current Visit: No Status: Chronic Qualifiers: Chronic kidney disease stage: C Plan to address problem: Epogen 20,000 units with HD (4) Hypertensive CKD, ESRD on dialysis Current Visit: No Status: Chronic Plan to address problem: Resume home BP medications Subjective Date of service: 06/04/17 Principal diagnosis: ESRD Interval history: breathing improved after HD yesterday Objective - Vital Signs Vital signs: Vital Signs - 12hr 06/03/17 06/03/17 06/03/17 21:09 21:28 22:00 Temperature Pulse Rate 104 H 96 H Pulse Rate [ 100 H Anterior Bilateral Throughout] Pulse Rate [ Posterior Bilateral Throughout] Respiratory 18 Rate Respiratory 18 Rate [Anterior Bilateral Throughout] Respiratory Rate [Posterior Bilateral Throughout] Blood Pressure 133/61 O2 Sat by Pulse Oximetry 06/04/17 06/04/17 06/04/17 00:00 02:39 04:00 Temperature 97.9 F 97.0 F L Pulse Rate 89 84 Pulse Rate [ 89 Anterior Bilateral Throughout] Pulse Rate [ Posterior Bilateral Throughout] Respiratory 22 20 Rate Respiratory 18 Rate [Anterior Bilateral Throughout] Respiratory Rate [Posterior Bilateral Throughout] Blood Pressure 127/59 120/62 O2 Sat by Pulse 94 98 Oximetry 06/04/17 06/04/17 06/04/17 06:48 07:05 08:55 Temperature 97.9 F Pulse Rate 96 H Pulse Rate [ Anterior Bilateral Throughout] Pulse Rate [ 98 H Posterior Bilateral Throughout] Respiratory 18 16 Rate Respiratory Rate [Anterior Bilateral Throughout] Respiratory 18 Rate [Posterior Bilateral Throughout] Blood Pressure 167/74 O2 Sat by Pulse 97 Oximetry 06/04/17 08:58 Temperature Pulse Rate Pulse Rate [ Anterior Bilateral Throughout] Pulse Rate [ Posterior Bilateral Throughout] Respiratory Rate Respiratory Rate [Anterior Bilateral Throughout] Respiratory Rate [Posterior Bilateral Throughout] Blood Pressure O2 Sat by Pulse 99 Oximetry - General Appearance General appearance: well-developed, well-nourished EENT: ATNC, PERRL, mucous membranes moist Neck: no JVD, no carotid bruit Respiratory: Present: Decreased Breath Sounds. Absent: Rales, Ronchi Cardiology: regular, S1S2 Gastrointestinal: normoactive bowel sounds, no tenderness, no distended, no guarding Integumentary: no rash, warm and dry Neurologic: no focal deficit, no asterixis, alert and oriented x3 Musculoskeletal: other (no edema in BLE) Psychiatric: mood/affect appropriate, cooperative - Lab 06/04/17 06:48 06/04/17 06:48 Most recent lab results Calcium 8.8 mg/dL (8.4-10.2) 06/04/17 06:48 Phosphorus 4.00 mg/dL (2.5-4.5) 06/04/17 06:48
--- NOTE | 2017-06-04 09:03 | Progress Note ---
<IAN PALACIOS - Last Filed: 06/04/17 13:36> Assessment and Plan Assessment and plan: Acute respiratory failure with hypoxia Most likely due to pulmonary congestion. Patient SPO2 improved, Patient currently on 3LNC with Spo2 >95%, no acute respiratory distress noted. ABG when necessary Oxygen supplement as needed Closely monitor patient. Pneumonia CTA revealed right lower lobe consolidation Blood culture collected prior to antibiotic Continue on empiric antibiotic treatment with IV Levaquin Aggressive nebulizers therapy We will repeat CBC COPD exacerbation Continue Duoneb every 6 hours Continue IV steroids Solu-Medrol every 6 hours Oxygen supplement Acute on chronic congestive heart failure Chest x-ray revealed mild congestive heart failure Patient has recent echocardiogram with LVEF 40-45% and Cath 09/12/2016 - normal coronaries Continue on beta blockers, an NHI inhibitors Low sodium/cardiac diet/fluid restriction to 100 ml in 24 hours Closely monitor electrolytes Cardiac evaluation End-stage Renal Disease (ESRD) Patient has dialysis today Nephrology consulted Hypertension resume home antihypertensive medications Lupus Stable Resume home meds. DVT prophylaxis Heparin Advance Directives: Yes VTE prophylaxis?: Chemical Contraindication Mechanical VTE Prophylaxis: Treatment Not Indicated Plan of care discussed with patient/family: Yes History Interval history: Patient reported dyspnea with mild exertion. Hospitalist Physical - Constitutional Vitals: Temp Pulse Resp BP Pulse Ox 97.9 F 98 H 18 167/74 99 06/04/17 07:05 06/04/17 08:55 06/04/17 08:55 06/04/17 07:05 06/04/17 08:58 General appearance: Present: no acute distress - EENT Eyes: Present: PERRL ENT: hearing intact - Neck Neck: Present: supple - Respiratory Respiratory: bilateral: wheezing - Cardiovascular Heart rate: 98 Rhythm: regular Heart Sounds: Present: S1 & S2 - Extremities Extremities: no ischemia Peripheral Pulses: within normal limits - Abdominal General gastrointestinal: soft, non-tender - Integumentary Integumentary: Present: clear, warm, dry - Psychiatric Psychiatric: appropriate mood/affect - Neurologic Neurologic: CNII-XII intact - Allied Health Allied health notes reviewed: nursing Results - Labs CBC & Chem 7: 06/04/17 06:48 06/04/17 06:48 Labs: Laboratory Last Values WBC 2.4 K/mm3 (4.5-11.0) L 06/04/17 06:48 RBC 2.61 M/mm3 (3.65-5.03) L 06/04/17 06:48 Hgb 8.1 gm/dl (10.1-14.3) L 06/04/17 06:48 Hct 25.1 % (30.3-42.9) L 06/04/17 06:48 MCV 96 fl (79-97) 06/04/17 06:48 MCH 31 pg (28-32) 06/04/17 06:48 MCHC 32 % (30-34) 06/04/17 06:48 RDW 19.5 % (13.2-15.2) H 06/04/17 06:48 Plt Count 129 K/mm3 (140-440) L 06/04/17 06:48 Lymph % (Auto) 11.8 % (13.4-35.0) L 06/04/17 06:48 [place] % (Auto) 4.2 % (0.0-7.3) 06/04/17 06:48 Eos % (Auto) 0.1 % (0.0-4.3) 06/04/17 06:48 Baso % (Auto) 0.4 % (0.0-1.8) 06/04/17 06:48 Lymph # 0.3 K/mm3 (1.2-5.4) L 06/04/17 06:48 [place] # 0.1 K/mm3 (0.0-0.8) 06/04/17 06:48 Eos # 0.0 K/mm3 (0.0-0.4) 06/04/17 06:48 Baso # 0.0 K/mm3 (0.0-0.1) 06/04/17 06:48 Seg Neutrophils % 83.5 % (40.0-70.0) H 06/04/17 06:48 Seg Neutrophils # 2.0 K/mm3 (1.8-7.7) 06/04/17 06:48 PT 17.1 Sec. (12.2-14.9) H 06/03/17 00:17 INR 1.40 (0.87-1.13) H 06/03/17 00:17 APTT 35.3 Sec. (24.2-36.6) 06/03/17 00:17 POC ABG pH 7.477 (7.35-7.45) H 06/03/17 02:45 POC ABG pCO2 37.3 (35-45) 06/03/17 02:45 POC ABG pO2 60 (80-105) L 06/03/17 02:45 POC ABG HCO3 27.6 06/03/17 02:45 POC ABG Total CO2 29 06/03/17 02:45 POC ABG O2 Sat 92 06/03/17 02:45 POC ABG Base Excess 4 06/03/17 02:45 FiO2 28 % 06/03/17 02:45 Sodium 133 mmol/L (137-145) L 06/04/17 06:48 Potassium 3.9 mmol/L (3.6-5.0) 06/04/17 06:48 Chloride 89.0 mmol/L (98-107) L 06/04/17 06:48 Carbon Dioxide 28 mmol/L (22-30) 06/04/17 06:48 Anion Gap 20 mmol/L 06/04/17 06:48 BUN 41 mg/dL (7-17) H 06/04/17 06:48 Creatinine 5.4 mg/dL (0.7-1.2) H 06/04/17 06:48 Estimated GFR 10 ml/min 06/04/17 06:48 BUN/Creatinine Ratio 7.59 % 06/04/17 06:48 Glucose 209 mg/dL (65-100) H 06/04/17 06:48 Calcium 8.8 mg/dL (8.4-10.2) 06/04/17 06:48 Phosphorus 4.00 mg/dL (2.5-4.5) 06/04/17 06:48 Total Bilirubin 0.30 mg/dL (0.1-1.2) 06/04/17 06:48 AST 20 units/L (5-40) 06/04/17 06:48 ALT 8 units/L (7-56) 06/04/17 06:48 Alkaline Phosphatase 126 units/L (35-129) 06/04/17 06:48 Total Creatine Kinase 46 units/L (30-135) 06/03/17 00:17 CK-MB (CK-2) < 1.0 ng/mL (0.0-4.0) 06/03/17 00:17 CK-MB (CK-2) Rel Index 2.1 (0-4) 06/03/17 00:17 Troponin T 0.150 ng/mL (0.00-0.029) H* 06/03/17 00:17 Total Protein 7.8 g/dL (6.3-8.2) 06/04/17 06:48 Albumin 3.6 g/dL (3.9-5) L 06/04/17 06:48 Albumin/Globulin Ratio 0.9 % 06/04/17 06:48 Triglycerides 50 mg/dL (2-149) 06/03/17 00:17 Cholesterol 113 mg/dL (50-199) 06/03/17 00:17 LDL Cholesterol Direct 35 mg/dL (50-130) L 06/03/17 00:17 HDL Cholesterol 68 mg/dL (40-59) H 06/03/17 00:17 Cholesterol/HDL Ratio 1.66 % 06/03/17 00:17 <J CARLOS NOLAN M - Last Filed: 06/04/17 14:40> Assessment and Plan Assessment and plan: I saw and evaluated the patient. I agree with the findings and the plan of care as documented in the Nurse Practitioner's progress note, with the following corrections and additions. Disposition: Possible discharge tomorrow. Hospitalist Physical - Constitutional Vitals: Temp Pulse Resp BP Pulse Ox 97.6 F 98 H 18 137/69 99 06/04/17 13:49 06/04/17 14:31 06/04/17 14:31 06/04/17 13:49 06/04/17 08:58 Results - Labs CBC & Chem 7: 06/04/17 06:48 06/04/17 06:48 Labs: Laboratory Last Values WBC 2.4 K/mm3 (4.5-11.0) L 06/04/17 06:48 RBC 2.61 M/mm3 (3.65-5.03) L 06/04/17 06:48 Hgb 8.1 gm/dl (10.1-14.3) L 06/04/17 06:48 Hct 25.1 % (30.3-42.9) L 06/04/17 06:48 MCV 96 fl (79-97) 06/04/17 06:48 MCH 31 pg (28-32) 06/04/17 06:48 MCHC 32 % (30-34) 06/04/17 06:48 RDW 19.5 % (13.2-15.2) H 06/04/17 06:48 Plt Count 129 K/mm3 (140-440) L 06/04/17 06:48 Lymph % (Auto) 11.8 % (13.4-35.0) L 06/04/17 06:48 [place] % (Auto) 4.2 % (0.0-7.3) 06/04/17 06:48 Eos % (Auto) 0.1 % (0.0-4.3) 06/04/17 06:48 Baso % (Auto) 0.4 % (0.0-1.8) 06/04/17 06:48 Lymph # 0.3 K/mm3 (1.2-5.4) L 06/04/17 06:48 [place] # 0.1 K/mm3 (0.0-0.8) 06/04/17 06:48 Eos # 0.0 K/mm3 (0.0-0.4) 06/04/17 06:48 Baso # 0.0 K/mm3 (0.0-0.1) 06/04/17 06:48 Seg Neutrophils % 83.5 % (40.0-70.0) H 06/04/17 06:48 Seg Neutrophils # 2.0 K/mm3 (1.8-7.7) 06/04/17 06:48 PT 17.1 Sec. (12.2-14.9) H 06/03/17 00:17 INR 1.40 (0.87-1.13) H 06/03/17 00:17 APTT 35.3 Sec. (24.2-36.6) 06/03/17 00:17 POC ABG pH 7.477 (7.35-7.45) H 06/03/17 02:45 POC ABG pCO2 37.3 (35-45) 06/03/17 02:45 POC ABG pO2 60 (80-105) L 06/03/17 02:45 POC ABG HCO3 27.6 06/03/17 02:45 POC ABG Total CO2 29 06/03/17 02:45 POC ABG O2 Sat 92 06/03/17 02:45 POC ABG Base Excess 4 06/03/17 02:45 FiO2 28 % 06/03/17 02:45 Sodium 133 mmol/L (137-145) L 06/04/17 06:48 Potassium 3.9 mmol/L (3.6-5.0) 06/04/17 06:48 Chloride 89.0 mmol/L (98-107) L 06/04/17 06:48 Carbon Dioxide 28 mmol/L (22-30) 06/04/17 06:48 Anion Gap 20 mmol/L 06/04/17 06:48 BUN 41 mg/dL (7-17) H 06/04/17 06:48 Creatinine 5.4 mg/dL (0.7-1.2) H 06/04/17 06:48 Estimated GFR 10 ml/min 06/04/17 06:48 BUN/Creatinine Ratio 7.59 % 06/04/17 06:48 Glucose 209 mg/dL (65-100) H 06/04/17 06:48 Calcium 8.8 mg/dL (8.4-10.2) 06/04/17 06:48 Phosphorus 4.00 mg/dL (2.5-4.5) 06/04/17 06:48 Total Bilirubin 0.30 mg/dL (0.1-1.2) 06/04/17 06:48 AST 20 units/L (5-40) 06/04/17 06:48 ALT 8 units/L (7-56) 06/04/17 06:48 Alkaline Phosphatase 126 units/L (35-129) 06/04/17 06:48 Total Creatine Kinase 46 units/L (30-135) 06/03/17 00:17 CK-MB (CK-2) < 1.0 ng/mL (0.0-4.0) 06/03/17 00:17 CK-MB (CK-2) Rel Index 2.1 (0-4) 06/03/17 00:17 Troponin T 0.150 ng/mL (0.00-0.029) H* 06/03/17 00:17 Total Protein 7.8 g/dL (6.3-8.2) 06/04/17 06:48 Albumin 3.6 g/dL (3.9-5) L 06/04/17 06:48 Albumin/Globulin Ratio 0.9 % 06/04/17 06:48 Triglycerides 50 mg/dL (2-149) 06/03/17 00:17 Cholesterol 113 mg/dL (50-199) 06/03/17 00:17 LDL Cholesterol Direct 35 mg/dL (50-130) L 06/03/17 00:17 HDL Cholesterol 68 mg/dL (40-59) H 06/03/17 00:17 Cholesterol/HDL Ratio 1.66 % 06/03/17 00:17
[2017-06-04] MEDS: BENTYL PO SCH (09:13)
[2017-06-04] MEDS: HEPARIN SUB-Q SCH ×2 (09:13→22:21)
[2017-06-04] MEDS: MEGACE PO SCH (09:14)
[2017-06-04] MEDS: SODIUM BICARBONATE PO SCH ×2 (09:14→22:21)
[2017-06-04] MEDS: LOPRESSOR PO SCH ×2 (09:14→22:22)
[2017-06-04] MEDS: ZOLOFT PO SCH (09:15)
[2017-06-04] MEDS ORDERED: NACL 0.9 (PRIMING MACHINE ONLY DIALYSIS) MC ONE (10:30)
[2017-06-04] MEDS ORDERED: DUONEB *Not for PRN Use IH ONE (14:10)
[2017-06-04] MEDS: HEPARIN IV PRN (14:23)
[2017-06-05] MEDS: DUONEB *Not for PRN Use IH SCH ×2 (02:19→09:29)
[2017-06-05] MEDS: TYLENOL PO PRN (03:23)
[2017-06-05] MEDS: ATARAX PO PRN (03:24)
[2017-06-05 06:50] LABS: Basophils % (Auto) 0.3 % (0.0-1.8); Hematocrit 25.9 % (30.3-42.9); Hemoglobin 8.5 gm/dl (10.1-14.3); Mean Corpuscular HGB Conc 33 % (30-34); Mean Corpuscular Hemoglobin 32 pg (28-32); Mean Corpuscular Volume 96 fl (79-97); Platelet Count 133 K/mm3 (140-440); Red Cell Distribution Width 19.4 % (13.2-15.2); White Blood Count 5.9 K/mm3 (4.5-11.0)
[2017-06-05 07:01] LABS: Calcium 9.4 mg/dL (8.4-10.2); Potassium 4.4 mmol/L (3.6-5.0)
--- NOTE | 2017-06-05 08:48 | Discharge Summary ---
<IAN PALACIOS - Last Filed: 06/05/17 15:43> Providers - Providers Date of Admission: 06/03/17 08:50 Date of discharge: 06/05/17 Attending physician: J CARLOS NOLAN MD Primary care physician: WOOD BORING MACHINE OPERATOR Hospitalization Hospital course: Patient is a 51 years old -Turk[place] female with past medical history Lupus, COPD, CHF and ESRD on hemodialysis. who presents to the emergency department complaining of shortness of breath. A 7 days of worsening dyspnea on light exertion and cough. Patient was diagnosed with Acute respiratory failure with hypoxia, Pneumonia, COPD exacerbation,Acute on chronic congestive heart failure,End-stage Renal Disease (ESRD),Hypertension and Lupus. She was treated with hemodialysis, supplemental oxygen, aggressive nebulizer therapy, IV steroids and IV antibiotics. Patient completed a full course of antibiotic. She is being discharged on oral antibiotic. Also D/C with oral steroid taper upon discharge. Patient clinically improved and stable for discharge. Patient was advised to follow up with her primary care. Diagnosed Acute respiratory failure with hypoxia Pneumonia COPD exacerbation Acute on chronic congestive heart failure End-stage Renal Disease (ESRD) Hypertension Lupus Disposition: DC-01 TO HOME OR SELFCARE Time spent for discharge: 33 minutes Core Measure Documentation - Palliative Care Palliative Care/ Comfort Measures: Not Applicable - Core Measures Any of the following diagnoses?: none Exam - Constitutional Vitals: Temp Pulse Resp BP Pulse Ox 97.7 F 88 18 141/67 97 06/05/17 00:00 06/05/17 04:00 06/05/17 04:00 06/05/17 04:00 06/05/17 04:00 General appearance: Present: no acute distress - EENT Eyes: Present: PERRL ENT: hearing intact - Neck Neck: Present: supple - Respiratory Respiratory effort: normal Respiratory: negative: wheezing (mild but clinically improved) - Cardiovascular Heart rate: 91 Rhythm: regular Heart Sounds: Present: S1 & S2 - Extremities Extremities: no ischemia Peripheral Pulses: within normal limits - Abdominal General gastrointestinal: Present: soft, non-tender Female genitourinary: Present: deferred - Rectal Rectal Exam: deferred - Integumentary Integumentary: Present: clear, warm, dry - Musculoskeletal Musculoskeletal: strength equal bilaterally - Psychiatric Psychiatric: appropriate mood/affect - Neurologic Neurologic: CNII-XII intact - Allied Health Allied health notes reviewed: nursing Plan Activity: no restrictions Weight Bearing Status: Weight Bear as Tolerated Diet: low fat, low cholesterol, low salt Prescriptions: Levofloxacin [Levaquin] 250 mg PO QDAY #3 tablet Prednisone [predniSONE 10 mg (6-Day Pack, 21 Tabs)] 10 mg PO .TAPER #1 tab.ds.pk Levofloxacin [Levaquin TAB] 500 mg PO Q48HR #5 tablet <J CARLOS NOLAN - Last Filed: 06/05/17 18:47> Providers - Providers Date of Admission: 06/03/17 08:50 Attending physician: J CARLOS NOLAN MD Primary care physician: WOOD BORING MACHINE OPERATOR Exam - Constitutional Vitals: Temp Pulse Resp BP Pulse Ox 97.5 F L 88 20 144/70 97 06/05/17 10:00 06/05/17 13:01 06/05/17 13:01 06/05/17 11:20 06/05/17 10:00 Plan Activity: no restrictions Weight Bearing Status: Full Weight Bearing Diet: low fat, low cholesterol, low salt, renal
[2017-06-05 09:05] VITALS: BP 144/70
--- NOTE | 2017-06-05 09:17 | Progress Note ---
Assessment and Plan (1) Shortness of breath Current Visit: Yes Status: Acute Plan to address problem: due to pulm congestion resolved (2) ESRD on hemodialysis Current Visit: Yes Status: Chronic Plan to address problem: no indication for HD today Ok to be discharged from renal standpoint, next HD is scheduled tomorrow as an outpatient in [facility] (3) Anemia in chronic kidney disease (CKD) Current Visit: No Status: Chronic Qualifiers: Chronic kidney disease stage: C Plan to address problem: Epogen 20,000 units with HD (4) Hypertensive CKD, ESRD on dialysis Current Visit: No Status: Chronic Plan to address problem: cont current meds Subjective Date of service: 06/05/17 Principal diagnosis: ESRD Interval history: tolerated HD well yesterday, breathing is back to normal Objective - Vital Signs Vital signs: Vital Signs - 12hr 06/05/17 06/05/17 06/05/17 00:00 04:00 07:00 Temperature 97.7 F 97.7 F Pulse Rate 90 88 94 H Respiratory 18 18 18 Rate Blood Pressure 149/73 141/67 144/70 O2 Sat by Pulse 99 97 100 Oximetry - General Appearance General appearance: well-developed, well-nourished, appears stated age EENT: ATNC, PERRL, mucous membranes moist Neck: no JVD, no carotid bruit Respiratory: Present: Clear to Ascultation. Absent: Rales, Ronchi Cardiology: regular, S1S2 Gastrointestinal: normoactive bowel sounds, no tenderness, no distended, no guarding Integumentary: no rash, warm and dry Neurologic: no focal deficit, no asterixis, alert and oriented x3 Musculoskeletal: other (no edema in BLE) Psychiatric: mood/affect appropriate, cooperative - Lab 06/05/17 06:20 06/05/17 06:20 Most recent lab results Calcium 9.4 mg/dL (8.4-10.2) 06/05/17 06:20 Phosphorus 4.00 mg/dL (2.5-4.5) 06/04/17 06:48
[2017-06-05] MEDS ORDERED: LEVAQUIN 500MG/100ML 500 MG/100 ML BAG IV SCH (10:00)
[2017-06-05] MEDS ORDERED: LEVAQUIN 250MG/50ML 250 MG/50 ML BAG IV SCH (11:00)
[2017-06-05] MEDS: BENTYL PO SCH (11:16)
[2017-06-05] MEDS: HEPARIN SUB-Q SCH (11:16)
[2017-06-05] MEDS: MEGACE PO SCH (11:19)
[2017-06-05] MEDS: SODIUM BICARBONATE PO SCH (11:19)
[2017-06-05] MEDS: LOPRESSOR PO SCH (11:20)
[2017-06-05] MEDS: ZOLOFT PO SCH (11:20)
[2017-06-05] MEDS ORDERED: LEVAQUIN PO SCH (12:00)
--- NOTE | 2017-06-05 12:54 | Query- Pneumonia ---
Triny Pradhan___Mic Date:___06/05/2017 Senior Fund Accountant/CDS:___Jacklyn Phone#:____[phone] Exercise your independent professional judgment when responding to query. Questions asked do not imply a particular answer is desired or expected. We greatly appreciate your clarification on this issue. Clinical Documentation States: 51 Year old female was admitted on 06/03/2017. The Hospitalist Progress note on 06/04/2017 states "Pneumonia CTA revealed right lower lobe consolidation Blood culture collected prior to antibiotic Continue on empiric antibiotic treatment with IV Levaquin." The Hospitalist H&P states "Patient is a 51 years old -[place] female with past medical history Lupus, COPD, CHF and ESRD on hemodialysis. who presents to the emergency department complaining of shortness of breath. A 7 days of worsening dyspnea on light exertion and cough." Please further specify known or suspected Etiology: [ ] Aspiration Pneumonia [ x] Gram Negative Pneumonia [ ] Gram Positive Pneumonia [ ] Pseudomonas Pneumonia [ ] MRSA - related Pneumonia [ ] Viral Pneumonia [ ] Candidal Pneumonia [ ] Postoperative Pneumonia [ ] Lobar/Basilar Pneumonia [ ] Community Acquired Pneumonia [ ] Bacterial, other (Please specify organism if possible) [ ] Other: [ ] Unable to determine Present on Admission: [x ] Yes (Y) [ ] Clinically undeterminable (W) [ ] No (N) Please also document response in your Progress Notes and/or Discharge Summary and indicate if the condition was present on admission. SELENED
== END 2017-06-05 12:00 | disposition home health service (06) | DRG 177 ==
LOC: ED 23:52 → 4A 06-03 08:50 → 3A 06-03 12:07
PROVIDERS: ADMIT Internal Medicine; ATTEND Internal Medicine
PROC: 5A1D00Z (ICD-10-PCS; principal; 2017-06-03)
PROC: 4A033R1 Measurement of Arterial Saturation, Peripheral, Percutaneous Approach (ICD-10-PCS; 2017-06-03)
PROC: 5A09357 Assistance with Respiratory Ventilation, Less than 24 Consecutive Hours, Continuous Positive Airway Pressure (ICD-10-PCS; 2017-06-03)
DX: J15.6 Pneumonia due to other Gram-negative bacteria (principal); J96.01 Acute respiratory failure with hypoxia; N18.6 End stage renal disease; I50.23 Acute on chronic systolic (congestive) heart failure; J44.1 Chronic obstructive pulmonary disease with (acute) exacerbation; J44.0 Chronic obstructive pulmonary disease with (acute) lower respiratory infection; I13.2 Hypertensive heart and chronic kidney disease with heart failure and with stage 5 chronic kidney disease, or end stage renal disease; M32.9 Systemic lupus erythematosus, unspecified; M19.90 Unspecified osteoarthritis, unspecified site; D63.1 Anemia in chronic kidney disease; Z99.2 Dependence on renal dialysis
CPT/HCPCS: 36415; 71010; 71275; 80048; 80053; 80061; 82550; 82553; 82803; 84100; 84484; 85025; 85610; 85730; 87040; 93005; 93010; 94640; 94760; 96365; 96375; A9270-GY; J0885; J1644; J1956; J2060; J2543; J2920; J7030; Q9967